=== PATIENT | male | born 1945 | race Caucasian/White ===

== ENCOUNTER → 2016-09-30 | Outpatient (CLI) | payer OTHER ==
[~2016-09-30] MED LIST: ASPI81TA28 PO; CLOTLOT2; CRG25 PO; DOFE125C PO; FINA5TAB PO; LSX20 PO; LTN/10 PO; SIMV20TA5 OR; SPR25 PO; XRL20 PO
--- NOTE | 2016-10-01 06:36 | PAP/PSG TECHNICIAN REPORT ---
[facility] Gsa Coordinator Polysomnogram Report Study name: None Report date: 10/01/2016 Study date: 09/30/2016 Referring Physician: DR. Jr JANSEN Name: JAJA FRASER Interpreting Physician: Kahlil Moran M.D. Date of : 1945 Gsa Coordinator: Manjeet Smith RPSGT. Sex: Male Age: 71 StudyType: PSG PAP Weight: 215 lbs Height: 71 years, Height 5' 8" BMI: 32.69 Medications: FINASTERIDE 5 MG, ATORVASTATIN CALCIUM 80 MG, CLOTRIMAZOLE-BETAMETHASONE, METOPROLOL SUCCINATE ER 25 MG, XARELTO 20 MG, VITAMIN D3 2000 UNIT Patient History PATIENT HAS HISTORY OF CORONARY ARTERY DISEASE, HYPERTENSION, PAROXYSMAL ATRIAL FIBRILLATION AND HYPERLIPIDEMIA. ALSO HAS HISTORY OF DAYTIME SLEEPINESS, SNORING AND FATIGUE. HE HAD A HOME SLEEP STUDY DONE AND WAS POSITIVE FOR YOU WITH AN AHI OF 16. HE IS HERE TODAY FOR A CPAP TITRATION. ESS = 19 RM 8 Parameters Monitored NPSG: E1-M2, E2-M1, Fp1-M2, Fp2-M1, F3-M2, F4-M2, F4-M1, C3-M2, C4-M2, C4-M1, O1-M2, O2-M2, O2-M1, T3-M2, T4-M1, P3-M2, P4-M1, CHIN1, CHIN2, HR, EKG, Legs, PFLOW, SNOR, FLOW, CFLOW, Tidal Volume, THOR, ABDO, SpO2, PLTH, CPRESS, ETCO2 Wave, ETCO2, pH Sleep Architecture Sleep Stages Time at Lights Off 10:02:05 PM STAGES Time (min.) TST (%) Time at Lights On 5:11:05 AM Wake 56.5 -- Total Recording Time (TRT) 429.50 min. N1 40.0 11 Total Sleep Period (TSP) 424.5 min. N2 243.5 65 Total Sleep Time (TST) 372.5min. N3 5.0 1 Awake Time 57.0 min. REM 84.0 23 Wake after Sleep Onset 53.0 min. Sleep Efficiency (SE) 87 % Sleep Onset Latency (CHANDAN) 3.5 min. Number of Stage 1 Shifts None Awakenings 35 Stage Changes 147 Number of REM periods 19 REM 84.0 23 REM Latency 60.5 min. NREM 288.5 77 Body Position Analysis Supine Right Left Side Prone Vertical Total Sleep Time (min.) 281.0 80.7 50.1 130.85 0.0 0.0 Total Sleep Time (%) 65% 22% 13% 35 0% N/A% Total Sleep Time REM (min.) 67.4 16.6 0.0 None 0.0 0.0 Total Sleep Time NREM (min.) 174.2 64.1 50.1 None 0.0 0.0 Intermittent Wake (min.) 39.4 3.6 13.5 None 0.0 0.0 Total Sleep Period (%) 66% None None None None None Arousals Myoclonus (PLM) * Events Count Index Events Count Index Spontaneous 86 14 Events Awake (PLMW) 29 30.8 Respiratory 33 5.2 Events Asleep w/ Arousal (PLMA) 17 2.7 PLM 17 3 Events Asleep w/o Arousal (PLMS) 105 16.9 Snoring 3 0 Total Asleep 122 19.7 Total 139 22 Total 151 21 Respiratory Analysis * CA OA MA CH H RERA Total Count 19 4 0 0 63 11 86 Index 3.1 0.6 0.0 0 10.1 2 15.6 Mean Duration 19.0 13.4 0.0 0.00 19.8 17.2 19.1 Longest Duration 30.4 14.9 0.0 0.00 0.0 20.1 35.8 Respiratory Event Summary Total Supine ~Supine Right Left Prone REM NREM Apneas Count 23 23 0 0 0 N/A 1 22 Index 3.7 6 0 0.0 0.0 N/A 1 5 Hypopneas (4% Desat) Count 63 53 10 1 9 N/A 2 61 Index 10.1 13.2 5 0.7 10.8 N/A 1.4 12.7 Apneas & All Hypopneas Count 86 76 10 1 9 N/A 3 83 Index 13.9 19 5 1 11 N/A 2.1 17.3 Respiratory Events (Content Writer+All Hyp+RERA) Count 86 86 11 1 10 N/A 3 83 Index 15.6 21 5 0.7 12.0 N/A 2.1 19.5 Respiratory Related Arousal Count 33 86 2 0 2 N/A 0 32 Index 5.2 7 1 0 2 N/A 0 7 Snoring Analysis Supine Right Left Prone REM NREM Total Snore duration 2.8 min Snores count 55 3 4 N/A 4 58 62 Snore mean duration 2.7 Sec Snores index 14 2 5 N/A 2.9 12.1 10.0 TST with snoring (%) 0.8% Desaturation Event Summary: Minimum %SpO2 Event Count Mean/Min/Max Duration(sec.) Desaturation Index % Time In Bed > 90 83 31.4 / 13.3 / 65.1 12.1 96.7 86 - 90 0 N/A 0.0 3.3 81 - 85 0 N/A 0.0 0.0 76 - 80 0 N/A 0.0 0.0 71 - 75 0 N/A 0.0 0.0 66 - 70 0 N/A 0.0 0.0 61 - 65 0 N/A 0.0 0.0 56 - 60 0 N/A 0.0 0.0 51 - 55 0 N/A 0.0 0.0 < 50 0 N/A 0.0 0.0 Total REM NREM Awake <50% 0.0 min. 0.0 min. 0.0 min. 0.0 min. 51 - 60% 0.0 min. 0.0 min. 0.0 min. 0.0 min. 61 - 70% 0.0 min. 0.0 min. 0.0 min. 0.0 min. 71 - 80% 0.0 min. 0.0 min. 0.0 min. 0.0 min. 81 - 90% 13.9 min. 6.0 min. 5.7 min. 2.2 min. 91 - 100% 413.0 min. 78.0 min. 281.6 min. 53.5 min. Average 93 92 93 94 Minimum SpO2 87 89 87 88 Desaturation Event Index 11.6 2.9 15.2 9.6 # Desat. Events below 89% 2 N/A 2 N/A Time(%) with Saturation below 89% 0.2 0.0 0.1 0.1 Time(min.) with Saturation below 89% 0.7 0.0 0.4 0.4 Time (mins) REM (mins) NREM (mins) % of TST SpO2 Below 90% 31 2 N29 0.7 SpO2 Below 88% 1 0 0 0 Heart Rate Analysis Min (bpm) Max (bpm) Average (bpm) Awake 47 127 57 NREM 44 76 54 REM 37 76 56 Overall 37 76 54 Supplemental O2 Values Minimum O2 level: None Value Start Time End Time Gsa Coordinator Comments Mr. Fraser slept in the right, left and supine positions. PAC's and PVC's noted. Leg movements noted. No bruxism noted. CPAP was initiated at +4 CMH2O and up-titrated to a level of +13 CMH2O At this pressure I switched to BIPAP due to high pressure, high leak and continued central apneas. I started BIPAP at 12/8 and up-titrated to 17/10 due to apneas and hypopneas. A Resmed Mirage Quattro full face size large mask was used during titration Mr. Fraser awoke to use the restroom 0 times during the night. Mr. Fraser stated I slept as well as I do when I am in my own bed. The final report will be interpreted and signed by a sleep physician. The completed physician report will then be placed in the patient medical record. Therapy Event: Therapy (cm H20) 4 5 6 7 8 9 10 11 Total Time at Pressure (min.) 29.7 24.6 11.0 15.9 39.5 9.7 8.3 12.2 TST at Pressure (min.) 23.2 24.6 10.5 14.9 38.5 9.7 8.3 10.7 # Periods 1 1 1 1 1 1 1 1 Sleep Onset (min.) 3.5 0.0 0.0 0.0 0.0 0.0 0.0 0.0 REM Onset (min.) N/A N/A 9.6 0.0 0.0 N/A N/A N/A Sleep Efficiency % 78 100 95 93 97 100 100 87 Wakefulness (%) 21.9 0.0 4.5 6.3 2.5 0.0 0.0 12.3 Wakefulness (min.) 6.5 0.0 0.5 1.0 1.0 0.0 0.0 1.5 NREM 1 (%) 8.4 4.1 18.1 21.9 13.9 0.0 0.0 8.4 NREM 1 (min.) 2.5 1.0 2.0 3.5 5.5 0.0 0.0 1.0 NREM 2 (%) 69.7 85.8 64.7 15.7 9.9 100.0 100.0 79.2 NREM 2 (min.) 20.7 21.1 7.1 2.5 3.9 9.7 8.3 9.6 NREM 3 (%) 0.0 10.1 0.0 0.0 0.0 0.0 0.0 0.0 NREM 3 (min.) 0.0 2.5 0.0 0.0 0.0 0.0 0.0 0.0 REM (%) 0.0 0.0 12.7 56.1 73.7 0.0 0.0 0.0 REM (min.) 0.0 0.0 1.4 8.9 29.2 0.0 0.0 0.0 # Arousals 3 9 8 6 12 6 5 7 Arousal Index 7.8 21.9 45.5 24.1 18.7 37.1 36.3 39.4 # Snore 2 2 6 3 5 5 6 1 Snore Index 5.2 4.9 34.1 12.0 7.8 30.9 43.6 5.6 AHI 5.2 14.6 56.9 20.1 7.8 43.2 36.3 28.1 AHI Supine N/A 61.4 75.1 51.4 7.8 43.2 36.3 28.1 AHI Non-Supine 5.2 12.7 0.0 5.8 N/A N/A N/A N/A NREM AHI 5.2 14.6 65.6 50.0 25.5 43.2 36.3 28.1 REM AHI N/A N/A 0.0 0.0 2.1 N/A N/A N/A RDI 5.2 14.6 56.9 20.1 7.8 49.4 43.6 28.1 # Obstructive 0 0 0 0 0 0 0 0 # Central Ap 0 0 5 0 0 0 0 1 # Mixed 0 0 0 0 0 0 0 0 # Hypopneas 2 6 5 5 5 7 5 4 RERAS 0 0 0 0 0 1 1 0 Total Respiratory Events 2 6 10 5 5 8 6 5 Time Below SpO2 89.00% (min.) 0.0 0.0 0.1 0.0 0.0 0.1 0.0 0.0 Mean NREM SpO2 (%) 93 93 93 93 93 93 93 94 Mean REM SpO2 (%) N/A N/A 91 91 92 N/A N/A N/A Mean Sleep SpO2 (%) 93 93 93 92 92 93 93 94 Min NREM SpO2 (%) 91 91 87 89 89 87 90 89 Min REM SpO2 (%) N/A N/A 89 89 89 N/A N/A N/A Position Supine (min.) 0.0 1.0 8.0 4.7 38.5 9.7 8.3 10.7 Position Non-supine (min.) 23.2 23.7 2.6 10.3 0.0 0.0 0.0 0.0 LM Index Sleep 7.8 12.2 5.7 8.0 3.1 37.1 29.1 16.9 LM Index NREM 7.8 12.2 6.6 10.0 12.8 37.1 29.1 16.9 LM Index REM N/A N/A 0.0 6.7 0.0 N/A N/A N/A Mean Heart Rate (bpm) 56 56 55 57 53 52 50 51 Min Heart Rate (bpm) 51 50 49 49 37 46 44 45 Therapy (cm H20) 12 13 12/8 13/9 14/9 15/10 16/10 17/10 Total Time at Pressure (min.) 40.2 10.5 15.7 38.8 92.6 9.0 6.3 64.9 TST at Pressure (min.) 31.7 9.5 7.7 35.8 84.1 9.0 5.3 48.9 # Periods 1 1 1 1 1 1 1 1 Sleep Onset (min.) 0.0 0.0 0.0 0.0 0.0 0.0 0.0 0.0 REM Onset (min.) N/A N/A N/A 24.5 0.0 N/A N/A 17.4 Sleep Efficiency % 78 90 49 92 90 100 84 75 Wakefulness (%) 21.1 9.5 50.9 7.7 9.2 0.0 15.9 24.7 Wakefulness (min.) 8.5 1.0 8.0 3.0 8.5 0.0 1.0 16.0 NREM 1 (%) 16.1 23.8 12.7 9.0 6.3 2.0 15.9 4.6 NREM 1 (min.) 6.5 2.5 2.0 3.5 5.8 0.2 1.0 3.0 NREM 2 (%) 56.5 66.7 36.4 59.4 75.1 98.0 68.2 29.9 NREM 2 (min.) 22.7 7.0 5.7 23.0 69.5 8.8 4.3 19.4 NREM 3 (%) 6.2 0.0 0.0 0.0 0.0 0.0 0.0 0.0 NREM 3 (min.) 2.5 0.0 0.0 0.0 0.0 0.0 0.0 0.0 REM (%) 0.0 0.0 0.0 23.9 9.4 0.0 0.0 40.8 REM (min.) 0.0 0.0 0.0 9.3 8.7 0.0 0.0 26.5 # Arousals 23 10 10 11 15 8 0 6 Arousal Index 43.5 63.0 77.7 18.4 10.7 53.2 0.0 7.4 # Snore 5 2 0 6 6 0 0 13 Snore Index 9.5 12.6 0.0 10.1 4.3 0.0 0.0 16.0 AHI 15.1 56.7 54.4 10.1 5.0 6.6 11.4 2.5 AHI Supine 15.1 56.7 67.4 19.1 12.7 6.6 11.4 2.5 AHI Non-Supine N/A N/A 36.7 0.0 0.0 N/A N/A N/A NREM AHI 15.1 56.7 54.4 11.3 4.8 6.6 11.4 5.4 REM AHI N/A N/A N/A 6.5 6.9 N/A N/A 0.0 RDI 18.9 69.3 62.1 10.1 5.0 33.2 11.4 2.5 # Obstructive 0 0 1 1 1 0 0 1 # Central Ap 3 6 0 2 1 0 0 1 # Mixed 0 0 0 0 0 0 0 0 # Hypopneas 5 3 6 3 5 1 1 0 RERAS 2 2 1 0 0 4 0 0 Total Respiratory Events 10 11 8 6 7 5 1 2 Time Below SpO2 89.00% (min.) 0.0 0.0 0.0 0.0 0.0 0.0 0.0 0.1 Mean NREM SpO2 (%) 94 94 94 93 93 92 93 93 Mean REM SpO2 (%) N/A N/A N/A 93 93 N/A N/A 92 Mean Sleep SpO2 (%) 94 94 94 93 93 92 93 93 Min NREM SpO2 (%) 91 91 90 90 90 90 89 88 Min REM SpO2 (%) N/A N/A N/A 90 91 N/A N/A 91 Position Supine (min.) 31.7 9.5 4.5 18.8 33.2 9.0 5.3 48.9 Position Non-supine (min.) 0.0 0.0 3.3 17.0 50.9 0.0 0.0 0.0 LM Index Sleep 51.1 25.2 7.8 33.5 22.8 6.6 0.0 13.5 LM Index NREM 51.1 25.2 7.8 43.0 23.1 6.6 0.0 2.7 LM Index REM N/A N/A N/A 6.5 20.6 N/A N/A 22.6 Mean Heart Rate (bpm) 52 53 53 54 55 54 55 55 Min Heart Rate (bpm) 44 46 46 47 47 47 49 46
--- NOTE | 2016-10-01 18:32 | POLYSOMNOGRAPH REPORT ---
CLINICAL DATA: A 71-year-old male with a BMI of 32.7, referred by Dr. Raimundo Carson with a history of snoring, fatigue, daytime sleepiness, and sleep apnea, diagnosed on a HSAT which showed moderate YOU with an AHI of 16. He was referred for a CPAP titration study. His [place] sleepiness score was elevated at 19/24. SLEEP ARCHITECTURE: Total sleep period was 424.5 minutes. Total sleep time was 372.5 minutes divided between 288.5 minutes of non-REM sleep and 84 minutes of REM sleep. Sleep onset latency was 3.5 minutes. REM latency was 60.5 minutes. Sleep efficiency was 87%. Wake after sleep onset was 53 minutes. Sleep consisted of stage N1 11%, N2 65% and N3 1%, and REM 23%. AROUSAL DATA: One hundred and thirty nine arousals were recorded for index of 22 per hour - 86 were spontaneous. PERIODIC LIMB MOVEMENTS DATA: Mildly elevated limb movements during sleep were noted. There were 122 limb movements during sleep noted for an index of 19.7 per hour with an arousal index of 2.7 per hour. RESPIRATORY DATA: The AHI was 13.9. There were 19 central and 4 obstructive apneic episodes. The longest duration of apnea was 30.4 seconds. There were 63 hypopneic episodes. The mean duration of hypopnea was 19.8 seconds. OXIMETRY DATA: Mild nocturnal hypoxemia was seen. Oxygen jose guadalupe was 87% during non-REM sleep. The mean saturation was 93%. Time below 88% was 1 minute. ELECTROCARDIOGRAM: Heart rates ranged from 37-76 beats per minute. PACs and PVCs were noted. DRAWER IN JACQUARD LOOM'S COMMENTS AND TREATMENT SUMMARY: The patient slept in the right, left, and supine positions. Initially CPAP was started and titrated up to 13 cm of water pressure; however, due to high pressure and high leak and central apneic episodes, the patient was started on BiPAP 12/8 and titrated up to 17/10. He used a ResMed Mirage Quattro full face/large mask. At his final pressure setting of BiPAP 17/10, the patient slept for 48.9 minutes with an AHI of 3.5. IMPRESSION: Moderate obstructive sleep apnea/hypopnea, corrected with BIPAP 17/10 ResMed Mirage Quattro full face mask, large size. RECOMMENDATIONS: The patient could be started on the above noted treatment regimen and seen back in followup within 90 days to document efficacy and compliance. MTDD
== END | disposition home or self-care (01) ==
LOC: C.NEUR 21:00
PROVIDERS: ATTEND Internal Medicine
DX: G47.33 Obstructive sleep apnea (adult) (pediatric) (principal)

== ENCOUNTER → 2017-02-14 | Outpatient (CLI) | payer OTHER ==
[2017-02-14 12:11] LABS: BASO % 0.5 %; BASO ABS # 0.04 K/uL (0-0.2); COMPLETE YES; EOS % 3.6 %; HEMATOCRIT 46.6 % (42-52); IG% 0.8 %; LYMPH % 32.5 %; LYMPH ABS # 2.68 K/uL (1.2-3.4); MEAN CELL VOLUME 89.8 fL (80-100); MEAN CORPUSCULAR HEMOGLOBIN 30.1 pg (25-34); MEAN CORPUSCULAR HGB CONC 33.5 g/dl (32-36); MEAN PLATELET VOLUME 11.6 fL (7.4-10.4); MONO % 9.6 %; PLATELET COUNT 165 K/uL (130-400); RED BLOOD COUNT 5.19 M/uL (4.7-6.1); WHITE BLOOD COUNT 8.24 K/uL (4.8-10.8)
[2017-02-14 12:35] LABS: ALT/SGPT 30 U/L (12-78); BLOOD UREA NITROGEN 19 mg/dl (7-18); BUN/CREATININE RATIO 18.9 (10-20); CALCIUM 9.2 mg/dl (8.5-10.1); CARBON DIOXIDE 26 mmol/L (21-32); CHLORIDE 105 mmol/L (98-107); CHOLESTEROL 123 mg/dl (0-200); CREATININE 0.98 mg/dl (0.60-1.40); GLUCOSE 83 mg/dl (70-99); POTASSIUM 3.8 mmol/L (3.5-5.1); SODIUM 140 mmol/L (136-145)
[2017-02-14 12:39] LABS: ALB/GLOB RATIO 1.1 (0.9-2); ALKALINE PHOSPHATASE 65 U/L (45-117); AST/SGOT 23 U/L (15-37); CHOLESTEROL/HDL RATIO 2.9; HDL CHOLESTEROL 43 mg/dl; LDL CHOLESTEROL CALCULATED 59 mg/dl; PROSTATE SPECIFIC ANTIGEN 0.547 ng/ml (0.000-4.000); TRIGLYCERIDES 104 mg/dl (0-150); VERY LOW DENSITY LIPOPROT CALC 21 mg/dl
--- NOTE | 2017-02-18 13:21 | CODING QUERY MEDICAL NECESSITY ---
SUPPORTING DIAGNOSIS NEEDED A supporting diagnosis is required for the test/procedure performed on this patient in order for us to be reimbursed by the patient's insurance. Please provide a supporting diagnosis for the following test/procedure listed below next to the test name along with your signature. *If there is no additional diagnosis for this patient that would support the following test/procedure please document that below next to the test/procedure. Test(s)/Procedure(s) that require a supporting diagnosis: * PSA DIAGNOSIS: Provider Signature: Date: Thank you Emily Lares [employer] Information Management Once completed, please kindly fax back to [phone] For questions please call [phone]
== END | disposition home or self-care (01) ==
LOC: C.LABBFT 09:11
PROVIDERS: ATTEND Internal Medicine
DX: G47.33 Obstructive sleep apnea (adult) (pediatric) (principal); N40.1 Benign prostatic hyperplasia with lower urinary tract symptoms

== ENCOUNTER → 2017-06-07 | Outpatient (CLI) | payer OTHER ==
[~2017-06-07] MED LIST changes: +ATOR-26 PO; +CHOL2000 PO; +METO25TA3 PO
[2017-06-07 12:18] LABS: HEMATOCRIT 50.3 % (42-52); HEMOGLOBIN 17.1 g/dL (14.0-18.0); MEAN CELL VOLUME 88.9 fL (80-100); MEAN CORPUSCULAR HEMOGLOBIN 30.2 pg (25-34); MEAN PLATELET VOLUME 11.6 fL (7.4-10.4); PLATELET COUNT 194 K/uL (130-400); RED CELL DISTRIBUTION WIDTH CV 13.6 % (11.5-14.5); RED CELL DISTRIBUTION WIDTH SD 44.3 fL (36.4-46.3); WHITE BLOOD COUNT 10.61 K/uL (4.8-10.8)
[2017-06-07 16:43] LABS: ALKALINE PHOSPHATASE 58 U/L (45-117); ALT/SGPT 41 U/L (12-78); AST/SGOT 29 U/L (15-37); BLOOD UREA NITROGEN 23 mg/dl (7-18); CALCIUM 8.6 mg/dl (8.5-10.1); CARBON DIOXIDE 26 mmol/L (21-32); CREATININE 1.09 mg/dl (0.60-1.40); GLUCOSE 97 mg/dl (70-99); POTASSIUM 4.7 mmol/L (3.5-5.1); SODIUM 136 mmol/L (136-145)
[2017-06-07 16:53] LABS: TOTAL PROTEIN 7.6 gm/dl (6.4-8.2)
== END | disposition home or self-care (01) ==
LOC: C.LAB1850 11:04
PROVIDERS: ATTEND Internal Medicine Cardiovascular Disease
DX: Z51.81 Encounter for therapeutic drug level monitoring (principal); Z79.01 Long term (current) use of anticoagulants

== ENCOUNTER → 2017-06-09 | Day surgery (SDC) | payer OTHER ==
[~2017-06-09] VITALS: Ht 172.7 cm; Wt 102.5 kg
[~2017-06-09] MED LIST changes: +LIDOCAINE HCL 2% 2 ML VIAL (20MG/ML) ONE; +PROPOFOL IV EMULSION 10 MG/ML 20 ML VIAL IV ONE
[2017-06-09 06:55] VITALS: BP 122/77; PULSE 105; TEMP 36.7; O2SAT 98; Ht 172.7 cm; Wt 102.5 kg
[2017-06-09 07:30] VITALS: BP 95/76; PULSE 106; O2SAT 98
[2017-06-09 07:31] VITALS: BP 100/76; PULSE 55; O2SAT 98
[2017-06-09 07:35] VITALS: BP 86/61; PULSE 55; O2SAT 98
--- NOTE | 2017-06-09 07:36 | History & Physical Bridge Note ---
H&P Re-Evaluation Bridge Note: I have examined the patient, reviewed the History & Physical and in the interval since the performance of the History & Physical I have noted the following changes of clinical significance: Rhythm still AFL. Compliant with anticoagulation. No changes noted
[2017-06-09 07:40] VITALS: BP 87/60; PULSE 86; O2SAT 95
--- NOTE | 2017-06-09 07:41 | Procedure Note ---
Procedure Note Date of Service Jun 09, 2017. Procedure Note Procedure performed: Cardioversion Indication: Atrial flutter Staff motorcycle delivery driver: Gee Leo MD Procedure in detail: The patient was informed of the risks benefits and alternatives to the intended procedure. He understood such which proceed. He was taken to the cardiac catheterization suite holding area. A general anesthetic was administered by the Anesthesiology Service. Once appropriately anesthetized, the patient was cardioverted using 100 joules delivered in a biphasic fashion. This returned the patient to sinus rhythm. The patient tolerated procedure well, there were no immediate complications. Patient was neurologically intact subsequent to the procedure. Impression: Successful cardioversion from atrial flutter to normal sinus rhythm
--- NOTE | 2017-06-09 07:43 | Discharge Instructions ---
Discharge Instructions Procedure Procedure Date: Jun 09, 2017. Reason for Visit: A Fib * W/Anesthesia. Discharge Discharge Date: Jun 09, 2017. Discharge Diagnosis: Atrial flutter Last Recorded Wt (Kilograms): 102.5 Anesthesia Post Anesthesia Instructions: If you have had General Anesthesia or IV Sedation: * Do not drive today. * Resume driving when surgeon permits. * Do not make important decisions or sign legal documents today. * Call surgeon for: 1. Temperature elevations greater than 101 degrees F. 2. Uncontrollable pain. 3. Excessive bleeding. 4. Persistent nausea and vomiting. 5. Medication intolerance (nausea, vomiting or rash). * For nausea and vomiting use only clear liquids such as: tea, soda, bouillon until nausea subsides, then gradually increase diet as tolerated. * If you have any concerns or questions, call your surgeon's office. If physician is unavailable and it is an emergency, call 911 or go to the nearest emergency room. Instructions Activity Recommendations: driving or machine use limit Return to School/Work: with no limitations Recommended Home Diet: resume previous diet Allergies: Coded Allergies: No Known Allergies (Verified , 03/19/14) Follow Up [facility] [place] Recommendations: Call your doctor if: * Temperature above 101 degrees * Pain not relieved by pain medicine ordered * There is increased drainage or redness from any incision * You have any unanswered questions or concerns. Your Doctors Instructions noted above were prepared by provider Bautista Leo. Patient Signature Section: Patient Instructions Signature Page Varun Fraser Patient (or Guardian) Signature/Date: I have read and understand the instructions given to me by my caregivers. Caregiver/RN/Doctor Signature/Date: The above-named patient and/or guardian has received patient instructions on this date. + Original Patient Signature Page (only) stays with chart. Please make copy for patient.
--- NOTE | 2017-06-09 07:45 | Anesthesiology Progress Note ---
Anesthesia Post Op Note Date & Time Jun 09, 2017 at 07:45 Vital Signs Pain Intensity: 0 Vital Signs Past 12 Hours Date Time Temp Pulse Resp B/P (MAP) Pulse Ox O2 Delivery O2 Flow Rate FiO2 06/09/17 07:35 55 16 86/61 98 Nasal Cannula 4 06/09/17 07:31 55 16 100/76 98 Nasal Cannula 4 06/09/17 07:30 106 16 95/76 98 Nasal Cannula 4 06/09/17 06:55 36.7 105 16 122/77 (92) 98 Room Air Notes Mental Status: alert / awake / arousable, participated in evaluation Pt Amnestic to Procedure: Yes Nausea / Vomiting: adequately controlled Pain: adequately controlled Airway Patency, RR, SpO2: stable & adequate BP & HR: stable & adequate Hydration State: stable & adequate Anesthetic Complications: no major complications apparent
[2017-06-09 08:30] VITALS: BP 115/70; PULSE 58; O2SAT 96
== END | disposition home or self-care (01) ==
LOC: C.CATH 06:32
PROVIDERS: ATTEND Internal Medicine Clinical Cardiac Electrophysiology
DX: I48.0 Paroxysmal atrial fibrillation (principal); I48.92 Unspecified atrial flutter; I11.0 Hypertensive heart disease with heart failure; I50.9 Heart failure, unspecified; I25.10 Atherosclerotic heart disease of native coronary artery without angina pectoris; I42.9 Cardiomyopathy, unspecified; E78.5 Hyperlipidemia, unspecified; Z79.01 Long term (current) use of anticoagulants; G47.33 Obstructive sleep apnea (adult) (pediatric); R91.1 Solitary pulmonary nodule; N40.1 Benign prostatic hyperplasia with lower urinary tract symptoms; N13.8 Other obstructive and reflux uropathy; M19.90 Unspecified osteoarthritis, unspecified site; E66.9 Obesity, unspecified; Z68.34 Body mass index [BMI] 34.0-34.9, adult; Z87.891 Personal history of nicotine dependence; Z79.899 Other long term (current) drug therapy

== ENCOUNTER → 2017-08-16 | Outpatient (CLI) | payer OTHER ==
[~2017-08-16] MED LIST changes: -ASPI81TA28 PO; -CRG25 PO; -DOFE125C PO; -LIDOCAINE HCL 2% 2 ML VIAL (20MG/ML) ONE; -LSX20 PO; -LTN/10 PO; -PROPOFOL IV EMULSION 10 MG/ML 20 ML VIAL IV ONE; -SIMV20TA5 OR; -SPR25 PO; +TPRSR50 PO
[2017-08-16 15:39] LABS: HEMATOCRIT 46.3 % (42-52); HEMOGLOBIN 15.9 g/dL (14.0-18.0); MEAN CELL VOLUME 88.2 fL (80-100); MEAN CORPUSCULAR HEMOGLOBIN 30.3 pg (25-34); MEAN CORPUSCULAR HGB CONC 34.3 g/dl (32-36); MEAN PLATELET VOLUME 11.4 fL (7.4-10.4); PLATELET COUNT 150 K/uL (130-400); RED CELL DISTRIBUTION WIDTH CV 13.8 % (11.5-14.5); RED CELL DISTRIBUTION WIDTH SD 44.6 fL (36.4-46.3); WHITE BLOOD COUNT 9.38 K/uL (4.8-10.8)
[2017-08-16 15:49] LABS: BLOOD UREA NITROGEN 25 mg/dl (7-18); CALCIUM 9.1 mg/dl (8.5-10.1); CARBON DIOXIDE 27 mmol/L (21-32); CREATININE 1.14 mg/dl (0.60-1.40); GLUCOSE 86 mg/dl (70-99); SODIUM 137 mmol/L (136-145)
== END | disposition home or self-care (01) ==
LOC: C.LAB1850 14:08
PROVIDERS: ATTEND Internal Medicine Cardiovascular Disease
DX: I48.92 Unspecified atrial flutter (principal)

== ENCOUNTER → 2017-08-19 | Day surgery (SDC) | payer OTHER ==
[~2017-08-19] VITALS: Ht 172.7 cm; Wt 100.0 kg
[~2017-08-19] MED LIST changes: +LIDOCAINE HCL 2% 2 ML VIAL (20MG/ML) ONE; -METO25TA3 PO; +PROPOFOL IV EMULSION 10 MG/ML 20 ML VIAL IV ONE
[2017-08-19 07:20] VITALS: BP 126/99; PULSE 101; TEMP 36.9; O2SAT 96; Ht 172.7 cm; Wt 100.0 kg
[2017-08-19 07:34] VITALS: BP 129/94; PULSE 109; O2SAT 92
[2017-08-19 07:35] VITALS: BP 102/74; PULSE 62; O2SAT 92
[2017-08-19 07:37] VITALS: BP 101/79; PULSE 60; O2SAT 96
[2017-08-19 07:43] VITALS: BP 91/66; PULSE 60; O2SAT 96
--- NOTE | 2017-08-19 07:48 | Anesthesiology Progress Note ---
Anesthesia Post Op Note Date & Time Aug 19, 2017 at 07:48 Vital Signs Pain Intensity: 0 Vital Signs Past 12 Hours Date Time Temp Pulse Resp B/P (MAP) Pulse Ox O2 Delivery O2 Flow Rate FiO2 08/19/17 07:43 60 16 91/66 96 Nasal Cannula 5 08/19/17 07:37 60 16 101/79 96 Nasal Cannula 5 08/19/17 07:35 62 16 102/74 92 Nasal Cannula 5 08/19/17 07:34 109 16 129/94 92 Nasal Cannula 5 08/19/17 07:20 36.9 101 16 126/99 (108) 96 Room Air Notes Mental Status: alert / awake / arousable, participated in evaluation Pt Amnestic to Procedure: Yes Nausea / Vomiting: adequately controlled Pain: adequately controlled Airway Patency, RR, SpO2: stable & adequate BP & HR: stable & adequate Hydration State: stable & adequate Anesthetic Complications: no major complications apparent
--- NOTE | 2017-08-19 07:59 | Discharge Instructions ---
Discharge Instructions Procedure Procedure Date: Aug 19, 2017. Reason for Visit: Atrial FlutterZoda To DoAnesthesia Needed. Discharge Discharge Date: Aug 19, 2017. Discharge Diagnosis: Successful electrical cardioversion of atrial flutter to sinus rhythm Last Recorded Wt (Kilograms): 100 Anesthesia Post Anesthesia Instructions: If you have had General Anesthesia or IV Sedation: * Do not drive today. * Resume driving when surgeon permits. * Do not make important decisions or sign legal documents today. * Call surgeon for: 1. Temperature elevations greater than 101 degrees F. 2. Uncontrollable pain. 3. Excessive bleeding. 4. Persistent nausea and vomiting. 5. Medication intolerance (nausea, vomiting or rash). * For nausea and vomiting use only clear liquids such as: tea, soda, bouillon until nausea subsides, then gradually increase diet as tolerated. * If you have any concerns or questions, call your surgeon's office. If physician is unavailable and it is an emergency, call 911 or go to the nearest emergency room. Instructions Activity Recommendations: driving or machine use limit (No driving till tomorrow) Recommended Home Diet: low sodium, low cholesterol Allergies: Coded Allergies: No Known Allergies (Verified , 03/19/14) Follow Up Follow-up with: Dr. Armenta on July [facility] Recommendations: Call your doctor if: * Temperature above 101 degrees * Pain not relieved by pain medicine ordered * There is increased drainage or redness from any incision * You have any unanswered questions or concerns. Your Doctors Instructions noted above were prepared by provider Mickey Armenta. Patient Signature Section: Patient Instructions Signature Page Varun Fraser Patient (or Guardian) Signature/Date: I have read and understand the instructions given to me by my caregivers. Caregiver/RN/Doctor Signature/Date: The above-named patient and/or guardian has received patient instructions on this date. + Original Patient Signature Page (only) stays with chart. Please make copy for patient.
[2017-08-19 08:18] VITALS: BP 99/77; PULSE 57; O2SAT 97
--- NOTE | 2017-08-19 16:15 | Cardiology Progress Note ---
Cardiology Progress Note Date of Service Aug 19, 2017. Cardiology Progress Note Procedure: Elective electrical cardioversion. Clinical indications: Atrial flutter. Protocol: The patient was given deep sedation with intravenous propofol. This was administered by Dr. Chance Reed of the Anesthesiology Department. After adequate sedation was obtained the patient was given 1 shock of 100 joules of synchronized biphasic energy. Administered via electrode pads placed anteriorly and posteriorly on his thorax. Results: With the 1 electrical shock he was converted from atrial flutter to sinus bradycardia. He was hemodynamically stable. Oxygen saturation was stable. He awoke several minutes later without any cardiac or neurologic complaints. Complications: None. Plan: The patient will remain on metoprolol succinate ER. The dose will be 50 milligrams b.i.d.. He remain on long-term anticoagulation therapy. He has a cardiology follow-up appointment scheduled with Dr. Mickey Armenta on August 26, 2017.
== END | disposition home or self-care (01) ==
LOC: C.CATH 06:44
PROVIDERS: ATTEND Internal Medicine Cardiovascular Disease
DX: I48.0 Paroxysmal atrial fibrillation (principal); I48.92 Unspecified atrial flutter; I42.9 Cardiomyopathy, unspecified; E78.5 Hyperlipidemia, unspecified; I10 Essential (primary) hypertension; I25.10 Atherosclerotic heart disease of native coronary artery without angina pectoris; Z68.33 Body mass index [BMI] 33.0-33.9, adult; E66.9 Obesity, unspecified; G47.33 Obstructive sleep apnea (adult) (pediatric); Z79.01 Long term (current) use of anticoagulants; Z87.891 Personal history of nicotine dependence; Z98.890 Other specified postprocedural states; Z79.899 Other long term (current) drug therapy; Z83.3 Family history of diabetes mellitus; Z82.49 Family history of ischemic heart disease and other diseases of the circulatory system

== ENCOUNTER 2020-12-25 18:42 | Inpatient (IN) ==
[2020-12-25] MEDS ORDERED: ACETAMINOPHEN 1,000 MG/100 ML VIAL IV STA (19:30)
[2020-12-25] MEDS ORDERED: SODIUM CHLORIDE 0.9% 1000ML 1,000 ML IV SCH (19:30)
--- NOTE | 2020-12-25 19:30 | Emergency Department Note ---
History of Present Illness General Chief complaint: Sore Throat Stated complaint: SEVERE SORE THROAT, OXYGEN LEVEL UNDER 80 Time Seen by Provider: 12/25/20 19:13 Source: patient Mode of arrival: ambulatory Limitations: no limitations History of Present Illness Provider complaint: sore throat, cough Onset (ago): day(s) 3 Severity: moderate Maximum Pain Intensity: 8 Associated symptoms: + cough, + fever/chills, + loss of appetite, + malaise and + shortness of breath This is a 75-year-old male who presents emergency department complaining of several days of sore throat, nasal congestion, and cough. Patient states sore throat has been the worst of it although he has also on noticed subjective fevers and chills, body aches. States his cough is typically productive of yellow sputum, denies hemoptysis. Patient denies any history of asthma COPD, denies any history of tobacco abuse. States he feels very winded and out of breath quickly when he walks. Patient states he has a home pulse oximeter machine when he measured his pulse ox earlier today his oxygen saturations were in the 80s. He states after he sat for a little bit it came up to the low 90s. Patient states he went to an urgent care facility and was swabbed for both strep pharyngitis as well as Covid however does not know the results. He was en couraged to come to the emergency room anyway. Patient denies any recent travel or known sick contacts. Patient states he is anticoagulated due to history of atrial fibrillation. Patient has had prior cardiac ablations. His local claim manager is Dr. Leo. Pt seen during a time of high acuity and national emergency pandemic while wearing PPE. Home Medications Medication Instructions Recorded Confirmed Type cholecalciferol (vitamin D3) 50 2,000 units PO DAILY cap 02/13/19 12/25/20 History mcg (2,000 unit) capsule rivaroxaban 20 mg tablet 20 mg PO DAILY #90 tab 01/09/20 12/25/20 Rx lisinopril 2.5 mg tablet 2.5 mg PO DAILY #90 tab 02/29/20 12/25/20 Rx finasteride 5 mg tablet 5 mg PO DAILY #90 tab 03/11/20 12/25/20 Rx atorvastatin 80 mg tablet 80 mg PO QPM #90 tab 03/20/20 12/25/20 Rx ezetimibe 10 mg tablet (Zetia) 10 mg PO DAILY #90 tab 03/24/20 12/25/20 Rx metoprolol succinate 50 mg 50 mg PO DAILY #90 tab 08/04/20 12/25/20 Rx tablet,extended release 24 hr Allergies Allergy/AdvReac Type Severity Reaction Status Date / Time No Known Allergies Allergy Verified 12/25/20 20:50 Past Med/Surg History Medical History (Updated 12/27/20 @ 07:19 by Veronica Ellis DO) Atrial fibrillation Pulmonary vein isolation 01/2014 Trial of dofetilide with QT prolongation necessitating discontinuation Repeat pulmonary vein isolation with atrial tachycardia originating from the left inferior pulmonary vein and caval tricuspid isthmus ablation 04/2014 Repeat pulmonary vein isolation, caval tricuspid isthmus ablation and lateral mitral linear ablation as well as isolation of the posterior wall 11/2015 Amiodarone for recurrent atrial flutter with cardioversion 10/2017 Pulmonary vein isolation and ablation of left atrial roof dependent flutter 06/2018 Atrial flutter 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 Cardiomyopathy Community acquired pneumonia Coronary artery disease Catheterization 2013, occluded left circumflex after OM 1, 50-60% lad lesion, diffuse right coronary disease Gout, joint Tubular adenoma of colon Surgical History History of Achilles tendon repair History of arthroscopy of knee History of colonoscopy History of heart surgery History of rotator cuff surgery History of transurethral resection of prostate Family History Father , Age 89 Cardiac disorder Stroke Myocardial infarction Mother Cardiac disorder Hypertension Cancer Other Diabetes Heart disease No family history of bleeding disorder Denies family history of Ovarian cancer Prostate cancer Breast cancer Colorectal cancer Social History Smoking Status: Former smoker Tobacco Type: Cigarettes Age Started Using Tobacco: 21; Age Quit Using Tobacco: 40; Smoking End Date: 40 years ago; Second Hand Exposure: No; Hx Alcohol Use: Yes Alcohol type: beer and wine Alcohol Intake Frequency: 2-3 x /Week Hx Substance Use: No Preferred Language: Angolan Communication Ability: Effective Visual Impairment: Limited Hearing Ability: Use of Hearing Aid Residential Designer Required: No Beliefs That Will Affect Care: None marital status: Current Living Situation: Spouse current occupational status: retired How many Children do You have: 4 Feels Safe at Home: Yes Safety Concerns: Feels Safe At This Time Childhood Exposure to Second-Hand Smoke: No caffeine: Yes (coffee) Dental Care, Regularly: Yes Physical Activity Frequency: 1-2 Times per Week Seatbelt Use: always Sunscreen Use: Yes Assistive Devices: BiPap Review of Systems A total of 10 systems reviewed and were otherwise negative All systems reviewed & are unremarkable except as noted in HPI & below Physical Exam Vital Signs Vital Signs - 24 hr 12/25/20 19:08 12/25/20 20:02 12/25/20 20:05 Temperature 38 C H Temperature Source Temporal Artery Scan Pulse Rate 84 92 H Pulse Rate [Apical] 80 Pulse Rate from SpO2 Sensor 94 H Pulse Rhythm [Apical] Regular Pulse Strength [Apical] Normal Respiratory Rate 18 20 18 Respiratory Effort / Characteristics Non-Labored Spontaneous Non-Labored Spontaneous Respiratory Depth Normal Normal Respiratory Pattern Regular Blood Pressure 157/84 H 178/89 H Blood Pressure [Left Arm] 178/89 H Blood Pressure Mean 108 118 Blood Pressure Mean [Left Arm] 118 Blood Pressure Position [Left Arm] Lying Pulse Oximetry 93 92 94 Oxygen Delivery Method Room Air Room Air Sepsis Recent Fever Within 48 Hours No Sepsis New/Unexplained Change in Mental Status No Sepsis Action Taken by Nursing No Action Required 12/25/20 21:04 12/25/20 21:30 12/25/20 22:00 Temperature Temperature Source Pulse Rate 77 82 83 Pulse Rate [Apical] Pulse Rate from SpO2 Sensor 77 82 80 Pulse Rhythm [Apical] Pulse Strength [Apical] Respiratory Rate 22 24 19 Respiratory Effort / Characteristics Respiratory Depth Respiratory Pattern Blood Pressure 136/78 143/83 H 132/75 Blood Pressure [Left Arm] Blood Pressure Mean 97 103 94 Blood Pressure Mean [Left Arm] Blood Pressure Position [Left Arm] Pulse Oximetry 92 91 94 Oxygen Delivery Method Sepsis Recent Fever Within 48 Hours Sepsis New/Unexplained Change in Mental Status Sepsis Action Taken by Nursing GENERAL: alert, well appearing, well nourished, no distress, non-toxic EYE EXAM: normal conjunctiva, PERRL and EOM's grossly intact EARS: TMs clear bilaterally without erythema or effusion, no edema along the canals OROPHARYNX: no exudate, no erythema, lips, buccal mucosa, and tongue normal and mucous membranes are moist, uvula midline, no mucocutaneous lesions NECK: supple, no nuchal rigidity, no adenopathy, non-tender LUNGS: Clear to auscultation. Normal chest wall mechanics, no w/r/r HEART: no murmurs, S1 normal and S2 normal ABDOMEN: abdomen soft, non-tender, normo-active bowel sounds, no masses, no rebound or guarding. BACK: Back is symmetrical on inspection and there is no deformity, no midline tenderness, no CVA tenderness. SKIN: no rashes and no bruising, no petechiae UPPER EXTREMITIES: upper extremities are grossly normal. FROM, nml pulses b/l. LOWER EXTREMITIES: No pitting edema. FROM, nml pulses b/l. NEURO EXAM: Normal sensorium, cranial nerves II-XII grossly intact, normal speech, no gross weakness of arms, no gross weakness of legs. No ataxia. Gross sensation intact. Course Course 2210: Updated patient and at bedside on results. He believes last time he underwent an echo with his claim manager was a little over a year ago. Administered Medications Acetaminophen (Acetaminophen 325 Mg Tab) 650 mg PO Q4H PRN PRN Reason: pain/fever Stop: 01/25/21 00:48 Last Admin: 12/26/20 19:32 Dose: 650 mg Documented by: [id number] Admin: 12/26/20 08:52 Dose: 650 mg Documented by: [id number] Atorvastatin Calcium (Atorvastatin 40 Mg Tab) 80 mg PO QPM RAY Stop: 01/25/21 20:59 Last Admin: 12/26/20 19:32 Dose: 80 mg Documented by: [id number] Ezetimibe (Ezetimibe 10 Mg Tablet) 10 mg PO DAILY RAY Stop: 01/25/21 08:59 Last Admin: 12/26/20 08:24 Dose: 10 mg Documented by: [id number] Finasteride (Finasteride 5 Mg Tab) 5 mg PO DAILY RAY Stop: 01/25/21 08:59 Last Admin: 12/26/20 08:24 Dose: 5 mg Documented by: [id number] Azithromycin 500 mg/ Dextrose 255 mls @ 125 mls/hr IV Q24H RAY Stop: 01/02/21 01:59 Last Infusion: 12/27/20 05:47 Dose: 0 mls/hr Documented by: [id number] Admin: 12/27/20 02:23 Dose: 125 mls/hr Documented by: [id number] Infusion: 12/26/20 03:59 Dose: 0 mls/hr Documented by: [id number] Admin: 12/26/20 02:03 Dose: 125 mls/hr Documented by: [id number] Ampicillin Sodium/Sulbactam Sodium 3,000 mg/ Sodium Chloride 108 mls @ 200 mls/hr IV Q6H RAY; Protocol Stop: 01/02/21 00:59 Last Infusion: 12/27/20 03:16 Dose: 0 mls/hr Documented by: [id number] Admin: 12/27/20 02:23 Dose: 200 mls/hr Documented by: [id number] Infusion: 12/26/20 20:38 Dose: 0 mls/hr Documented by: [id number] Admin: 12/26/20 19:32 Dose: 200 mls/hr Documented by: [id number] Infusion: 12/26/20 14:09 Dose: 0 mls/hr Documented by: [id number] Admin: 12/26/20 13:02 Dose: 200 mls/hr Documented by: [id number] Infusion: 12/26/20 09:19 Dose: 0 mls/hr Documented by: [id number] Admin: 12/26/20 08:28 Dose: 200 mls/hr Documented by: [id number] Infusion: 12/26/20 01:58 Dose: 0 mls/hr Documented by: [id number] Admin: 12/26/20 01:25 Dose: 200 mls/hr Documented by: [id number] Lisinopril (Lisinopril 2.5 Mg Tab) 2.5 mg PO DAILY RAY Stop: 01/25/21 08:59 Last Admin: 12/26/20 08:25 Dose: 2.5 mg Documented by: [id number] Metoprolol Succinate (Metoprolol Succ 50mg Ext Rel Tab) 50 mg PO DAILY RAY Stop: 01/25/21 08:59 Last Admin: 12/26/20 08:24 Dose: 50 mg Documented by: [id number] Rivaroxaban (Rivaroxaban 20 Mg Tab) 20 mg PO DAILY [facility] Stop: 01/25/21 08:59 Last Admin: 12/26/20 08:24 Dose: 20 mg Documented by: [id number] Vitamin D (Cholecalciferol 1,000 Units 25 Mcg Tab) 2,000 units PO DAILY [facility] Stop: 01/25/21 08:59 Last Admin: 12/26/20 08:25 Dose: 2,000 units Documented by: [id number] Discontinued Medications Nystatin 0.625 ml/Dexamethasone 0.078 mg/Diphenhydramine HCl 6.25 mg/Sucrose 0.94 ml/Microcrystalline Cellulose 0. 94 ml/ BARCODE IDENTIFIER 1 ea 0 ml PO ONE ONE Stop: 12/25/20 19:31 Last Admin: 12/25/20 20:30 Dose: 5 ml Documented by: [id number] Sodium Chloride (Nss 1000ml) 1,000 mls @ 125 mls/hr IV .Q8H RAY Stop: 01/24/21 19:29 Last Infusion: 12/26/20 01:03 Dose: 0 mls/hr Documented by: [id number] Admin: 12/25/20 20:12 Dose: 125 mls/hr Documented by: [id number] Acetaminophen (Ofirmev) 1,000 mg in 100 mls @ 400 mls/hr IV NOW STA Stop: 12/25/20 19:44 Last Infusion: 12/25/20 20:42 Dose: 0 mls/hr Documented by: [id number] Admin: 12/25/20 20:11 Dose: 400 mls/hr Documented by: [id number] Medical Decision Making Differential Diagnosis Differential diagnosis: Etiologies such as viral syndrome, otitis, pharyngitis, pneumonia, influenza, meningitis, urinary tract infection, sepsis, bacteremia, as well as others were entertained. Medical Records Attestation: I reviewed the patient's medical records. Home Medications Current Medication List: was personally reviewed by me Laboratory Data Attestation: I reviewed the patient's lab results. Result diagrams: 12/26/20 01:49 12/26/20 01:46 Lab Results 12/25/20 12/25/20 12/25/20 Range/Units 19:54 19:54 20:05 WBC 8.98 (4.8-10.8) K/uL RBC 5.14 (4.7-6.1) M/uL Hgb 15.9 (14.0-18.0) g/dL Hct 46.8 (42-52) % MCV 91.1 (80-100) fL MCH 30.9 (25-34) pg MCHC 34.0 (32-36) g/dL RDW Std Deviation 49.0 H (36.4-46.3) fL RDW Coeff of Nevaeh 14.4 (11.5-14.5) % Plt Count 110 L (130-400) K/uL MPV 10.4 (7.4-10.4) fL Immature Gran % (Auto) 0.3 % Neut % (Auto) 71.7 % Lymph % (Auto) 14.3 % [place] % (Auto) 13.6 % Eos % (Auto) 0.0 % Baso % (Auto) 0.1 % Neut # (Auto) 6.44 (1.4-6.5) K/uL Lymph # (Auto) 1.28 (1.2-3.4) K/uL [place] # (Auto) 1.22 H (0.11-0.59) K/uL Eos # (Auto) 0.00 (0-0.5) K/uL Baso # (Auto) 0.01 (0-0.2) K/uL Immature Gran # (Auto) 0.03 H (0.00-0.02) K/uL Sodium (136-145) mmol/L Potassium (3.5-5.1) mmol/L Chloride (98-107) mmol/L Carbon Dioxide (21-32) mmol/L Anion Gap (3-11) BUN (7-18) mg/dl Creatinine (0.6-1.4) mg/dl Est Cr Clr Drug Dosing ml/min Est GFR ( Amer) ml/min Est GFR (Non-Af Amer) ml/min BUN/Creatinine Ratio (10-20) Glucose (70-99) mg/dl Calcium (8.5-10.1) mg/dl Magnesium (1.8-2.4) mg/dl Total Bilirubin (0.2-1) mg/dl AST (15-37) U/L ALT (12-78) U/L Alkaline Phosphatase (45-117) U/L Troponin I (0-0.045) ng/ml NT-Pro-B Natriuret Pep (0-900) pg/ml Total Protein (6.4-8.2) gm/dl Albumin (3.4-5.0) gm/dl Globulin (2.5-4.0) gm/dl Albumin/Globulin Ratio (0.9-2) Procalcitonin (0-0.5) ng/ml TSH (0.300-4.500) uIu/ml Lyme Disease IgG Ab (Negative) Lyme Disease IgM Ab (Negative) COVID-19 Eval Order Covid19 at [facility] SARS-CoV-2 (PCR) NEGATIVE (Negative) 12/25/20 12/25/20 12/25/20 Range/Units 20:05 20:05 20:05 WBC (4.8-10.8) K/uL RBC (4.7-6.1) M/uL Hgb (14.0-18.0) g/dL Hct (42-52) % MCV (80-100) fL MCH (25-34) pg MCHC (32-36) g/dL RDW Std Deviation (36.4-46.3) fL RDW Coeff of Nevaeh (11.5-14.5) % Plt Count (130-400) K/uL MPV (7.4-10.4) fL Immature Gran % (Auto) % Neut % (Auto) % Lymph % (Auto) % [place] % (Auto) % Eos % (Auto) % Baso % (Auto) % Neut # (Auto) (1.4-6.5) K/uL Lymph # (Auto) (1.2-3.4) K/uL [place] # (Auto) (0.11-0.59) K/uL Eos # (Auto) (0-0.5) K/uL Baso # (Auto) (0-0.2) K/uL Immature Gran # (Auto) (0.00-0.02) K/uL Sodium 132 L (136-145) mmol/L Potassium 4.0 (3.5-5.1) mmol/L Chloride 100 (98-107) mmol/L Carbon Dioxide 26 (21-32) mmol/L Anion Gap 6.0 (3-11) BUN 17 (7-18) mg/dl Creatinine 1.04 (0.6-1.4) mg/dl Est Cr Clr Drug Dosing 72.7 ml/min Est GFR ( Amer) 81.6 ml/min Est GFR (Non-Af Amer) 70.4 ml/min BUN/Creatinine Ratio 16.7 (10-20) Glucose 123 H (70-99) mg/dl Calcium 7.8 L (8.5-10.1) mg/dl Magnesium 2.0 (1.8-2.4) mg/dl Total Bilirubin 1.3 H (0.2-1) mg/dl AST 31 (15-37) U/L ALT 33 (12-78) U/L Alkaline Phosphatase 58 (45-117) U/L Troponin I 0.064 H* (0-0.045) ng/ml NT-Pro-B Natriuret Pep 923 H (0-900) pg/ml Total Protein 7.6 (6.4-8.2) gm/dl Albumin 3.8 (3.4-5.0) gm/dl Globulin 3.8 (2.5-4.0) gm/dl Albumin/Globulin Ratio 1.0 (0.9-2) Procalcitonin 0.10 (0-0.5) ng/ml TSH 0.419 (0.300-4.500) uIu/ml Lyme Disease IgG Ab Negative (Negative) Lyme Disease IgM Ab Negative (Negative) COVID-19 Eval Order SARS-CoV-2 (PCR) (Negative) Imaging Data Radiologist's Impression: Chest X-Ray 12/25/20 19:28 XR chest 1V portable CLINICAL HISTORY: sob, cough COMPARISON STUDY: Chest radiograph March 08, 2014. November 28, 2014. FINDINGS: Lung volumes are normal. There is no pneumothorax or pleural effusion. A 9 mm nodule within the left upper lobe is unchanged since radiographs of August 26, 2009 and is therefore likely benign. Note is made of cardiomegaly. Mild lower lung interstitial thickening. IMPRESSION: Cardiomegaly. Mild lower lung interstitial thickening. This could reflect atelectasis. Pulmonary vascular congestion or an infectious process could appear similar. ACT 112: Negative or not required by law. Electronically signed by: Nathaniel Hernandez M.D. 12/25/2020 7:56 PM ECG Data Attestation: I personally reviewed and interpreted this ECG as follows: Indication: + SOB/dyspnea Rate (beats per minute): 76 Rhythm: + normal sinus ECG Intervals/blocks: + Normal QRS and + Normal QT ECG [place]: + Normal ECG ST segments: + Nonspecific ST abnormalities MDM Narrative This is a 75-year-old male who presents due to concern for persistent sore throat and other URI type symptoms. Patient has been dyspneic on exertion and when he checked his home oxygen level he found his pulse ox in the 80s and presented to the emergency room for additional evaluation. Patient was swabbed for strep and coronavirus as an outpatient. Covid test done here in edition other labs and imaging as impression given patient's age and risk factors. Patient found to have an elevated troponin. Unclear if related to demand ischemia from infection versus due to evolving pericarditis/myocarditis. Patient does have cardiac history and does follow with cardiology. Patient does have risk factors for coronary artery disease. Patient is anticoagulated at this time due to history of atrial fibrillation. Patient does feel more comfortable on oxygen although he was only in the low 90s on room air at rest. An ambulatory trial was not performed while in the emergency room. Patient den ies any accompanying chest pain. Discussed all results at bedside and need for additional evaluation, he verbalized understanding. Case discussed with hospitalist. An order was placed for continuous cardiac monitoring. The monitor shows a rate of 74_ with _normal sinus_ rhythm. Impression & Plan Pharyngitis, Elevated troponin, Dyspnea Discharge Plan Visit Data Chief Complaint: Sore Throat Stated Complaint: SEVERE SORE THROAT, OXYGEN LEVEL UNDER 80 ED Provider: Veronica Ellis Discharge Problem: Pharyngitis, Elevated troponin, Dyspnea Patient Disposition: Admitted As Inpatient Discharge Instructions Interventions: ED Discharge Assessment Last Done: 12/26/20 00:17 Discharge Problem: Pharyngitis Qualifiers: Pharyngitis/tonsillitis etiology: unspecified etiology Qualified Code(s): J02.9 - Acute pharyngitis, unspecified Dyspnea Qualifiers: Dyspnea type: dyspnea on exertion Qualified Code(s): R06.00 - Dyspnea, unspecified
--- NOTE | 2020-12-25 19:57 | XRay Report ---
XR chest 1V portable CLINICAL HISTORY: sob, cough COMPARISON STUDY: Chest radiograph March 08, 2014. November 28, 2014. FINDINGS: Lung volumes are normal. There is no pneumothorax or pleural effusion. A 9 mm nodule within the left upper lobe is unchanged since radiographs of August 26, 2009 and is therefore likely benign. Note is made of cardiomegaly. Mild lower lung interstitial thickening. IMPRESSION: Cardiomegaly. Mild lower lung interstitial thickening. This could reflect atelectasis. Pulmonary vasc ular congestion or an infectious process could appear similar. ACT 112: Negative or not required by law. Electronically signed by: Nathaniel Hernandez M.D. 12/25/2020 7:56 PM
[2020-12-25 20:39] LABS: Basophils # (auto) 0.01 K/uL (0-0.2); Basophils % (auto) 0.1 %; Hematocrit (blood only) 46.8 % (42-52); Hemoglobin 15.9 g/dL (14.0-18.0); Immature Granulocytes # (auto) 0.03 K/uL (0.00-0.02); Immature Granulocytes % (auto) 0.3 %; Lymphocytes # (auto) 1.28 K/uL (1.2-3.4); Lymphocytes % (auto) 14.3 %; Mean Corpuscular Hemoglobin 30.9 pg (25-34); Mean Corpuscular Volume 91.1 fL (80-100); Mean Platelet Volume 10.4 fL (7.4-10.4); Monocytes # (auto) 1.22 K/uL (0.11-0.59); Monocytes % (auto) 13.6 %; Neutrophils # (auto) 6.44 K/uL (1.4-6.5); Neutrophils % (auto) 71.7 %; Platelet Count 110 K/uL (130-400); RDW Coefficient of Variation 14.4 % (11.5-14.5); Red Blood Count 5.14 M/uL (4.7-6.1); White Blood Count 8.98 K/uL (4.8-10.8)
[2020-12-25 21:13] LABS: Albumin Level 3.8 gm/dl (3.4-5.0); BUN Creatinine Ratio 16.7 (10-20); Calcium 7.8 mg/dl (8.5-10.1); Creatinine Clr Calc Pharmacy 72.7 ml/min; Est GFR (African American) 81.6 ml/min; Est GFR (Non-African American) 70.4 ml/min
[2020-12-25 21:36] LABS: Bilirubin,Total 1.3 mg/dl (0.2-1); Globulin 3.8 gm/dl (2.5-4.0); Thyroid Stimulating Hormone 0.419 uIu/ml (0.300-4.500); Total Protein 7.6 gm/dl (6.4-8.2); Troponin I 0.064 ng/ml (0-0.045)
[2020-12-25 23:19] LABS: Lyme Ab IgG w/WB Rflx Negative (Negative)
[2020-12-25 23:20] LABS: Lyme Ab IgM w/WB Rflx Negative (Negative)
[2020-12-25] MEDS ORDERED: AMPICILLIN/SULBACTAM SOD 3,000 MG in 0.9 % SODIUM CHLORIDE 100 ML IV SCH (23:45)
--- NOTE | 2020-12-25 23:55 | History & Physical Report ---
Date of Service December 25, 2020 Assessment & Plan (1) Community acquired pneumonia: Plan: Varun Fraser is a 75 yo male with a PMHx of atrial fibrillation on chronic anticoagulation, solitary pulmonary nodule, YOU on BiPap, HTN, hyperlipidemia, CAD, cardiomyopathy, BPH, and gout admitted on 12/25/20 with concerns of community acquired pneumonia. Community Acquired Pneumonia - CXR 12/25 with "Cardiomegaly. Mild lower lung interstitial thickening. This could reflect atelectasis. Pulmonary vascular congestion or an infectious process could appear similar." - On exam, rhonci noted to RLL. Due to imaging and PE findings, concern for infections process (e.g. CAP). - COVID negative 12/25. Fully vaccinated for COVID. - No known risk factors for MRSA. Will start patient on Unasyn 3g IV q6h and Azithromycin 500mg IV daily - Check procalcitonin level - Continue supplemental oxygen prn to maintain O2 sat > 94% - CBC qAM Secondary troponin level - Suspect secondary to lung process as noted above - Trend troponin q6h until peak - Echo ordered; last echo May 2019 -- at that time, mild concentric LVH with normal LVEF of 55-60% - Lyme test is pending Paroxysmal atrial fibrillation - Will monitor on tele during admission - Continue home regimen of anticoagulation with Xarelto 20mg po daily - Continue home metoprolol succinate 50mg po daily Hypertension - Continue home regimen with lisinopril 2.5mg po daily Hyperlipidemia - Continue home regimen with atorvastatin 80mg po daily and ezetimibe 10mg po daily YOU - Continue BiPap nightly BPH - Continue home finasteride 5mg po daily FENGI: Regular diet VTE Ppx: Home Xarelto regimen Dispo: med surge w/ tele Code status: Full code (2) Elevated troponin: (3) Paroxysmal atrial fibrillation: (4) Hypertension: (5) Hyperlipidemia: (6) Obstructive sleep apnea: History of Present Illness Primary Care Provider: Raimundo Carson MD Varun Fraser is a 75 yo male with a PMHx of atrial fibrillation on chronic an ticoagulation, solitary pulmonary nodule, YOU on BiPap, HTN, hyperlipidemia, CAD, cardiomyopathy, BPH, and gout who presented to the ED at [facility] with concern of cough. Patient states that 2 days ago, he had a gradual onset of head congestion and generalized fatigue. Yesterday, he developed a cough with yellow sputum production. Associated symptoms include sore throat, fevers, chills, and malaise. Patient denies a hx of asthma or COPD. Denies ELKINS, SOB, or orthopnea. Notes that he checks his pulse and pulse ox daily; typically O2 saturation 98- 99%. Last night, noted O2 sat to be in low 90s and today O2 sat as low as 88%. He does have a hx of afib and CHF 7-8 years ago; last echo in May 2019 showed LVEF of 55-60%. Patient reports compliance with his bipap nightly and even uses the machine during the day if he were to take a long nap. Patient denies ear pain, SALGUERO, lightheadedness, dizziness, leg pain, leg swelling, abd pain, nausea, vomiting, diarrhea, or constipation. Patient called his PCP office and had telephone visit with them today; he was sent to lab for COVID testing and strep testing, however, due to worsening symptoms he came to the ED. Patient notes that he is fully vaccinated against COVID. While in the ED, lab work including CBC and CMP were generally wnl. Troponin slightly elevated at 0.064. BNP slightly elevated at 923. TSH wnl. COVID negative. Group A strep negative. On CXR, "Mild lower lung interstitial thickening. This could reflect atelectasis. Pulmonary vascular congestion or an infectious process could appear similar." Vitals include febrile at 38 C and O2 sat in low 90s on 1.5 L O2 NC. Allergies Allergy/AdvReac Type Severity Reaction Status Date / Time No Known Allergies Allergy Verified 12/25/20 20:50 Home Medications Medication Instructions Recorded Confirmed Type cholecalciferol (vitamin D3) 50 2,000 units PO DAILY cap 02/13/19 12/25/20 History mcg (2,000 unit) capsule rivaroxaban 20 mg tablet 20 mg PO DAILY #90 tab 01/09/20 12/25/20 Rx lisinopril 2.5 mg tablet 2.5 mg PO DAILY #90 tab 02/29/20 12/25/20 Rx finasteride 5 mg tablet 5 mg PO DAILY #90 tab 03/11/20 12/25/20 Rx atorvastatin 80 mg tablet 80 mg PO QPM #90 tab 03/20/20 12/25/20 Rx ezetimibe 10 mg tablet (Zetia) 10 mg PO DAILY #90 tab 03/24/20 12/25/20 Rx metoprolol succinate 50 mg 50 mg PO DAILY #90 tab 08/04/20 12/25/20 Rx tablet,extended release 24 hr Past Med/Surg History Medical History (Updated 12/25/20 @ 23:46 by Babs Cherry DO) Atrial fibrillation Pulmonary vein isolation 01/2014 Trial of dofetilide with QT prolongation necessitating discontinuation Repeat pulmonary vein isolation with atrial tachycardia originating from the left inferior pulmonary vein and caval tricuspid isthmus ablation 04/2014 Repeat pulmonary vein isolation, caval tricuspid isthmus ablation and lateral mitral linear ablation as well as isolation of the posterior wall 11/2015 Amiodarone for recurrent atrial flutter with cardioversion 10/2017 Pulmonary vein isolation and ablation of left atrial roof dependent flutter 06/2018 Atrial flutter 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 Cardiomyopathy Community acquired pneumonia Coronary artery disease Catheterization 2013, occluded left circumflex after OM 1, 50-60% lad lesion, diffuse right coronary disease Gout, joint Tubular adenoma of colon Surgical History History of Achilles tendon repair History of arthroscopy of knee History of colonoscopy History of heart surgery History of rotator cuff surgery History of transurethral resection of prostate Family History Father , Age 89 Cardiac disorder Stroke Myocardial infarction Mother Cardiac disorder Hypertension Cancer Other Diabetes Heart disease No family history of bleeding disorder Denies family history of Ovarian cancer Prostate cancer Breast cancer Colorectal cancer Social History Smoking Status: Former smoker Tobacco Type: Cigarettes Age Started Using Tobacco: 21; Age Quit Using Tobacco: 40; Smoking End Date: 40 years ago; Second Hand Exposure: No; Hx Alcohol Use: Yes Alcohol type: beer and wine Alcohol Intake Frequency: 2-3 x/Week Hx Substance Use: No Preferred Language: Sinhala Communication Ability: Effective Visual Impairment: Limited Hearing Ability: Use of Hearing Aid Finished Cigar Maker Required: No Beliefs That Will Affect Care: None marital status: Current Living Situation: Spouse current occupational status: retired How many Children do You have: 4 Feels Safe at Home: Yes Safety Concerns: Feels Safe At This Time Childhood Exposure to Second-Hand Smoke: No caffeine: Yes (coffee) Dental Care, Regularly: Yes Physical Activity Frequency: 1-2 Times per Week Seatbelt Use: always Sunscreen Use: Yes Assistive Devices: BiPap Review of Systems Review of Systems: See HPI Physical Exam Physical Exam: GENERAL: No acute distress. Well developed and well nourished. Vital signs reviewed as above. A/O x3. EYES: PERRLA. EOMI. Anicteric sclerae. HENT: Moist mucous membranes. No pharyngeal erythema or exudates. No cervical lymphadenopathy. RESPIRATORY: Coarse breath sounds bilaterally. + rhonci in right lower lobe. CARDIOVASCULAR: Irregularly irregular rhythm. Normal rate. No murmurs. 2+ pedal pulses bilaterally. ABDOMEN: Soft, non-tender and non-distended. No palpable masses. Normal bowel sounds. EXTREMITIES: No edema. Non-tender. SKIN: Warm, dry. No rashes or lesions. NEUROLOGIC: No focal neurological deficits. CN II-XII grossly intact. PSYCHIATRIC: Cooperative. Appropriate mood and affect. Results & Data Results & Data ([facility]) Vital Signs (Past 12 Hours) Vital Signs Temp Pulse Pulse Resp BP BP Pulse Ox 12/25/20 22:39 37.1 C 12/25/20 22:30 76 22 136/70 94 12/25/20 22:00 83 19 132/75 94 12/25/20 21:30 82 24 143/83 H 91 12/25/20 21:04 77 22 136/78 92 12/25/20 20:05 92 H 18 178/89 H 94 12/25/20 20:02 80 20 178/89 H 92 12/25/20 19:08 38 C H 84 18 157/84 H 93 Laboratory Results 12/25/20 12/25/20 12/25/20 Range/Units 20:05 20:05 20:05 WBC 8.98 (4.8-10.8) K/uL RBC 5.14 (4.7-6.1) M/uL Hgb 15.9 (14.0-18.0) g/dL Hct 46.8 (42-52) % MCV 91.1 (80-100) fL MCH 30.9 (25-34) pg MCHC 34.0 (32-36) g/dL RDW Std Deviation 49.0 H (36.4-46.3) fL RDW Coeff of Nevaeh 14.4 (11.5-14.5) % Plt Count 110 L (130-400) K/uL MPV 10.4 (7.4-10.4) fL Immature Gran % (Auto) 0.3 % Neut % (Auto) 71.7 % Lymph % (Auto) 14.3 % [place] % (Auto) 13.6 % Eos % (Auto) 0.0 % Baso % (Auto) 0.1 % Neut # (Auto) 6.44 (1.4-6.5) K/uL Lymph # (Auto) 1.28 (1.2-3.4) K/uL [place] # (Auto) 1.22 H (0.11-0.59) K/uL Eos # (Auto) 0.00 (0-0.5) K/uL Baso # (Auto) 0.01 (0-0.2) K/uL Immature Gran # (Auto) 0.03 H (0.00-0.02) K/uL Sodium 132 L (136-145) mmol/L Potassium 4.0 (3.5-5.1) mmol/L Chloride 100 (98-107) mmol/L Carbon Dioxide 26 (21-32) mmol/L Anion Gap 6.0 (3-11) BUN 17 (7-18) mg/dl Creatinine 1.04 (0.6-1.4) mg/dl Est Cr Clr Drug Dosing 72.7 ml/min Est GFR ( Amer) 81.6 ml/min Est GFR (Non-Af Amer) 70.4 ml/min BUN/Creatinine Ratio 16.7 (10-20) Glucose 123 H (70-99) mg/dl Calcium 7.8 L (8.5-10.1) mg/dl Magnesium 2.0 (1.8-2.4) mg/dl Total Bilirubin 1.3 H (0.2-1) mg/dl AST 31 (15-37) U/L ALT 33 (12-78) U/L Alkaline Phosphatase 58 (45-117) U/L Troponin I 0.064 H* (0-0.045) ng/ml NT-Pro-B Natriuret Pep 923 H (0-900) pg/ml Total Protein 7.6 (6.4-8.2) gm/dl Albumin 3.8 (3.4-5.0) gm/dl Globulin 3.8 (2.5-4.0) gm/dl Albumin/Globulin Ratio 1.0 (0.9-2) TSH 0.419 (0.300-4.500) uIu/ml Lyme Disease IgG Ab Negative (Negative) Lyme Disease IgM Ab Negative (Negative) COVID-19 Eval Order SARS-CoV-2 (PCR) (Negative) 12/25/20 12/25/20 Range/Units 19:54 19:54 WBC (4.8-10.8) K/uL RBC (4.7-6.1) M/uL Hgb (14.0-18.0) g/dL Hct (42-52) % MCV (80-100) fL MCH (25-34) pg MCHC (32-36) g/dL RDW Std Deviation (36.4-46.3) fL RDW Coeff of Nevaeh (11.5-14.5) % Plt Count (130-400) K/uL MPV (7.4-10.4) fL Immature Gran % (Auto) % Neut % (Auto) % Lymph % (Auto) % [place] % (Auto) % Eos % (Auto) % Baso % (Auto) % Neut # (Auto) (1.4-6.5) K/uL Lymph # (Auto) (1.2-3.4) K/uL [place] # (Auto) (0.11-0.59) K/uL Eos # (Auto) (0-0.5) K/uL Baso # (Auto) (0-0.2) K/uL Immature Gran # (Auto) (0.00-0.02) K/uL Sodium (136-145) mmol/L Potassium (3.5-5.1) mmol/L Chloride (98-107) mmol/L Carbon Dioxide (21-32) mmol/L Anion Gap (3-11) BUN (7-18) mg/dl Creatinine (0.6-1.4) mg/dl Est Cr Clr Drug Dosing ml/min Est GFR ( Amer) ml/min Est GFR (Non-Af Amer) ml/min BUN/Creatinine Ratio (10-20) Glucose (70-99) mg/dl Calcium (8.5-10.1) mg/dl Magnesium (1.8-2.4) mg/dl Total Bilirubin (0.2-1) mg/dl AST (15-37) U/L ALT (12-78) U/L Alkaline Phosphatase (45-117) U/L Troponin I (0-0.045) ng/ml NT-Pro-B Natriuret Pep (0-900) pg/ml Total Protein (6.4-8.2) gm/dl Albumin (3.4-5.0) gm/dl Globulin (2.5-4.0) gm/dl Albumin/Globulin Ratio (0.9-2) TSH (0.300-4.500) uIu/ml Lyme Disease IgG Ab (Negative) Lyme Disease IgM Ab (Negative) COVID-19 Eval Order Covid19 at [facility] SARS-CoV-2 (PCR) NEGATIVE (Negative) Diagnostic Findings XR chest 1V portable CLINICAL HISTORY: sob, cough COMPARISON STUDY: Chest radiograph March 08, 2014. November 28, 2014. FINDINGS: Lung volumes are normal. There is no pneumothorax or pleural effusion. A 9 mm nodule within the left upper lobe is unchanged since radiographs of August 26, 2009 and is therefore likely benign. Note is made of cardiomegaly. Mild lower lung interstitial thickening. IMPRESSION: Cardiomegaly. Mild lower lung interstitial thickening. This could reflect atelectasis. Pulmonary vascular congestion or an infectious process could appear similar. ACT 112: Negative or not required by law. Electronically signed by: Nathaniel Hernandez M.D. 12/25/2020 7:56 PM ECG Additional Comments: NSR, rate of 75 bpm, flattened T waves in inferior and lateral leads, no ST elevation Supervising Physician Co-Signing Physician Notes Attending addendum: I have physically seen this patient, have supervised the medical residents activities, and agree with the H&P unless as otherwise noted. Assessment and Plan: Pneumonia- Unasyn 3 g IV every 6 hours Azithromycin 5 mg IV daily Duonebs every 4 hours while awake and every 2 hours when necessary. Nasal cannula oxygen, titrate to keep pulse ox 94-95% Elevated troponin/paroxysmal atrial fibrillation/hypertension- The patient will be admitted to telemetry for serial cardiac enzymes, serial EKG's, cardiac rhythm monitoring and a 2-D echocardiogram with Dopplers. Troponin 0.064, is likely secondary to type II SD, supply demand mismatch Continue lisinopril, metoprolol succinate and Xarelto Hyperlipidemia- Continue atorvastatin 80 mg daily and Zetia 10 mg daily Check a fasting lipid panel Remaining orders and notations as noted Resident Activity Tracking Resident Involvement: Resident Care Provided Care Provided: Adult Hospital Medicine
[2020-12-26] MEDS ORDERED: POLYETHYLENE (MIRALAX) 17 GM PACK PO PRN (00:49)
[2020-12-26] MEDS ORDERED: MAGNESIUM HYDROXIDE SUSP 30 ML UDC PO PRN (00:49)
[2020-12-26] MEDS: AMPICILLIN/SULBACTAM SOD 3,000 MG in 0.9 % SODIUM CHLORIDE 100 ML IV SCH ×4 (01:25→19:32)
[2020-12-26] MEDS: AZITHROMYCIN 500 MG in DEXTROSE 5% 250 ML IV SCH (02:03)
[2020-12-26 02:04] LABS: Hematocrit (blood only) 43.6 % (42-52); Hemoglobin 14.9 g/dL (14.0-18.0); Immature Granulocytes # (auto) 0.02 K/uL (0.00-0.02); Immature Granulocytes % (auto) 0.2 %; Lymphocytes # (auto) 1.39 K/uL (1.2-3.4); Mean Corpuscular Hemoglobin 30.9 pg (25-34); Mean Corpuscular Hgb Conc 34.2 g/dL (32-36); Mean Corpuscular Volume 90.5 fL (80-100); Mean Platelet Volume 10.8 fL (7.4-10.4); Monocytes # (auto) 1.17 K/uL (0.11-0.59); Monocytes % (auto) 12.6 %; Neutrophils # (auto) 6.69 K/uL (1.4-6.5); Neutrophils % (auto) 72.2 %; Platelet Count 107 K/uL (130-400); RDW Coefficient of Variation 14.5 % (11.5-14.5); RDW Standard Deviation 48.5 fL (36.4-46.3); Red Blood Count 4.82 M/uL (4.7-6.1); White Blood Count 9.27 K/uL (4.8-10.8)
[2020-12-26 02:21] LABS: Albumin Level 3.4 gm/dl (3.4-5.0); BUN Creatinine Ratio 15.7 (10-20); Calcium 8.1 mg/dl (8.5-10.1); Creatinine Clr Calc Pharmacy 80.3 ml/min; Est GFR (African American) 92.2 ml/min; Est GFR (Non-African American) 79.6 ml/min; Potassium 3.7 mmol/L (3.5-5.1)
[2020-12-26 02:30] LABS: Bilirubin,Total 1.2 mg/dl (0.2-1); Globulin 3.4 gm/dl (2.5-4.0); Total Protein 6.8 gm/dl (6.4-8.2); Troponin I 0.083 ng/ml (0-0.045)
--- NOTE | 2020-12-26 08:17 | XCELERA ---
[id number]
[2020-12-26] MEDS: METOPROLOL SUCC 50MG EXT REL TAB PO SCH (08:24)
[2020-12-26] MEDS: EZETIMIBE 10 MG TABLET PO SCH (08:24)
[2020-12-26] MEDS: RIVAROXABAN 20 MG TAB PO SCH (08:24)
[2020-12-26] MEDS: FINASTERIDE 5 MG TAB PO SCH (08:24)
[2020-12-26] MEDS: lisinopril 2.5 MG TAB PO SCH (08:25)
[2020-12-26] MEDS: CHOLECALCIFEROL 1,000 UNITS 25 MCG TAB PO SCH (08:25)
[2020-12-26] MEDS: ACETAMINOPHEN 325 MG TAB PO PRN ×2 (08:52→19:32)
--- NOTE | 2020-12-26 09:40 | Electrocardiogram Report ---
Test Reason : Blood Pressure : / mmHG Vent. Rate : 078 BPM Atrial Rate : 078 BPM P-R Int : 160 ms QRS Dur : 092 ms QT Int : 378 ms P-R-T Axes : 080 -17 135 degrees QTc Int : 430 ms Normal sinus rhythm Diffuse Minor Nonspecific ST and T wave abnormality Abnormal ECG When compared with ECG of 21-OCT-2017 07:46, Vent. rate has increased BY 33 BPM Otherwise no significant change Confirmed by Henrik Herring ([id number]) on 12/26/2020 9:40:32 AM Referred By: REFERRED SELF Confirmed By:Henrik Herring
--- NOTE | 2020-12-26 09:54 | Electrocardiogram Report ---
Test Reason : Blood Pressure : / mmHG Vent. Rate : 076 BPM Atrial Rate : 076 BPM P-R Int : 138 ms QRS Dur : 094 ms QT Int : 384 ms P-R-T Axes : 075 -04 108 degrees QTc Int : 432 ms Normal sinus rhythm Diffuse Minor Nonspecific ST and T wave abnormality Abnormal ECG When compared with ECG of 25-DEC-2020 20:02, No significant change was found Confirmed by Henrik Herring ([id number]) on 12/26/2020 9:54:39 AM Referred By: REFERRED SELF Confirmed By:Henrik Herring
--- NOTE | 2020-12-26 16:54 | Hospitalist Progress Note ---
Date of Service December 26, 2020 Assessment & Plan (1) Community acquired pneumonia: Plan: Presumed cause of his infectious symptoms, though CXR was fairly equivocal for a pneumonia and procalcitonin was negative. - Continue Unasyn & azithromycin - Lyme negative and anaplasmosis smear negative. - Follow blood cultures drawn on 12/26; none done prior to starting abx. - Will get anaplasma PCR on 12/27 with AM labs - Tbili slightly elevated; will get RUQ u/s (2) Elevated troponin: Plan: Demand ischemia from illness. No change in troponins over 3 draws. - Monitor (3) Paroxysmal atrial flutter: Plan: S/p multiple ablations and procedures at [facility]. Presently no longer going into atrial fib or flutter. - Continue metoprolol 50 mg QAM - Continue rivaroxaban (4) Coronary artery disease, occlusive: Plan: Prior MIs and PCIs. - Continue home beta-omer as above, continue statin & ACEi (5) Cardiomyopathy: Plan: EF in our hospital was 50 - 55% which is mildly improved from prior at [facility] that was 45 - 50% in 09/2018. - Continue above meds (6) Hypertension: Plan: BP today is 120/75. - As above (7) Obstructive sleep apnea: Plan: Able to bring in home device. (8) BPH with obstruction/lower urinary tract symptoms: Plan: No present symptoms. - Continue finasteride Admission and Anticipated Discharge Date Admission Date: December 25, 2020 Subjective Not feeling much better this morning when I saw him. [place] feverish and fatigued from a tough night where he didn't get much sleep. Reports no chest pain, shortness of breath, abdominal pain, nausea, or vomiting. Physical Exam Constitutional: WD/WN, vitals as above Eyes: EOM intact bilaterally; no conjunctival abnormality ENMT: external ear and nose normal, oropharynx normal Neck: trachea midline, no thyromegaly normal visual inspection Respiratory: normal respiratory effort, lungs clear to auscultation no respiratory distress Cardiovascular: RRR, no murmur, no edema Gastrointestinal (Abdomen): Inspection/Auscultation: abdomen normal to inspection; abdomen not distended Musculoskeletal: no cyanosis or clubbing, extremities motor strength 5/5 Skin: no rashes, warm and dry Neurologic: moves all extremities and awake Psychiatric: Orientation: alert, oriented to person and cooperative Results & Data Results & Data ([place]) Vital Signs (Past 12 Hours) Vital Signs Temp Pulse Pulse Resp BP Pulse Ox 12/26/20 15:43 36.8 C 72 20 121/76 94 12/26/20 11:28 36.8 C 71 20 125/75 92 12/26/20 09:30 36.9 C 12/26/20 07:23 39.1 C H 80 16 138/84 94 12/26/20 06:20 79 PG Care Time/CCT Total # of Minutes Spent Total Time Spent with Patient: Total time spent is greater than 50% in coordination of care (as documented) at patient's floor/unit and/or counseling patient: Coding Level of Care Code 41974 Subseq Hosp Care Lvl 3 Diagnoses Community acquired pneumonia J18.9 Elevated troponin R77.8 Paroxysmal atrial flutter I48.92 Coronary artery disease, occlusive I25.10 Cardiomyopathy I42.9 Hypertension I10 Obstructive sleep apnea G47.33 BPH with obstruction/lower urinary tract symptoms N40.1; N13.8
--- NOTE | 2020-12-26 18:44 | CT Scan Report ---
CT chest diagnostic wo con CT DOSE: 775.43 mGy.cm CLINICAL HISTORY: 75 years-old Male with Fever, cough, sputum. Acute cough with fever TECHNIQUE: Multiaxial CT images of the chest were performed without contrast. A dose lowering techni que was utilized adhering to the principles of ALARA. COMPARISON: Chest radiograph 12/25/2020 FINDINGS: Mild heterogeneous thyroid. Mildly enlarged right hilar lymph nodes measure up to 11 mm. Pr ominent nonenlarged likely reactive mediastinal lymph nodes with mild adjacent inflammatory stranding . Heart is upper limits of normal in size. No pericardial effusion. Extensive coronary artery calcifi cations. No thoracic aortic aneurysm. Calcified granuloma of the left upper lobe. No pneumothorax, pleural effusion or overt pulmonary yoselin a. Patchy bilateral reticular nodular opacities with right greater than left bibasilar predominate co nsolidation. Mild right lung base mucous plugging. No pneumatosis or pneumoperitoneum. No acute process of the imaged upper abdomen. Mild gynecomastia. Nonspecific generalized body wall edema. Mild nonspecific mid and distal esophageal wall thickening. Degenerative changes of the shoulders and spine. IMPRESSION: 1. Right greater than left bilateral pulmonary opacities as above suggestive of multifocal pneumonia. 2. Mild mucous plugging of the right lung base. 3. Mild mediastinal and right hilar adenopathy, likely reactive. ACT 112: Negative or not required by law. Electronically signed by: Rigoberto Castillo M.D. 12/26/2020 6:43 PM
--- NOTE | 2020-12-26 20:31 | Billing Data ---
Date of Service December 26, 2020 Coding Level of Care Code 44032 Initial Inpt Care Lvl 3
[2020-12-26] MEDS ORDERED: ATORVASTATIN 40 MG TAB PO SCH (21:00)
[2020-12-27] MEDS: AMPICILLIN/SULBACTAM SOD 3,000 MG in 0.9 % SODIUM CHLORIDE 100 ML IV SCH ×2 (02:23→08:01)
[2020-12-27] MEDS: AZITHROMYCIN 500 MG in DEXTROSE 5% 250 ML IV SCH (02:23)
[2020-12-27] MEDS: RIVAROXABAN 20 MG TAB PO SCH (08:02)
[2020-12-27] MEDS: FINASTERIDE 5 MG TAB PO SCH (08:02)
[2020-12-27] MEDS: EZETIMIBE 10 MG TABLET PO SCH (08:02)
[2020-12-27] MEDS: METOPROLOL SUCC 50MG EXT REL TAB PO SCH (08:02)
[2020-12-27] MEDS: lisinopril 2.5 MG TAB PO SCH (08:02)
[2020-12-27] MEDS: CHOLECALCIFEROL 1,000 UNITS 25 MCG TAB PO SCH (08:02)
[2020-12-27 08:08] LABS: Hematocrit (blood only) 42.8 % (42-52); Hemoglobin 14.5 g/dL (14.0-18.0); Mean Corpuscular Hemoglobin 30.6 pg (25-34); Mean Corpuscular Hgb Conc 33.9 g/dL (32-36); Mean Corpuscular Volume 90.3 fL (80-100); Mean Platelet Volume 10.5 fL (7.4-10.4); Platelet Count 110 K/uL (130-400); RDW Coefficient of Variation 14.2 % (11.5-14.5); RDW Standard Deviation 47.5 fL (36.4-46.3); Red Blood Count 4.74 M/uL (4.7-6.1)
--- NOTE | 2020-12-27 08:20 | Hospitalist Progress Note ---
Date of Service December 27, 2020 Assessment & Plan (1) Community acquired pneumonia: Plan: Varun Fraser is a 75 yo male with a PMHx of atrial fibrillation on chronic anticoagulation, solitary pulmonary nodule, YOU on BiPap, HTN, hyperlipidemia, CAD, cardiomyopathy, BPH, and gout admitted on 12/25/20 with concerns of community acquired pneumonia. Community Acquired Pneumonia - CXR 12/25 with "Cardiomegaly. Mild lower lung interstitial thickening. This could reflect atelectasis. Pulmonary vascular congestion or an infectious process could appear similar." - On exam, rhonci noted to RLL. Due to imaging and PE findings, concern for infections process (e.g. CAP). - COVID negative 12/25. Fully vaccinated for COVID. - No known risk factors for MRSA. Will start patient on Unasyn 3g IV q6h and Azithromycin 500mg IV daily -procalcitonon negative, Elevated troponin level - demand ischemia from hypoxia secondary to lung process as noted above - Echo normal EF no comments of RWMA - Lyme test is pending Paroxysmal atrial fibrillation - anticoagulation with Xarelto 20mg po daily -rate contrl with metoprolol succinate 50mg po daily Hypertension - metoprolol and lisinopril 2.5mg po daily Hyperlipidemia - atorvastatin 80mg po daily and ezetimibe 10mg po daily YOU - Continue BiPap nightly BPH - Continue home finasteride 5mg po daily FENGI: Regular diet VTE Ppx: Home Xarelto regimen Dispo: med surge w/ tele Code status: Full code (2) Elevated troponin: (3) Paroxysmal atrial fibrillation: (4) Hypertension: (5) Hyperlipidemia: (6) Obstructive sleep apnea: Admission and Anticipated Discharge Date Admission Date: December 25, 2020 Results & Data Results & Data ([facility]) Vital Signs (Past 12 Hours) Vital Signs Temp Pulse Pulse Resp BP Pulse Ox 12/27/20 07:45 72 12/27/20 07:23 97.7 F 66 18 127/71 92 12/27/20 04:02 99.0 F 68 18 121/75 94 12/26/20 23:47 64 12/26/20 23:00 97.9 F 73 18 116/65 94 PG Care Time/CCT Total # of Minutes Spent Total Time Spent with Patient: Total time spent is greater than 50% in coordination of care (as documented) at patient's floor/unit and/or counseling patient: Coding Diagnoses Community acquired pneumonia J18.9 Elevated troponin R77.8 Paroxysmal atrial fibrillation I48.0 Hypertension I10 Hyperlipidemia E78.5 Obstructive sleep apnea G47.33
[2020-12-27 08:43] LABS: Albumin Level 3.1 gm/dl (3.4-5.0); BUN Creatinine Ratio 21.5 (10-20); Calcium 8.6 mg/dl (8.5-10.1); Creatinine Clr Calc Pharmacy 92.3 ml/min; Est GFR (African American) 101.5 ml/min; Est GFR (Non-African American) 87.6 ml/min; Magnesium 2.2 mg/dl (1.8-2.4); Potassium 3.4 mmol/L (3.5-5.1)
[2020-12-27 08:46] LABS: Albumin Globulin Ratio 0.8 (0.9-2); Bilirubin,Total 1.4 mg/dl (0.2-1); Globulin 3.7 gm/dl (2.5-4.0); Total Protein 6.8 gm/dl (6.4-8.2)
--- NOTE | 2020-12-27 09:04 | Ultrasound Report ---
ULTRASOUND RIGHT UPPER QUADRANT ABDOMEN CLINICAL HISTORY: Elevated hepatic transaminases. COMPARISON STUDY: No priors. TECHNIQUE: Real-time, grayscale, and color flow sonography of the right upper quadrant of the abdomen was performed. Images are reviewed in the transverse and longitudinal planes. FINDINGS: Liver: The liver is heterogeneous in echotexture. The liver is mildly enlarged measuring over 18 cm i n length. There is mild nodularity of the hepatic surface contour. There is no intrahepatic biliary d uctal dilatation. The main portal vein is patent. Gallbladder: The gallbladder is normal in appearance. No gallstones are identified. There is no gallb ladder wall thickening or pericholecystic fluid. A sonographic Ayala's sign is reportedly absent. Th e common bile duct measures up to 0.5 cm in diameter. Pancreas: Visualized portions of the pancreatic head are normal in appearance. The majority of the pa ncreas was not visualized due to overlying bowel gas. Right kidney: Survey images of the right kidney demonstrate normal size and echotexture. There is no hydronephrosis. Ascites: None. IMPRESSION: The appearance of the liver suggests early change of cirrhosis. Clinical correlation will be required. ACT 112: Negative or not required by law. Electronically signed by: Ravi Marin M.D. 12/27/2020 9:03 AM
[2020-12-27] MEDS ORDERED: POTASSIUM CHLORIDE CRTAB 20 MEQ TABCR PO STA (11:24)
--- NOTE | 2020-12-27 16:24 | Discharge Summary ---
Date of Service December 27, 2020 Admission HPI Per Admitting Provider Varun Fraser is a 75 yo male with a PMHx of atrial fibrillation on chronic anticoagulation, solitary pulmonary nodule, YOU on BiPap, HTN, hyperlipidemia, CAD, cardiomyopathy, BPH, and gout who presented to the ED at [facility] with concern of cough. Patient states that 2 days ago, he had a gradual onset of head congestion and generalized fatigue. Yesterday, he developed a cough with yellow sputum production. Associated symptoms include sore throat, fevers, chills, and malaise. Patient denies a hx of asthma or COPD. Denies ELKINS, SOB, or orthopnea. Notes that he checks his pulse and pulse ox daily; typically O2 saturation 98- 99%. Last night, noted O2 sat to be in low 90s and today O2 sat as low as 88%. He does have a hx of afib and CHF 7-8 years ago; last echo in May 2019 showed LVEF of 55-60%. Patient reports compliance with his bipap nightly and even uses the machine during the day if he were to take a long nap. Patient denies ear pain, SALGUERO, lightheadedness, dizziness, leg pain, leg swelling, abd pain, nausea, vomiting, diarrhea, or constipation. Patient called his PCP office and had telephone visit with them today; he was sent to lab for COVID testing and strep testing, however, due to worsening sympt oms he came to the ED. Patient notes that he is fully vaccinated against COVID. While in the ED, lab work including CBC and CMP were generally wnl. Troponin slightly elevated at 0.064. BNP slightly elevated at 923. TSH wnl. COVID negative. Group A strep negative. On CXR, "Mild lower lung interstitial thickening. This could reflect atelectasis. Pulmonary vascular congestion or an infectious process could appear similar." Vitals include febrile at 38 C and O2 sat in low 90s on 1.5 L O2 NC. Principal Diagnosis community acquired pneumonia abnormal CT chest elevated bilirubin Discharge Exam The patient appeared well Vital signs as documented. Lungs are clear to auscultation and appear unlabored Cardiac exam, Rhythm is regular.. No murmurs, rubs or gallops. Abdominal exam reveals normal bowel sounds, soft non tender, no masses Extremities are nonedematous and both pedal pulses are normal. Neurologic exam is alert and oriented, no focal loss of strength or sensation Skin is without bruises or rashes Psychologically is without concerns for anxiety or depression. Discharge Data Allergies Allergy/AdvReac Type Severity Reaction Status Date / Time No Known Allergies Allergy Verified 12/25/20 20:50 Consultations 12/25/20 23:21 ED Decision to Admit Stat Ordered Studies 12/26/20 16:55 US abdomen limited Routine 12/26/20 17:56 CT chest diagnostic wo con Routine Hospital Course (1) Community acquired pneumonia: Varun Fraser is a 75 yo male with a PMHx of atrial fibrillation on chronic anticoagulation, solitary pulmonary nodule, YOU on BiPap, HTN, hyperlipidemia, CAD, cardiomyopathy, BPH, and gout admitted on 12/25/20 with concerns of community acquired pneumonia. Community Acquired Pneumonia - CXR 12/25 with "Cardiomegaly. Mild lower lung interstitial thickening. This could reflect atelectasis. Pulmonary vascular congestion or an infectious process could appear similar." - treated for Community Acquired pneumonia - COVID negative 12/25. Fully vaccinated for COVID. - No known risk factors for MRSA. will be discharged on Cefdinir and azithro, [facility] grinder did review his discharge and is in town to care for father He is noted to have some exertional lower oxygen sats, recommended PFT once recovered and follow up CT chest to review Lymphadenopathy -procalcitonin negative, Elevated troponin level - demand ischemia from hypoxia secondary to lung process as noted above - Echo normal EF no comments of RWMA - Lyme test is pending Paroxysmal atrial fibrillation - anticoagulation with Xarelto 20mg po daily -rate contrl with metoprolol succinate 50mg po daily Hypertension - metoprolol and lisinopril 2.5mg po daily Hyperlipidemia - atorvastatin 80mg po daily and ezetimibe 10mg po daily YOU - Continue BiPap nightly BPH - Continue home finasteride 5mg po daily Elevated Bili U/s shows possible early cirrhosis Code status: Full code (2) Elevated troponin: (3) Paroxysmal atrial fibrillation: (4) Hypertension: (5) Hyperlipidemia: (6) Obstructive sleep apnea: Total Time Total Time Spent Total Time Spent (In Minutes): It required greater than 30 minutes to prepare this patient for discharge Discharge Plan Discharge Items Patient Disposition: Home - Self-Care Reason For Visit: COMMUNITY ACQUIRED PNEUMONIA Discharge Diagnosis: right basilar pneumonia Activity: Resume your previous activity Non-emergency contact: Primary Care Provider Call non-emergency contact if: you have any medication questions and you have a fever Follow-up/Referrals: Raimundo Carson MD [Primary Care Provider] - 01/06/21 3:15 pm Diet: Regular Addtl Attending Provider Instructions: please follow up with Dr Carson and consider having a repeat CT chest complete antibiotics consider taking a probiotic for help to prevent antibiotic associated anesthesia you did have mild elevation of your bilirubin, without other changes in liver function testing, your liver us may suggest some early mild scaring, avoidance of alcohol and limiting tylenol, as above you primary care doctor, Dr Carson may consider surveillance testing in the future. Pending Studies at Discharge: Yes Studies:: sputum culture Stand-Alone Forms: My [facility], Smoking Cessation Medications and DC Order Prescriptions: New cefdinir 300 mg capsule 300 mg PO BID 5 Days Qty: 10 RF: 0 azithromycin 250 mg tablet 250 mg PO DAILY 4 Days Qty: 4 RF: 0 Mucus-ER MAX 1,200 mg tablet extended release 12hr 1,200 mg PO BID Qty: 10 RF: 0 Continued lisinopril 2.5 mg tablet 2.5 mg PO DAILY Qty: 90 RF: 3 atorvastatin 80 mg tablet 80 mg PO QPM Qty: 90 RF: 3 ezetimibe [Zetia] 10 mg tablet 10 mg PO DAILY Qty: 90 RF: 3 metoprolol succinate 50 mg tablet extended release 24 hr 50 mg PO DAILY Qty: 90 RF: 3 rivaroxaban 20 mg tablet 20 mg PO DAILY Qty: 90 RF: 3 cholecalciferol (vitamin D3) 2,000 unit capsule 2,000 units PO DAILY RF: 0 finasteride 5 mg tablet 5 mg PO DAILY Qty: 90 RF: 3 Discharge Orders: Discharge Order (Routine); Ordered 12/27/20 Ordered By: Malcolm Herman Admission Data Admit Date/Time: 12/25/20 23:39 Attending Provider: Malcolm Herman Admit Provider: Babs Cherry Primary Care Provider: Raimundo Carson Other Providers: Omar Hunter Other Interventions: Discharge Summary Assessment (RN) Last Done: 12/27/20 12:12 Coding Level of Care Code D/C DAY MANAGEMENT >30 MINS Diagnoses Community acquired pneumonia J18.9 Elevated troponin R77.8 Paroxysmal atrial fibrillation I48.0 Hypertension I10 Hyperlipidemia E78.5 Obstructive sleep apnea G47.33
== END 2020-12-27 13:30 | disposition home or self-care (01) | DRG 194 ==
LOC: ED 18:42 → SUATTDRO 23:39 → 2N 23:39

== ENCOUNTER 2021-07-27 06:39 | Observation (INO) ==
--- NOTE | 2021-04-03 10:48 | PAT Medication Instructions ---
Medication Instructions Date of Service April 03, 2021 Home Medications Medication Instructions Recorded atorvastatin 80 mg tablet See Rx Instructions .ROUTE 02/03/21 .COMPLEX #90 tab cholecalciferol (vitamin D3) 50 mcg (2,000 unit) capsule 2,000 units PO QAM atorvastatin 80 mg tablet See Rx Instructions ezetimibe 10 mg tablet (Zetia) 10 mg PO QAM finasteride 5 mg tablet 5 mg PO PM lisinopril 2.5 mg tablet 2.5 mg PO QAM metoprolol succinate 50 mg tablet,extended release 24 hr 50 mg PO PM rivaroxaban 20 mg tablet 20 mg PO PM ASK your prescriber and surgeon rivaroxaban 20 mg tablet 20 mg PO PM (must be off Xarelto 72 hours in order to get spinal anesthesia) DO NOT take the morning of surgery cholecalciferol (vitamin D3) 50 mcg (2,000 unit) capsule 2,000 units PO QAM lisinopril 2.5 mg tablet 2.5 mg PO QAM Take morning of surgery With a small sip of water, OTHERWISE NOTHING TO EAT OR DRINK AFTER MIDNIGHT: ezetimibe 10 mg tablet (Zetia) 10 mg PO QAM Take evening before surgery atorvastatin 80 mg tablet See Rx Instructions finasteride 5 mg tablet 5 mg PO PM metoprolol succinate 50 mg tablet,extended release 24 hr 50 mg PO PM Other Notes If you have any questions please call us at [phone] or [phone] or [phone] or [phone]
--- NOTE | 2021-04-08 09:57 | Anesthesiology Consultation ---
Date of Service April 08, 2021 Assessment & Plan (1) Encounter for pre-operative examination: - cardiology office visit 02/24/2021 [place]: "...he appears to be doing quite well...no clinical recurrence of any arrhythmia. Will continue him on systemic anticoagulation. Renal function is normal...coronary artery disease...occlusion of left Cx...non occlusive disease in LAD and diffuse RCA disease. no current symptoms suggestive of coronary insufficiency or angina. He will continue on high-dose atorvastatin, Xarelto, Zetia and metoprolol...cardiomyopathy...preserved LV function overall although comparatively perhaps slightly worse...Will continue on metoprolol and lisinopril." - case discussed with Dr. Valdez who advised that from his standpoint given patient's medical regimen and functional status without cardiopulmonary symptoms, he does not need further cardiac testing or evaluation prior to surgery. Patient can proceed as scheduled. - Outpatient joint assessment: Patient is currently scheduled for inpatient pathway. If re-evaluated pending system levels during current pandemic, patient is NOT acceptable candidate for outpatient joint program from anesthesia standpoint given co-morbidities. - COVID screening: Per assessment on 04/08/2021: Travel screen negative, no known COVID-19 positive contacts or current COVID-19 related symptoms. Patient vaccinated. Surgeon arranging preop COVID testing, scheduled 05/01/2021. Awaiting results. Chart Review Chart Review: Acceptable Risk for Surgery and Patient seen in Pre Admission Testing Consults Requested none Teaching & Discussion Pre-Anesthesia Teaching/Discussion Notes: Instructed NPO after midnight before surgery, except medications with 15 cc of water. Medication instructions provided according to the PAT guidelines. History Surgery Operation Date: 05/05/21 07:00 Proposed Procedures p Left Total Knee Arthroplasty - Stevan Brothers MD Height/Weight Height: 5 ft 8 in Weight: 101.4 kg Allergies Allergy/AdvReac Type Severity Reaction Status Date / Time No Known Allergies Allergy Verified 03/26/21 09:48 Medications Home Medications Medication Instructions Recorded Confirmed Last Taken cholecalciferol (vitamin D3) 50 2,000 units PO QAM cap 02/13/19 03/26/21 Unknown mcg (2,000 unit) capsule atorvastatin 80 mg tablet See Rx Instructions .ROUTE 02/03/21 03/26/21 Unknown .COMPLEX #90 tab ezetimibe 10 mg tablet (Zetia) 10 mg PO QAM 03/26/21 03/26/21 Unknown finasteride 5 mg tablet 5 mg PO PM 03/26/21 03/26/21 Unknown lisinopril 2.5 mg tablet 2.5 mg PO QAM 03/26/21 03/26/21 Unknown metoprolol succinate 50 mg 50 mg PO PM 03/26/21 03/26/21 Unknown tablet,extended release 24 hr rivaroxaban 20 mg tablet 20 mg PO PM #90 tab 04/06/21 Unknown Past Medical History Medical History (Updated 04/08/21 @ 15:18 by Shanon Marsh PA-C) Atrial fibrillation Pulmonary vein isolation 01/2014 Trial of dofetilide with QT prolongation necessitating discontinuation Repeat pulmonary vein isolation with atrial tachycardia originating from the left inferior pulmonary vein and caval tricuspid isthmus ablation 04/2014 Repeat pulmonary vein isolation, caval tricuspid isthmus ablation and lateral mitral linear ablation as well as isolation of the posterior wall 11/2015 Amiodarone for recurrent atrial flutter with cardioversion 10/2017 Pulmonary vein isolation and ablation of left atrial roof dependent flutter 06/2018 Follows with [facility], stable per 01/2021 note Atrial flutter follows with Dr. Leo BPH with obstruction/lower urinary tract symptoms pt denies current concerns/issues Cardiomyopathy Cirrhosis just monitoring per pt Coronary artery disease Catheterization 2013, occluded left circumflex after OM 1, 50-60% lad lesion, diffuse right coronary disease-no stents History of cardioversion Hyperlipidemia Hypertension controlled, stable per pt Pulmonary hypertension Moderate per 11/2020 echo Sleep apnea Bipap-nightly Solitary pulmonary nodule He reports h/o heart failure with initial afib episode, follows with cardio. Patient denies h/o stroke, seizures, heart attack, DM, blood clots or blood transfusions. Exercise / Class Metabolic Activity II 4-5 Yardwork/Stairs/Walk up hill (no CP or SOB with 1 FOS) Past Family History Family History Father , Age 89 Cardiac disorder Stroke Myocardial infarction Mother Cardiac disorder Hypertension Cancer Other Diabetes Heart disease No family history of bleeding disorder Denies family history of Ovarian cancer Prostate cancer Breast cancer Colorectal cancer Past Surgical History Surgical History (Updated 04/08/21 @ 10:07 by Shanon Marsh PA-C) History of Achilles tendon repair right History of arthroscopy of knee bilat History of cardiac cath over 5 yrs, no stents History of colonoscopy History of heart surgery 4 ablations > for Afib > last one Jun 2017 History of rotator cuff surgery right History of tonsillectomy History of tooth extraction wisdom History of transurethral resection of prostate Past Anesthesia History No Hx of Anesthesia Complications and No Family Hx of Anesthesia Complications History of PONV No Hx of PONV and No Hx of Motion Sickness Social History Smoking Status: Former smoker tobacco type: cigarettes Do You Dip or Chew Tobacco: No Smoking End Date: 30 yrs ago Hx Alcohol Use: Yes Alcohol type: beer and wine alcohol intake frequency: a few times a month Hx Substance Use: No substance use type: does not use Review of Systems Rare heartburn/reflux with spicy foods. Denies issues laying flat re: reflux. Patient denies chest pain, shortness of breath, dyspnea on exertion, fever, chills, cough, wheezing, or palpitations. Physical Exam Vital Signs Vitals BP 112/66 P 54 TEMP 98.1 SP02 96% on RA RESP 16 Physical Full cervical extension range of motion without pain TMD 3.5 finger breaths Mallampati Score 1 Dentition: intact, several missing molar bilat upper and lower; several caps/crowns molars bilat upper and lower and bridge of 2 teeth upper sides bilat; denies loose or chipped tooth or implants Lungs: normal respiratory effort. Clear throughout to auscultation, no adventitious breath sounds Cardiac: regular rate and rhythm, no murmurs noted Carotid arteries: negative bruit bilat Extremities: no distal extremity edema Lab Results Anesthesia Preop Results Results Anesthesia Widget: WBC 8.04 K/uL (4.8-10.8) 04/08/21 Hgb 15.6 g/dL (14.0-18.0) 04/08/21 Hct 47.4 % (42-52) 04/08/21 Plt 176 K/uL (130-400) 04/08/21 Na 138 mmol/L (136-145) 04/08/21 K 4.8 mmol/L (3.5-5.1) 04/08/21 Cl 107 mmol/L (98-107) 04/08/21 CO2 28 mmol/L (21-32) 04/08/21 BUN 18 mg/dl (7-18) 04/08/21 Creat 1.03 mg/dl (0.6-1.4) 04/08/21 Glucose Level 94 mg/dl (70-99) 04/08/21 PT 12.1 Seconds (9.0-12.0) H 04/08/21 PTT 36.0 Seconds (21.0-31.0) H 04/08/21 INR 1.2 (0.9-1.1) H 04/08/21 Blood Type O Negative 04/08/21 Antibody Screen NEGATIVE 04/08/21 Testing Electrocardiogram Date: 12/26/20 Normal sinus rhythm, rate [address] minor nons[address] ST and T wave abnormality. Abnormal ECG. When compared with ECG of December 25, 2020, No significant chagne was found. Confirmed by Henrik Herring. Reviewed at cardio office visit per records. Chest X-Ray Date: 12/25/20 Findings: + NAD (Cardiomegaly. Mild lower lung interstitial thickening. This could reflect atelectasis. Pulmonary vascular congestion or an infectious process could appear similar.) Echocardiogram Date: 12/26/20 Compared with 06/25/2019 study, minimal decline in left ventricular systolic function, mild to moderate mitral and tricuspid regurgitation now seen, moderate pulmonary hypertension now seen. Left ventricle is borderline dilated. Left ventricular systolic function is low normal. EF 50-55%. Borderline global hypokinesis of the left ventricle. Mild cLVH. Right ventricle is normal in size and function. Mild to moderate mitral regurgitation. Mild to moderate tricuspid regurgitation. Right ventricular systolic pressure is elevated at 40-50 mmHg. Other Testing Chest CT 01/20/2021: Thoracic aorta: There is mild atherosclerotic calcification of the thoracic aorta, which is normal in caliber and demonstrates bovine variant arch anatomy. Heart: The heart is enlarged and without pericardial effusion. The coronary arteries are densely calcified. Lungs and pleural spaces: There is no airspace consolidation typical for pneumonia or pleural effusion. Mild scarring/atelectasis is noted at the lung bases. The trachea and central airways are clear. A calcification containing nodule in the left upper lobe is been present dating back to 2011 and is of doubtful significance. Mild peribronchial thickening is noted. IMPRESSION: 1. No airspace consolidation or pleural effusion is identified. Airspace consolidation seen on 12/26/2020 has resolved. 2. Cardiomegaly with advanced coronary artery calcification. 3. Additional findings as above.
--- NOTE | 2021-07-25 11:33 | History and Physical Report ---
DATE OF ADMISSION: 07/27/2021 CHIEF COMPLAINT: Persistent left knee pain and discomfort. HISTORY OF PRESENT ILLNESS: The patient is a 76-year-old gentleman who presents for surgical treatme nt of his left knee. He has got a year and a half history of increasing left knee pain and discomfor t that has gradually gotten worse over time. Pain is mostly medial, but some global pain. He has pena d shots in the knees, which provided him some temporary relief for about 4-6 weeks and that is it. I n the last 6 weeks in between injections, it had been pretty rough. He does have a history of knee a rthroscopy done by Dr. Au 15-20 years ago. The more he is up and on his knees, the more they hurt . He has nighttime pain. He has limited his anti-inflammatory use due to atrial fibrillation, on Xa relto. He would like to have his left knee fixed. PAST MEDICAL HISTORY: 1. Atrial fibrillation, on Xarelto. 2. Elevated cholesterol. 3. Hypertension. 4. Sleep apnea with CPAP machine. 5. Mild obesity, BMI of 35. PAST SURGICAL HISTORY: Includes, 1. Shoulder surgery. 2. Achilles tendon surgery. 3. Four heart ablations, but still on Xarelto. 4. Bilateral knee scopes done by Dr. Au. ALLERGIES: None. CURRENT MEDICATIONS: 1. Lisinopril 2.5 mg. 2. Metoprolol 50 mg a day. 3. Xarelto 20 mg. 4. Finasteride 5 mg. 5. Zetia 10 mg. 6. Vitamin D3. 7. Atorvastatin 80 mg a day. SOCIAL HISTORY: A 76-year-old male. He is . Two drinks per week. Does not smoke. FAMILY HISTORY: Noncontributory. REVIEW OF SYSTEMS: Significant for atrial fibrillation. He has had multiple ablations, but still on Xarelto. No history of DVT or PE. Of note, his most recent EKG shows normal sinus rhythm. PHYSICAL EXAMINATION: GENERAL: Shows a pleasant middle-aged male. Looks to be in pretty good health. HEENT: Benign. NECK: Supple. No lymphadenopathy. LUNGS: Clear to auscultation. HEART: Has a regular rate and rhythm. ABDOMEN: Soft, nontender, nondistended. EXTREMITIES: Grossly neurovascularly intact except as follows: Examination of the left knee reveals the patient walks with a bit of a varus thrust. Small knee effusion. He is tender mostly over the medial joint line. Range of motion about 5 degrees short of full extension to 125 degrees of flexion . He does have a little bit of laxity to his Glenn test. No real pivot. He has got no pain with hip motion. X-RAYS: X-rays of the left knee from previously are reviewed. It shows advanced left knee degenerat romi joint disease. He has got a near complete loss of his medial joint space. He has got anterior s ubluxation of the tibia. Subchondral sclerosis. 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 He has jasvir led conservative treatment and would like to have his left knee fixed. PLAN: We are going to proceed with left knee replacement. He is to stop the Xarelto 3 days preop. Hold lisinopril on the morning of surgery. The risks and benefits of left total knee replacement wer e explained to the patient and include, but not limited to DVT, PE, , infection, neurological in jury, vascular injury, bleeding problem, pain, limited range of motion, stiffness, failure to relieve his symptoms, incomplete relief of symptoms, need for further surgery in the future, fracture, leg l ength inequality, nerve palsy, etc. The patient understands and desires to proceed. Informed consen t is obtained. We did talk about holding his Xarelto 3 days preop. He will take the metoprolol on the morning of [facility]. Hold the lisinopril on the morning of surgery. He will bring his CPAP machine to the [facility]. He is going to use [facility] program. Job ID: [id number]
[~2021-07-27 06:39] MED LIST changes: +ACETAMINOPHEN 500 MG TAB PO SCH; -ATOR-26 PO; +BUPIVACAINE LIPOSOME/PF 266 MG, BUPIVACAINE/EPINEPHRINE 50 ML, SODIUM CHLORIDE 0.9% 30 ... INFIL SCH; -CHOL2000 PO; -CLOTLOT2; +FAMOTIDINE 20 MG TAB PO SCH; -FINA5TAB PO; +GABAPENTIN 300 MG CAP PO SCH; -LIDOCAINE HCL 2% 2 ML VIAL (20MG/ML) ONE; +LR 500ML BOLUS, THEN 15ML/HR IV SCH; +LR 60ML/HR IV SCH; +METOCLOPRAMIDE HCL 10 MG TABLET PO SCH; -PROPOFOL IV EMULSION 10 MG/ML 20 ML VIAL IV ONE; -TPRSR50 PO; +TRANEXAMIC ACID 1,000 MG **IV Intra-op IV SCH; -XRL20 PO; +ceFAZolin 2000MG 2,000 MG/15 ML SYR IV SCH
--- NOTE | 2021-07-27 06:51 | History & Physical Bridge Note ---
Date of Service July 27, 2021 History & Physical Bridge Note I have examined the patient, reviewed the History & Physical and in the interval since the performance of the History & Physical I have noted the following changes of clinical significance: no changes noted
[2021-07-27] MEDS ORDERED: EPINEPHrine INJ 1 MG/ML AMP ONE (07:14)
[2021-07-27] MEDS ORDERED: BUPIVACAINE 0.5 % 5 MG/1 ML PF 10ML VIAL ONE (07:14)
[2021-07-27] MEDS ORDERED: BUPIVACAINE 0.25% 30 ML VIAL ONE (07:15)
[2021-07-27] MEDS ORDERED: DEXAMETHASONE SOD INJ 4 MG/ML VIAL ONE (07:15)
[2021-07-27] MEDS ORDERED: ONDANSETRON INJ 2 MG/ML 2 ML VIAL ONE (07:50)
[2021-07-27] MEDS ORDERED: LIDOCAINE 2% 2 ML VIAL/AMP(20MG/ML) INFIL ONE (07:50)
[2021-07-27] MEDS ORDERED: MIDAZOLAM HCL 1 MG/ML 2ML VIAL ONE ×2 (07:50)
[2021-07-27] MEDS ORDERED: PROPOFOL IV EMULSION 10 MG/ML 20 ML VIAL IV ONE (07:50)
[2021-07-27] MEDS ORDERED: ATROPINE SULFATE 0.1 MG/ML 10ML SYR IV PRN (08:21)
[2021-07-27] MEDS ORDERED: ONDANSETRON INJ 2 MG/ML 2 ML VIAL IV PRN ×2 (08:21→12:37)
[2021-07-27] MEDS ORDERED: fentaNYL citrate 100 MCG/2 ML VIAL IV PRN (08:21)
[2021-07-27] MEDS ORDERED: PROMETHAZINE HCL 6.25 MG in SODIUM CHLORIDE 0.9% 50 ML IV PRN (08:21)
[2021-07-27] MEDS ORDERED: ePHEDrine sulfate 50 MG/ML AMP IV PRN (08:21)
[2021-07-27] MEDS ORDERED: fentaNYL citrate 100 MCG/2 ML VIAL ONE (08:23)
[2021-07-27] MEDS ORDERED: BUPIVACAINE/EPINEPHRINE 0.25% 1:200,000 30 ML VIAL ONE (08:53)
[2021-07-27] MEDS ORDERED: SODIUM CHLORIDE 0.9% PF 50 ML VIAL ONE (08:53)
[2021-07-27] MEDS ORDERED: BUPIVACAINE LIPOSOME 1.3% 266 MG/20 ML VIAL ONE (08:53)
[2021-07-27] MEDS ORDERED: KETOROLAC 30 MG/ML VIAL ONE (09:19)
--- NOTE | 2021-07-27 11:11 | Operative Report ---
PG Post Operative Report Pre & Post Diagnosis Operation Date: 07/27/21 09:10 Pre-Op Diagnosis: Left Knee Osteoarthritis Post-Op Diagnosis: Left Knee Osteoarthritis I identified the patient and participated in the time-out.: Yes Procedure Operation Date: 07/27/21 09:10 Actual Procedures p Left Total Knee Arthroplasty, Cemented(Left) - Stevan Brothers MD Surgeon Stevan Brothers MD Section Gang Cameron Estevez PA-C Estimated Blood Loss 50 Findings Consistent with Post-Op Diagnosis Operative findings were advanced left knee DJD. A pretty extensive grade 4 [id number] disease of the medial and patellofemoral compartments. Lateral compartment was pretty well spared. Moderate-sized joint effusion. Fixed varus deformity to his knee Fluids 1500 cc Specimens Left knee sent for pathology Anesthesia Type Spinal MAC Complications none Disposition Accompanied Patient To Recovery: No Indications Patient is 76-year-old gentleman is had a several year history of gradual progressive increasing left knee pain discomfort. He has been through extensive conservative treatment which became less successful over time. X-rays show advanced knee arthritis. Elected proceed with surgical treatment. Description of Procedure Operative implants consist of: 1 Biomet Vanguard size 72.5 left posterior stabilized femoral component. 2. Size 79 tibial tray. 3. 12 mm posterior stabilized polyethylene insert. 4. 31 x 8 all polypatella. The patient was taken the operating, identified, placed on the operating table supine position protectors were properly padded. IV antibiotics tried by anesthesia team. A spinal anesthetic and abductor canal block had provided in the holding area. Rojas catheter was placed in sterile fashion for the left atrium was then placed in the left lower extremities and prepped draped in usual sterile fashion. The left leg was elevated exsanguinated with use of an Esmarch in terms playset 3 mmHg. An anterior approach left knee was then performed to longitudinal incision centered over the patella. Sharp dissection was carried through subcutaneous this down the extensor mechanism. A medial parapatellar arthrotomy incision was made. Some subperiosteal dissection was carried out medially. The fat pad was resected beneath patella tendon. Lateral patellofemoral ligament was released. Patella subluxated laterally and the knee was flexed. The osteophytes were taken off distal femur. ACL and PCL were then released from distal femur the tibia subluxated anteriorly. The external tibial alignment jig was then placed the interface the tibia and adjusted 14 mm medially. Proximal tibial cut was made remove about a millimeter or 2 of bone from most deficient aspect medial tibial plateau. Some osteophytes taken off medially. The tibia sized to a size 79. Attention drawn the femur. The distal femur examined the sharp drop with intramedullary canal was suction. A left 6 degree valgus cutting guide was placed. Distal femoral cutting block was pinned in place. Distal femoral cut was made to take an additional 3 mm of bone off distal femur. The femur was then sized to a size 72.5. The AP cutting block was pinned parallel to the Alpar axis which was 5 degrees of external rotation. The anterior cut, anterior chamfer, posterior cut, posterior chamfer cuts were made. The box cutting guide was placed in the just slight lateral box cut was made. The knee was flexed. The remnants of the medial and lateral menisci were excised. The osteophyte taken off the posterior aspect the femur. A trial femoral component was placed. The tibial tray was pinned in maximum external rotation and the drill and stem punch used to create defect in proximal tibia for the tibial tray. Then trialed the knee and the 12 mm insert fit most appropriately. Attention drawn the patella. The patella was cleaned of all soft tissues. Patella thickness measured 23 mm in thickness was cut down to 14. Was sized to a size 31 patella. The lug holes were drilled for 31 patella. The lateral osteophyte was removed. Trial patella component was placed. Knee was taken through range of motion patella tracked nicely with no thumbs test. Attention drawn to place the permanent components. All trial components were removed. Bone plug was placed into the distal femur limit blood loss. A double batch Palacos G cement was mixed. Biomet Vanguard size 72.5 left posterior stabilized femoral component, size 79 tibial tray, 12 mm posterior stabilized polyethylene insert, and a 31 x 8 all polypatella and cemented in place. Knee was brought out into full extension total cement hardened. Final cement check was then performed. Pericapsular tissues were injected with total 100 cc of combination of 20 cc of Exparel, 30 cc normal saline, 50 cc of quarter percent Marcaine with epinephrine. The patient did receive 1 g tranexamic acid but the tourniquet was then let down for final tourniquet time of 60 minutes. Hemostasis surgeons electrocautery. Extensor mechanism closed with combination 1 PDS suture #1 Vicryl suture in a [id number] fashion. Extensor mechanism checked found to be intact the subcutaneous tissue then closed with 2 Dexon suture in a buried fashion skin was closed skin fabián. Leg was then cleaned and dried and a sterile dressing both Xeroform, 4 x 4's, sterile cast padding, Melvin bandage were applied. The patient was then transferred to the recovery room in stable condition. Patient tolerated the procedure well and there were no complications. Cameron Estevez, my physician critical care physician assistant, was present for the entire procedure. His assistance was essential and required for appropriate patient positioning, prepping and draping, surgical exposure, performing the technical details of the operation, placement the implants, closure of the wound, and placement of the sterile bandage. I attest to the content of the Intraoperative Record and any orders documented therein. Any exceptions are noted below.
--- NOTE | 2021-07-27 11:23 | XRay Report ---
LEFT KNEE 2 VIEWS History: Left total knee arthroplasty. Degenerative arthritis. Postop. FINDINGS: The patient is status post a left total knee arthroplasty. The hardware is intact. No fract ure or dislocation. Skin fabián are in place. IMPRESSION: Left total knee arthroplasty. No evidence for hardware complication. ACT 112: Negative or not required by law. Electronically signed by: Chance Fairbanks M.D. 07/27/2021 11:21 AM
--- NOTE | 2021-07-27 11:44 | Anesthesiology Progress Note ---
Date of Service July 27, 2021 Anesthesia Post Procedure Vital Signs Vital Signs: Temp Pulse Pulse Resp BP Pulse Ox 07/27/21 11:35 74 20 100/59 L 93 07/27/21 11:25 74 26 H 97/59 L 98 07/27/21 11:15 72 19 100/56 L 97 07/27/21 11:05 97.3 F L 78 14 90/56 L 95 07/27/21 07:15 98.6 F 63 18 137/79 97 Transfer of Care Handoff Completed per policy Notes Mental Status: alert / awake / arousable and participated in evaluation Patient Amnestic to Procedure: Yes Nausea / Vomiting: adequately controlled Pain: adequately controlled Airway Patency, RR, SpO2: stable & adequate BP & HR: stable & adequate Hydration State: stable & adequate Neuraxial Anesthesia: was administered and sensory block is resolving Anesthetic Complications: no major complications apparent and Pt Satisfied with anesthetic care
[2021-07-27] MEDS ORDERED: HYDROmorphone INJ 0.5 MG/0.5 ML SYR IV PRN (12:37)
[2021-07-27] MEDS ORDERED: ALUMINUM/MAGNESIUM SUSP 30 ML UDC PO PRN (12:37)
[2021-07-27] MEDS ORDERED: METOCLOPRAMIDE HCL INJ 5 MG/ML 2 ML VIAL IV PRN (12:37)
[2021-07-27] MEDS ORDERED: bisacodyL 10 MG SUPP PR PRN (12:37)
[2021-07-27] MEDS ORDERED: MAGNESIUM HYDROXIDE SUSP 30 ML UDC PO PRN (12:37)
[2021-07-27] MEDS ORDERED: oxyCODONE HCL IR 5 MG TAB (IMMEDIATE RELEASE) PO PRN (12:37)
[2021-07-27] MEDS ORDERED: NALOXONE HCL 0.4 MG/1 ML VIAL/CARP IV PRN (12:37)
[2021-07-27] MEDS: SODIUM CHLORIDE 0.9% 1000ML 1,000 ML IV SCH ×2 (13:03→23:25)
[2021-07-27] MEDS ORDERED: ONDANSETRON 4 MG OD TAB PO PRN (13:21)
[2021-07-27] MEDS: KETOROLAC TROMETHAMINE 15 MG/ML VIAL IV SCH ×2 (13:32→20:01)
[2021-07-27] MEDS ORDERED: TRANEXAMIC ACID / 0.7% NACL 1,000 MG/100 ML BAG IV SCH (17:00)
[2021-07-27] MEDS: ceFAZolin 2000MG 2,000 MG/15 ML SYR IV SCH (17:30)
[2021-07-27] MEDS: ASCORBIC ACID 500 MG TAB PO SCH (17:30)
[2021-07-27] MEDS: DOCUSATE SODIUM 100 MG CAP PO SCH (20:50)
[2021-07-27] MEDS: TAPENTADOL HCL ER 50 MG TABCR PO SCH (20:50)
[2021-07-27] MEDS ORDERED: ATORVASTATIN 40 MG TAB PO SCH (21:00)
[2021-07-27] MEDS ORDERED: METOPROLOL SUCC 50MG EXT REL TAB PO SCH (21:00)
[2021-07-27] MEDS ORDERED: SENNA 8.6 MG TAB PO SCH (21:00)
[2021-07-27] MEDS ORDERED: FINASTERIDE 5 MG TAB PO SCH (21:00)
[2021-07-27] MEDS: ACETAMINOPHEN 500 MG TAB PO SCH (21:50)
[2021-07-28] MEDS: ceFAZolin 2000MG 2,000 MG/15 ML SYR IV SCH (01:38)
[2021-07-28] MEDS: KETOROLAC TROMETHAMINE 15 MG/ML VIAL IV SCH ×2 (01:38→08:20)
[2021-07-28] MEDS: ACETAMINOPHEN 500 MG TAB PO SCH (05:20)
[2021-07-28 07:04] LABS: Hematocrit (blood only) 37.2 % (42-52); Hemoglobin 12.2 g/dL (14.0-18.0); Mean Corpuscular Hemoglobin 29.8 pg (25-34); Mean Corpuscular Hgb Conc 32.8 g/dL (32-36); Mean Platelet Volume 11.6 fL (7.4-10.4); Platelet Count 151 K/uL (130-400); RDW Coefficient of Variation 13.8 % (11.5-14.5); RDW Standard Deviation 45.4 fL (36.4-46.3); Red Blood Count 4.09 M/uL (4.7-6.1); White Blood Count 14.96 K/uL (4.8-10.8)
[2021-07-28 07:30] LABS: BUN Creatinine Ratio 21.8 (10-20); Calcium 8.8 mg/dl (8.5-10.1); Est GFR (African American) 75.7 ml/min; Est GFR (Non-African American) 65.3 ml/min; Potassium 4.3 mmol/L (3.5-5.1)
[2021-07-28] MEDS ORDERED: dexAMETHasone 10 MG in SYRINGE 0 ML IV SCH (08:00)
[2021-07-28] MEDS ORDERED: EZETIMIBE 10 MG TABLET PO SCH (09:00)
[2021-07-28] MEDS: ASCORBIC ACID 500 MG TAB PO SCH (09:00)
[2021-07-28] MEDS ORDERED: CHOLECALCIFEROL 1,000 UNITS 25 MCG TAB PO SCH (09:00)
[2021-07-28] MEDS ORDERED: TAMSULOSIN HCL 0.4 MG CAP PO SCH (09:00)
[2021-07-28] MEDS: TAPENTADOL HCL ER 50 MG TABCR PO SCH (09:00)
[2021-07-28] MEDS ORDERED: DOCUSATE SODIUM/SENNA 50/8.6MG TAB PO SCH (09:00)
[2021-07-28] MEDS ORDERED: lisinopril 2.5 MG TAB PO SCH (09:00)
[2021-07-28] MEDS ORDERED: MULTIVITAMIN TAB PO SCH (09:00)
[2021-07-28] MEDS: DOCUSATE SODIUM 100 MG CAP PO SCH (09:01)
[2021-07-28] MEDS ORDERED: RIVAROXABAN 10 MG TABLET PO SCH (11:00)
--- NOTE | 2021-07-28 14:15 | Progress Notes ---
DATE OF SERVICE: 07/28/2021. SUBJECTIVE: A 76-year-old gentleman now postoperative day 1 from a left knee replacement. He is doi ng pretty well. Pain is controlled. Therapy went pretty well. No chest pain or shortness of breath . Not feeling dizzy or lightheaded. OBJECTIVE: VITAL SIGNS: Temperature 36.6. Vital signs are stable. GENERAL: Shows a pleasant middle-aged male. He is sitting up in his bedside and looks quite comfort able. LUNGS: Clear to auscultation. HEART: Regular rate and rhythm. ABDOMEN: Soft, nontender, nondistended. EXTREMITIES: Grossly neurovascularly intact except as follows. Examination of the left leg reveals the dressing to be clean, dry and intact. He can dorsiflex and p lantarflex his foot appropriately. He can do a pretty good straight leg raise. Range of motion is 0 -90 degrees plus. LABORATORY DATA: Hemoglobin 12.2. Hematocrit 37.2. White cell count 14.96. Electrolytes are stabl e. ASSESSMENT: A 76-year-old gentleman, postoperative day 1 from a left knee replacement. He is doing well. His pain is controlled. He is neurologically intact. PLAN: 1. DVT prophylaxis includes thigh-high TEDs, SCDs and back on his anticoagulation. We will start hi m at a prophylactic dose and then proceed to full strength dose upon discharge using Xarelto. 2. PT/OT. He can weight bear as tolerated, left total knee protocol. 3. Pain control, doing okay with current pain regimen. 4. Disposition: Plan to discharge to home with some home health likely later today. Job ID: [id number]
== END 2021-07-28 15:10 | disposition home health service (06) ==
LOC: ASU 06:39 → 3N 06:39

== ENCOUNTER 2022-08-02 05:43 | Inpatient (IN) ==
--- NOTE | 2022-07-06 15:51 | PAT Medication Instructions ---
Medication Instructions Date of Service July 06, 2022 Home Medications Medication Instructions Recorded ezetimibe 10 mg tablet (Zetia) 10 mg PO QAM #90 tabs 01/05/22 lisinopril 2.5 mg tablet 2.5 mg PO QAM #90 tabs 02/02/22 cholecalciferol (vitamin D3) 50 mcg (2,000 unit) capsule 2,000 units PO QAM ezetimibe 10 mg tablet (Zetia) 10 mg PO QAM lisinopril 2.5 mg tablet 2.5 mg PO QAM acetaminophen 500 mg capsule 1,000 mg PO TID PRN Pain atorvastatin 80 mg tablet 80 mg PO HS finasteride 5 mg tablet 5 mg PO QAM metoprolol succinate 50 mg tablet,extended release 24 hr 50 mg PO HS rivaroxaban 20 mg tablet 20 mg PO HS ASK your prescriber and surgeon rivaroxaban 20 mg tablet 20 mg PO HS DO NOT take the morning of surgery cholecalciferol (vitamin D3) 50 mcg (2,000 unit) capsule 2,000 units PO QAM lisinopril 2.5 mg tablet 2.5 mg PO QAM Take morning of surgery With a small sip of water, OTHERWISE NOTHING TO EAT OR DRINK AFTER MIDNIGHT: ezetimibe 10 mg tablet (Zetia) 10 mg PO QAM acetaminophen 500 mg capsule 1,000 mg PO TID PRN Pain (if needed) finasteride 5 mg tablet 5 mg PO QAM Take evening before surgery acetaminophen 500 mg capsule 1,000 mg PO TID PRN Pain (if needed) atorvastatin 80 mg tablet 80 mg PO HS metoprolol succinate 50 mg tablet,extended release 24 hr 50 mg PO HS Other Notes If you have any questions please call us at [phone] or [phone] or [phone] or [phone]
--- NOTE | 2022-07-12 13:15 | Anesthesiology Consultation ---
Date of Service July 12, 2022 Assessment & Plan (1) Encounter for pre-operative examination: Chart Review Chart Review: Pending: Refer to Additional Notes / Consult section (pending cardio response to workload note re: abnormal EKG ) and Patient seen in Pre Admission Testing -Workload note sent to cardio re: abnormal EKG and if patient is optimized from cardiac standpoint - Pt is NOT a Same Day Joint candidate due to age Per PAT appt on 07/12/22, patient denies any recent travel or large group activities. Pt is vaccinated for Covid. Will leave to surgeon's discretion if preop Covid testing needed. Educated on importance of using Covid precautions one week prior to surgery Pt last seen by cardio 03/17/22= atrial arrhythmiasappears to be doing quite well after last ablation in June 2018. No clinical recurrence of any arrhythmia. Continue anticoagulation. CADknown element of CAD. Catheterization in 2013 revealed occlusion of the left circumflex distal to OM1, nonocclusive disease in the LAD and diffuse RCA disease. No current symptoms suggestive of coronary insufficiency or angina. Continue current meds. Cardiomyopathymost recent echocardiogram demonstrates preserved EF. Hyperlipidemiacontinue statin and Zetia. Mitral regurgitationmild to moderate on recent echo. We will continue to follow. Follow-up in 6 months. Left TKA 07/27/21= Done under SAB at L/4 with 1 attempt. History Surgery Operation Date: 08/02/22 12:30 Proposed Procedures p Left Reverse Total Shoulder Arthroplasty - Geo Cannon, Height/Weight Height: 5 ft 8 in Weight: 107.3 kg Allergies Allergy/AdvReac Type Severity Reaction Status Date / Time No Known Allergies Allergy Verified 06/25/22 07:31 Medications Home Medications Medication Instructions Recorded Confirmed Last Taken cholecalciferol (vitamin D3) 50 2,000 units PO QAM 02/13/19 06/25/22 07/26/21 08:00 mcg (2,000 unit) capsule ezetimibe 10 mg tablet (Zetia) 10 mg PO QAM #90 tabs 01/05/22 06/25/22 Unknown lisinopril 2.5 mg tablet 2.5 mg PO QAM #90 tabs 02/02/22 06/25/22 Unknown acetaminophen 500 mg capsule 1,000 mg PO TID PRN Pain 06/25/22 06/25/22 Unknown atorvastatin 80 mg tablet 80 mg PO HS 06/25/22 06/25/22 Unknown finasteride 5 mg tablet 5 mg PO QPM 06/25/22 07/12/22 Unknown metoprolol succinate 50 mg 50 mg PO HS 06/25/22 06/25/22 Unknown tablet,extended release 24 hr rivaroxaban 20 mg tablet 20 mg PO HS 06/25/22 06/25/22 Unknown Past Medical History Medical History (Updated 07/13/22 @ 09:09 by Trina Brown PA-C) Atrial fibrillation Pulmonary vein isolation 01/2014 Trial of dofetilide with QT prolongation necessitating discontinuation Repeat pulmonary vein isolation with atrial tachycardia originating from the left inferior pulmonary vein and caval tricuspid isthmus ablation 04/2014 Repeat pulmonary vein isolation, caval tricuspid isthmus ablation and lateral mitral linear ablation as well as isolation of the posterior wall 11/2015 Amiodarone for recurrent atrial flutter with cardioversion 10/2017 Pulmonary vein isolation and ablation of left atrial roof dependent flutter 06/2018 Follows with [facility], stable per 02/2022 office note Atrial flutter follows with Dr. 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-55% Cirrhosis Under observation- no jaundice Coronary artery disease Catheterization 2013, occluded left circumflex after OM 1, 50-60% lad lesion, diffuse right coronary disease-no stents Hyperlipidemia Hypertension controlled, stable per pt Pulmonary hypertension Moderate per 11/2020 echo, RVSP 40-50 mmHg Sleep apnea Bipap-nightly Solitary pulmonary nodule monitoring Exercise / Class Metabolic Activity II 4-5 Yardwork/Stairs/Walk up hill (one flight of stairs - no chest pain or SOB ) Past Family History Family History Father , Age 89 Cardiac disorder Stroke Myocardial infarction Mother Cardiac disorder Hypertension Cancer Other Diabetes Heart disease No family history of bleeding disorder Denies family history of Ovarian cancer Prostate cancer Breast cancer Colorectal cancer Past Surgical History Surgical History History of Achilles tendon repair right History of arthroscopy of knee bilat History of cardiac cath over 5 yrs, no stents, [employer] [employer] [facility]; f/u dr willard, [place] History of cardioversion History of colonoscopy History of heart surgery 4 ablations > for Afib > last one Jun 2017 History of rotator cuff surgery right History of tonsillectomy History of tooth extraction wisdom History of total left knee replacement (TKR) 07/27/21 SAB at L3-L4 1 attempt + PNB. History of transurethral resection of prostate Greenlight laser Past Anesthesia History No Hx of Anesthesia Complications and No Family Hx of Anesthesia Complications History of PONV No Hx of PONV and No Hx of Motion Sickness Social History Smoking Status: Former smoker tobacco type: cigarettes Do You Dip or Chew Tobacco: No Smoking End Date: 30-40 years ago, but only for a couple years Hx Alcohol Use: Yes Alcohol type: beer and wine alcohol intake frequency: other Alcohol Intake Frequency Comment: once per week Hx Substance Use: No substance use type: does not use Review of Systems Patient denies chest pain, shortness of breath, dyspnea on exertion, reflux, cough, wheezing, palpitations. No hx of seizures, stroke. No hx of blood clots or blood transfusions Physical Exam Vital Signs VITALS BP 116/63 P 69 TEMP 98.3 SP02 95% RESP 16 Constitutional no acute distress ENMT Mouth: no TMJ clicking Thyromental Distance: > or= 3.5 Finger Breadths (3.5) Mallampati Class: III Crowns to molars/side teeth Neck + limited neck extension Respiratory normal respiratory effort; no respiratory distress Auscultation: lungs clear to auscultation bilaterally; no wheezes Cardiovascular Rate/Rhythm: regular rate and regular rhythm Heart Sounds: no murmur Vessels: no carotid bruit Musculoskeletal Spine: no pain with cervical ROM Extremities: extremities normal to inspection Psychiatric Orientation: alert Lab Results Anesthesia Preop Results Results Anesthesia Widget: WBC 9.27 K/ul (4.8-10.8) 07/12/22 Hgb 15.4 g/dl (14.0-18.0) 07/12/22 Hct 45.3 % (42.0-52.0) 07/12/22 Plt 168 K/uL (130-400) 07/12/22 Na 137 mmol/L (136-145) 07/12/22 K 4.2 mmol/L (3.5-5.1) 07/12/22 Cl 105 mmol/L (98-107) 07/12/22 CO2 29 mmol/L (21-32) 07/12/22 BUN 20 mg/dl (6-23) 07/12/22 Creat 1.09 mg/dl (0.6-1.4) 07/12/22 Glucose Level 98 mg/dl (70-99(Fasting)) 07/12/22 PT 11.9 Seconds (9.0-12.0) 07/12/22 PTT 34.8 Seconds (21.0-31.0) H 07/12/22 INR 1.1 (0.9-1.1) 07/12/22 Blood Type O Negative 07/12/22 Antibody Screen NEGATIVE 07/12/22 Testing Electrocardiogram Date: 07/12/22 Findings: + NSR @ (63bpm) ST and T wave abnormality, consider anterolateral ischemia When compared to EKG from November- T wave inversion now evident in anterolateral leads Chest X-Ray Date: 07/12/22 Findings: + NAD and + cardiomegaly Mild linear scarring versus atelectasis of the left lung base. Echocardiogram Date: 12/26/20 Compared with 06/25/2019 study, minimal decline in left ventricular systolic function, mild to moderate mitral and tricuspid regurgitation now seen, moderate pulmonary hypertension now seen. Left ventricle is borderline dilated. Left ventricular systolic function is low normal. EF 50-55%. Borderline global hypokinesis of the left ventricle. Mild cLVH. Right ventricle is normal in size and function. Mild to moderate mitral regurgitation. Mild to moderate tricuspid regurgitation. Right ventricular systolic pressure is elevated at 40-50 mmHg. COVID-19 Risk Screen Screening Information COVID-19 Screen Date: 07/12/22 Exposure 21 Days Family/Household +COVID Last 21 Days: No Exposure 10 Days Any COVID Exposure Last 10 Days: No Symptoms Last 10 Days Experienced COVID Sx Last 10 Days: No + COVID 0-90 Days COVID + in Last 0-90 Days: No Risk Plan COVID Risk Plan: No Risk Identified Patient Education COVID Preop Screening Education Complete: Yes
[2022-08-02] MEDS ORDERED: ACETAMINOPHEN 500 MG TAB PO SCH (06:00)
[2022-08-02] MEDS ORDERED: TRANEXAMIC ACID 1,000 MG **IV Pre-op IV SCH (06:00)
[2022-08-02] MEDS ORDERED: FAMOTIDINE 20 MG TAB PO SCH (06:00)
[2022-08-02] MEDS ORDERED: TRANEXAMIC ACID 1,000 MG **IV Intra-op IV SCH (06:00)
[2022-08-02] MEDS ORDERED: ceFAZolin 2000MG 2,000 MG/15 ML SYR IV SCH (06:00)
[2022-08-02] MEDS ORDERED: GABAPENTIN 300 MG CAP PO SCH (06:00)
[2022-08-02] MEDS ORDERED: ORTHO JOINT MIX INFIL SCH (06:00)
[2022-08-02] MEDS ORDERED: LR 15ML/HR IV SCH (06:00)
[2022-08-02] MEDS ORDERED: dexAMETHasone 4 MG TAB PO SCH (06:00)
[2022-08-02] MEDS ORDERED: LR 60ML/HR IV SCH (06:00)
[2022-08-02] MEDS ORDERED: BUPIVACAINE 0.5 % 5 MG/1 ML PF 10ML VIAL ONE (06:14)
--- NOTE | 2022-08-02 06:31 | History & Physical Report ---
Date of Service August 02, 2022 Assessment & Plan (1) Rotator cuff tear: We will proceed with a left reverse shoulder arthroplasty. Postoperatively he will be placed in a sling and will be part of our outpatient joint protocol. He will be discharged home on oral pain medications. He plans to use [facility] upon discharge. History of Present Illness Chief Complaint: Cuff tear arthropathy of the left shoulder. Primary Care Provider: Raimundo Carson MD Varun is a pleasant 77-year-old male who fell around [place]. He was having a pseudoparalysis of the left shoulder. He is starting to regain a little bit of range of motion. He saw my partner Dr. Zabala. He had an MRI of his left shoulder. The MRI showed a large retracted rotator cuff tear. He is having some pain at night. He is having trouble doing anything away from his body or up overhead. He has a history of right rotator cuff repair done 15 years ago and did well with that. After failing extensive conservative treatment, he has elected proceed with a left reverse shoulder arthroplasty.. Allergies Allergy/AdvReac Type Severity Reaction Status Date / Time No Known Allergies Allergy Verified 08/02/22 06:01 Home Medications Medication Instructions Recorded Confirmed Type cholecalciferol (vitamin D3) 50 2,000 units PO QAM 02/13/19 08/02/22 History mcg (2,000 unit) capsule ezetimibe 10 mg tablet (Zetia) 10 mg PO QAM #90 tabs 01/05/22 08/02/22 Rx lisinopril 2.5 mg tablet 2.5 mg PO QAM #90 tabs 02/02/22 08/02/22 Rx acetaminophen 500 mg capsule 1,000 mg PO TID PRN Pain 06/25/22 08/02/22 History atorvastatin 80 mg tablet 80 mg PO HS 06/25/22 08/02/22 History finasteride 5 mg tablet 5 mg PO QPM 06/25/22 08/02/22 History metoprolol succinate 50 mg 50 mg PO HS 06/25/22 08/02/22 History tablet,extended release 24 hr rivaroxaban 20 mg tablet 20 mg PO HS 06/25/22 08/02/22 History Past Med/Surg History Medical History Atrial fibrillation Pulmonary vein isolation 01/2014 Trial of dofetilide with QT prolongation necessitating discontinuation Repeat pulmonary vein isolation with atrial tachycardia originating from the left inferior pulmonary vein and caval tricuspid isthmus ablation 04/2014 Repeat pulmonary vein isolation, caval tricuspid isthmus ablation and lateral mitral linear ablation as well as isolation of the posterior wall 11/2015 Amiodarone for recurrent atrial flutter with cardioversion 10/2017 Pulmonary vein isolation and ablation of left atrial roof dependent flutter 06/2018 Follows with [facility], stable per 02/2022 office note Atrial flutter follows with Dr. Leo BPH with obstruction/lower urinary tract symptoms pt denies current concerns/issues- s/p TURP Cardiomyopathy Tachycardia mediated CM- resolved EF 50-55% Cirrhosis Under observation- no jaundice Coronary artery disease Catheterization 2013, occluded left circumflex after OM 1, 50-60% lad lesion, diffuse right coronary disease-no stents Encounter for pre-operative examination Hyperlipidemia Hypertension controlled, stable per pt Pulmonary hypertension Moderate per 11/2020 echo, RVSP 40-50 mmHg Sleep apnea Bipap-nightly Solitary pulmonary nodule monitoring Surgical History History of Achilles tendon repair right History of arthroscopy of knee bilat History of cardiac cath over 5 yrs, no stents, [employer] [facility] [employer]; f/u shanelle [place]led[place] History of cardioversion History of colonoscopy History of heart surgery 4 ablations > for Afib > last one Jun 2017 History of rotator cuff surgery right History of tonsillectomy History of tooth extraction wisdom History of total left knee replacement (TKR) 07/27/21 SAB at L3-L4 1 attempt + PNB. History of transurethral resection of prostate Greenlight laser Family History Father , Age 89 Cardiac disorder Stroke Myocardial infarction Mother Cardiac disorder Hypertension Cancer Other Diabetes Heart disease No family history of bleeding disorder Denies family history of Ovarian cancer Prostate cancer Breast cancer Colorectal cancer Social History Smoking Status: Former smoker Tobacco Type: Cigarettes Age Started Using Tobacco: 21; Age Quit Using Tobacco: 40; Smoking End Date: 30-40 years ago, but only for a couple years; Second Hand Exposure: No; Do You Dip or Chew Tobacco: No; Tobacco Cessation Education Requested by Patient: No Hx Alcohol Use: Yes Alcohol type: beer and wine Alcohol Intake Frequency: 2-3 x/Week Hx Substance Use: No Preferred Language: Burkinan Communication Ability: Effective Visual Impairment: Partially Limited Hearing Ability: Use of Hearing Aid Skein Bander Required: No Beliefs That Will Affect Care: None marital status: Current Living Situation: Spouse current occupational status: retired How many Children do You have: 4 Other Information That Helps Us Care for You: No Feels Safe at Home: Yes Safety Concerns: Feels Safe At This Time Childhood Exposure to Second-Hand Smoke: No caffeine: Yes (coffee) Dental Care, Regularly: Yes Physical Activity Frequency: 1-2 Times per Week Seatbelt Use: always Sunscreen Use: Yes Assistive Devices: None and BiPap Review of Systems All systems reviewed & are unremarkable except as noted in HPI & below. Physical Exam On physical examination of the left shoulder, he has a pseudoparalysis. He only has about 30 degrees of forward elevation and 30 degrees of abduction. He has 3 out of 5 motor strength throughout.. Constitutional WD/WN, vitals as above Eyes PERRL, conjunctivae normal, anicteric sclerae ENMT external ear and nose normal, oropharynx normal Neck trachea midline, no thyromegaly Respiratory normal respiratory effort, lungs clear to auscultation Cardiovascular RRR, no murmur, no edema Gastrointestinal (Abdomen) normal bowel sounds, soft, nontender, no hepatosplenomegaly Skin no rashes, warm and dry Psychiatric A+Ox3, euthymic affect Results & Data Results & Data Laboratory Results . Diagnostic Findings MRI of the left shoulder shows a large to massive chronic retracted rotator cuff tear. There is retraction back to the level of the glenoid.. PG Care Time/CCT Total # of Minutes Spent Total Time Spent with Patient: Total time spent is greater than 50% in coordination of care (as documented) at patient's floor/unit and/or counseling patient: Coding Level of Care Code None Diagnoses Rotator cuff tear M75.100
[2022-08-02] MEDS ORDERED: fentaNYL citrate PF 100 MCG/2 ML VIAL ONE (07:08)
[2022-08-02] MEDS ORDERED: MIDAZOLAM HCL 1 MG/ML 2ML VIAL ONE (07:08)
[2022-08-02] MEDS ORDERED: ORTHO JOINT ANESTHETIC ONE (07:24)
[2022-08-02] MEDS ORDERED: ROCURONIUM BROMIDE 10 MG/ML 5 ML VIAL IV ONE (08:37)
[2022-08-02] MEDS ORDERED: PROPOFOL IV EMULSION 10 MG/ML 20 ML VIAL IV ONE (08:37)
[2022-08-02] MEDS ORDERED: ONDANSETRON INJ 2 MG/ML 2 ML VIAL ONE (08:37)
[2022-08-02] MEDS ORDERED: ePHEDrine sulfate 50 MG/ML SYR ONE (08:37)
[2022-08-02] MEDS ORDERED: HYDROmorphone INJ 2 MG/ML SYR/VIAL ONE (09:13)
--- NOTE | 2022-08-02 09:32 | Operative Report ---
PG Post Operative Report Pre & Post Diagnosis Operation Date: 08/02/22 08:10 Pre-Op Diagnosis: Left Shoulder Cuff Tear Arthropathy with tendinopathy of the long head of the biceps tendon Post-Op Diagnosis: Left Shoulder Cuff Tear Arthropathy with tendinopathy of the long head of the biceps tendon I identified the patient and participated in the time-out.: Yes Procedure Operation Date: 08/02/22 08:10 Actual Procedures p Left Reverse Total Shoulder Arthroplasty(Left) with open biceps tenodesis as a distinct and separate procedure (modifier 59)- Geo Cannon DO Surgeon Geo Cannon DO [employer] Francisco Canales PA-C Estimated Blood Loss 300 Findings Consistent with Post-Op Diagnosis Specimens Left humeral head Description of Procedure A CPT code modifier 59: The long head of the biceps tendon was enlarged and inflamed consistent with tendinopathy. A tenodesis was opted. This was a separate and distinct portion of the procedure. For these reasons, a CPT code modifier 59 will be added to this case. Implants used: I used a Biomet Comprehensive reverse total shoulder arthroplasty system with a size 18 press fit micro humeral stem, a +6 offset humeral tray and a standard humeral bearing, a 25 mm small augment baseplate with a 6.5 mm central screw and superior and inferior locking screws, and a size 40 mm eccentric glenosphere. Varun arrived at [facility] for the above procedure. He was seen in the preoperative holding area and the operative extremity was identified and signed. He was given a preoperative antibiotic, TXA, and an interscalene nerve block. He was taken back to the operating room, laid on table in supine position, and put under general anesthesia. He was then put into the beachchair position. The shoulder was then prepped and draped in sterile fashion. A timeout was done and the patient and the operative extremity was properly identified. A deltopectoral approach was used. Dissection was taken down through the fascia and the deltoid was retracted laterally and the conjoined tendon was retracted medially. The anterior shoulder was exposed. The biceps groove was opened up and the biceps tendon was examined extensively. The biceps tendon demonstrated enlargement and inflammatory changes consistent with longstanding inflammation in the context of osteoarthritis and cuff arthropathy. The long head of the biceps tendon was then tenodesed to the upper border of the pectoralis major. This was a separate and distinct portion of the procedure. The subscapularis was was mostly torn but the capsule and the inferior aspect of the subscapularis was released off the lesser tuberosity with a peel technique. The inferior capsule was released and the humeral head was dislocated. A canal finding reamer was sent down the center of the humeral canal. Sequential reaming up to a size 18 reamer was done. Off that reamer, a proximal humeral resection guide was placed. The proximal humerus was resected at 135 of inclination and 25 of retroversion. Osteophytes were then removed and the glenoid was exposed. Time was spent doing a complete capsular and labral release. The glenoid guide was then placed in the inferior aspect of the glenoid. A 3.2 mm Steinmann pin was then placed into the glenoid vault at 10 of inclination. The glenoid baseplate was then reamed. The final size 25 mm small augment baseplate was then impacted in the place. A 6.5 mm central screw was then placed followed by superior and inferior locking screws. A 40 mm eccentric glenosphere was then impacted into place. Surrounding soft tissues were then injected with 100 cc an orthopedic pain control cocktail. The proximal humerus was then exposed. Sequential broaching of the humerus up to a size 18 broach was done. Off that broach a +6 offset humeral tray was trialed. The shoulder was then reduced, brought through a full range of motion, and felt to be stable. The shoulder was then dislocated and the broach was removed. The final size 18 micro press-fit humeral stem was then impacted into place. A standard humeral bearing was then snapped onto a +6 offset humeral tray. The humeral tray was then impacted onto the humeral stem. The shoulder was once again reduced, brought through a full range of motion, and felt to be stable. The subscapularis was chronically torn and unable to be repaired. The subscapularis was then tenodesed back to the lesser tuberosity with transosseous FiberWire sutures and side to side sutures with the arm in 45 of external rotation. A dilute betadyne lavage was then done for 3 minutes. The joint was then irrigated with normal saline solution. Hemostasis was obtained. The interval was closed with 2-0 Vicryl suture. The skin was then closed with 2-0 Vicryl and fabián. A Silverlon dressing was placed and the arm was rested in a regular arm sling. He was then extubated and transferred to a hospital bed. He taken to the postanesthesia care unit in stable condition. He tolerated the procedure well. Geo Martino PA-C, was present for the entire procedure. He was critical for patient positioning, prepping, draping, retraction exposure, wound closure and application of sterile dressing. I attest to the content of the Intraoperative Record and any orders documented therein. Any exceptions are noted below.
[2022-08-02] MEDS ORDERED: GLYCOPYRROLATE 0.2 MG/ML VIAL ONE (10:07)
[2022-08-02] MEDS ORDERED: NEOSTIGMINE METHYLSULFATE 1 MG/ML 10ML VIAL ONE (10:07)
[2022-08-02] MEDS ORDERED: fentaNYL citrate PF 100 MCG/2 ML VIAL IV PRN (10:09)
[2022-08-02] MEDS ORDERED: ePHEDrine sulfate 50 MG/ML AMP IV PRN (10:09)
[2022-08-02] MEDS ORDERED: ATROPINE SULFATE 0.1 MG/ML 10ML SYR IV PRN (10:09)
[2022-08-02] MEDS ORDERED: ONDANSETRON INJ 2 MG/ML 2 ML VIAL IV PRN ×2 (10:09→11:07)
--- NOTE | 2022-08-02 10:14 | XRay Report ---
XR shoulder LT min 2V routine HISTORY: 77 years-old Male Post shoulder surgery left shoulder arthroplasty COMPARISON: 05/22/2022 TECHNIQUE: 2 views of the left shoulder FINDINGS: Satisfactory alignment of the reverse total joint arthroplasty. Overlying skin fabián are noted with out acute fracture or an expected opaque foreign body. IMPRESSION: Total joint arthroplasty with expected postoperative changes. ACT 112: Negative or not required by law. The above report was generated using voice recognition software. It may contain grammatical, syntax o r spelling errors. Electronically signed by: Rigoberto Castillo M.D. 08/02/2022 10:13 AM
--- NOTE | 2022-08-02 10:37 | Anesthesiology Progress Note ---
Date of Service August 02, 2022 Anesthesia Post Procedure Vital Signs Vital Signs: Temp Pulse Pulse Resp BP Pulse Ox O2 Del Method 08/02/22 10:00 54 L 16 105/61 98 Oxymask 08/02/22 09:52 98.1 F 62 16 108/69 97 Oxymask 08/02/22 06:04 Room Air 08/02/22 06:04 98.1 F 62 20 138/78 97 Room Air O2 Flow Rate 08/02/22 10:00 5 08/02/22 09:52 7 08/02/22 06:04 08/02/22 06:04 Pain Intensity Left Shoulder: Pain Intensity: 3 Transfer of Care Handoff Completed per policy Notes Mental Status: alert / awake / arousable and participated in evaluation Patient Amnestic to Procedure: Yes Nausea / Vomiting: adequately controlled Pain: adequately controlled and improving with treatment (armpit pain, block appears adequate in coverage) Airway Patency, RR, SpO2: stable & adequate BP & HR: stable & adequate Hydration State: stable & adequate Anesthetic Complications: no major complications apparent and Pt Satisfied with anesthetic care Notes: inverted T waves remains stable from preop telemetry printout
[2022-08-02] MEDS ORDERED: NALOXONE HCL 0.4 MG/1 ML VIAL/CARP IV PRN (11:07)
[2022-08-02] MEDS ORDERED: MAGNESIUM HYDROXIDE SUSP 30 ML UDC PO PRN (11:07)
[2022-08-02] MEDS ORDERED: bisacodyL 10 MG SUPP PR PRN (11:07)
[2022-08-02] MEDS ORDERED: HYDROmorphone INJ 0.5 MG/0.5 ML SYR IV PRN (11:07)
[2022-08-02] MEDS ORDERED: METOCLOPRAMIDE HCL INJ 5 MG/ML 2 ML VIAL IV PRN (11:07)
[2022-08-02] MEDS: SODIUM CHLORIDE 0.9% 1000ML 1,000 ML IV SCH (12:02)
[2022-08-02] MEDS: EZETIMIBE 10 MG TABLET PO SCH (12:02)
[2022-08-02] MEDS: KETOROLAC TROMETHAMINE 15 MG/ML VIAL IV SCH ×2 (12:03→18:21)
[2022-08-02] MEDS: DOCUSATE SODIUM 100 MG CAP PO SCH ×2 (12:03→20:33)
[2022-08-02] MEDS: lisinopril 2.5 MG TAB PO SCH (12:03)
[2022-08-02] MEDS: MULTIVITAMIN TAB PO SCH (12:03)
[2022-08-02] MEDS: ceFAZolin 2000MG 2,000 MG/15 ML SYR IV SCH (15:48)
[2022-08-02] MEDS: oxyCODONE HCL IR 5 MG TAB (IMMEDIATE RELEASE) PO PRN (20:32)
[2022-08-02] MEDS ORDERED: SENNA 8.6 MG TAB PO SCH (21:00)
[2022-08-02] MEDS ORDERED: ATORVASTATIN 40 MG TAB PO SCH (21:00)
[2022-08-02] MEDS ORDERED: FINASTERIDE 5 MG TAB PO SCH (21:00)
[2022-08-02] MEDS ORDERED: METOPROLOL SUCC 50MG EXT REL TAB PO SCH (21:00)
[2022-08-03] MEDS: ceFAZolin 2000MG 2,000 MG/15 ML SYR IV SCH (00:15)
[2022-08-03] MEDS: KETOROLAC TROMETHAMINE 15 MG/ML VIAL IV SCH ×2 (00:16→05:46)
[2022-08-03] MEDS: SODIUM CHLORIDE 0.9% 1000ML 1,000 ML IV SCH (06:56)
--- NOTE | 2022-08-03 07:13 | Orthopedic Progress Note ---
Date of Service August 03, 2022 Assessment & Plan (1) Status post reverse total replacement of left shoulder: Overall is doing very well. Is not having much pain in the left shoulder. He will be seen by physical therapy today for ambulation and range of motion exercises. He can be discharged home later today. He will follow-up with orthopedics in 2 weeks. Darwin Bond was seen and examined at bedside this morning. Overall he is doing fairly well. He is not having too much pain in the left shoulder. He was able to get some sleep last night. He has no complaints.. Review of Systems All systems reviewed & are unremarkable except as noted in HPI & below. Physical Exam On physical examination of the left shoulder, the dressing is clean and dry. He is wearing his sling as instructed. He has active motion of his hand and his wrist.. Results & Data Results & Data Laboratory Results . Diagnostic Findings Postoperative x-rays of the left shoulder show the prosthesis to be in anatomic alignment without any evidence of fracture, desiccation, or loosening.. PG Care Time/CCT Total # of Minutes Spent Total Time Spent with Patient: Total time spent is greater than 50% in coordination of care (as documented) at patient's floor/unit and/or counseling patient: Coding Level of Care Code 71291 Post Operative Follow-Up Diagnoses Status post reverse total replacement of left shoulder Z96.612
--- NOTE | 2022-08-03 07:14 | Discharge Summary ---
Date of Service August 03, 2022 Admission HPI (Per Admitting) Varun is a pleasant 77-year-old male who fell around [place]. He was having a pseudoparalysis of the left shoulder. He is starting to regain a little bit of range of motion. He saw my partner Dr. Zabala. He had an MRI of his left shoulder. The MRI showed a large retracted rotator cuff tear. He is having some pain at night. He is having trouble doing anything away from his body or up overhead. He has a history of right rotator cuff repair done 15 years ago and did well with that. After failing extensive conservative treatment, he has elected proceed with a left reverse shoulder arthroplasty.. Admission Exam (Per Admitting) On physical examination of the left shoulder, he has a pseudoparalysis. He only has about 30 degrees of forward elevation and 30 degrees of abduction. He has 3 out of 5 motor strength throughout.. Principal Diagnosis Same as "Discharge Diagnosis" noted below under Discharge Instructions. Discharge Exam On physical examination of the left shoulder, the dressing is clean and dry. He is wearing his sling as instructed. He has active motion of his hand and his wrist.. Discharge Data Procedures Performed Operation Date: 08/02/22 08:10 Actual Procedures p Left Reverse Total Shoulder Arthroplasty(Left) - Geo Cannon DO Ordered Studies 08/02/22 05:00 US - OR guided needle placemen Routine Hospital Course (1) Status post reverse total replacement of left shoulder: On August 02, 2022 Varun arrived at [facility] and underwent a left reverse shoulder replacement without complication. He had a general anesthetic and a left interscalene nerve block. Postoperatively he was placed in a sling and transferred to the general orthopedic floors. His hospital course was uneventful. On postop day #1, his vital signs were stable and his pain was well controlled. He was able to participate well with physical therapy doing ambulation and range of motion exercises. He was then discharged home. He will follow with orthopedics in 2 weeks. PG Care Time/CCT Total # of Minutes Spent Total Time Spent with Patient: Total time spent is greater than 50% in coordination of care (as documented) at patient's floor/unit and/or counseling patient: Discharge Plan Discharge Items Patient Disposition: Home - Home Health Services Reason For Visit: Degenerative Joint Disease Left Shoulder Discharge Diagnosis: Left reverse shoulder replacement Activity: Per Instructions section Non-emergency contact: Surgeon Call non-emergency contact if: your wound has increased redness and your wound has increased drainage Follow-up/Referrals: Raimundo Carson MD [Primary Care Provider] - Diet: Regular Addtl Attending Provider Instructions: Activity and Therapy Recommendations: * If you are using [facility] then therapy will be provided at your home until they feel you have accomplished all of your goals. * If you are using [facility] then Physical Therapy will be provided until they feel you are ready to start Outpatient Physical Therapy. * If you are not using home therapy then Outpatient Physical Therapy should start about 3-5 days from your day of surgery. Therapy will last about 8-12 weeks * Wear your sling for 3 weeks, unless otherwise instructed. You may remove your sling to shower and to dress, but otherwise, you should be in your sling at all times, including while sleeping * The shoulder replacement is very stable and you can use your hand while in the sling * You were shown a series of exercises in the hospital. Do these exercises daily including the exercises you were shown in physical therapy. Medications: * Narcotic You will likely be sent home from the hospital with a prescription for the narcotic pain medication that worked best throughout your stay. * Other medications may be prescribed for specific circumstances. If you have any questions, please call the office at . * Resume previous home medications unless otherwise instructed Dressing Care: Leave the Silverlon dressing in place for 7 days. After 7 days you may remove the dressing. If the incision is not draining then you may leave the fabián open to air. If there is a little bit of drainage or if the fabián are getting stuck on your clothing then cover the incision with a dry dressing. The fabián will be removed at your 2 week follow-up appointment. Showering: You may shower with the Silverlon dressing in place. Do not let the shower spray hit the dressing directly. Pat the Silverlon dressing dry. If the dressing becomes wet underneath, then simply remove the dressing. Keep the incision dry until you are 7 days out from the day of surgery. After 7 days you may remove the Silverlon dressing and shower with the fabián exposed. Let soapy water run over the fabián and pat them dry. Do not scrub or soak the incision. Things To Watch For: * Drainage from the incision site that occurs more than one week after your surgery. * Increased redness at the incision site. * Fever above 102 degrees Fahrenheit. * Unusual chest pain or shortness of breath. * Call [facility] at with any of the above problems Follow-Up Visit: Follow-up with Dr. Cannon's PA (Geo Martino) 2-3 weeks after your day of surgery. He will remove your fabián and answer any questions. If you have any additional questions or concerns, Dr Cannon is usually in the office at the same time and will be available An appointment was probably scheduled when you signed-up for surgery in the office. If you have any questions call More detailed instructions as well as Frequently Asked Questions were provided in a folder by our office when you signed-up for surgery. Please review these instructions when you get home. If you have any further questions or concerns, please feel free to call the office at [phone] Pending Studies at Discharge: No Stand-Alone Forms: My [facility] Medications and DC Order Prescriptions: New oxycodone-acetaminophen 5-325 mg tablet 1 tab PO Q6H PRN (Reason: pain) Qty: 30 0RF Continued ezetimibe [Zetia] 10 mg tablet 10 mg PO QAM Qty: 90 3RF lisinopril 2.5 mg tablet 2.5 mg PO QAM Qty: 90 3RF cholecalciferol (vitamin D3) 2,000 unit capsule 2,000 units PO QAM atorvastatin 80 mg tablet 80 mg PO HS Rx Instructions: TAKE 1 TABLET EVERY EVENING metoprolol succinate 50 mg tablet extended release 24 hr 50 mg PO HS acetaminophen 500 mg capsule 1,000 mg PO TID PRN (Reason: Pain) Rx Instructions: TAke 3 times per day to lessen pain. finasteride 5 mg tablet 5 mg PO QPM rivaroxaban 20 mg tablet 20 mg PO HS Discharge Orders: Discharge Order (Routine); Ordered 08/03/22 Ordered By: Geo Cannon Admission Data Admit Date/Time: 08/02/22 07:01 Attending Provider: Geo Cannon Admit Provider: Geo Cannon Primary Care Provider: Raimundo Carson
[2022-08-03] MEDS ORDERED: dexAMETHasone 4 MG TAB PO SCH (08:00)
[2022-08-03] MEDS: lisinopril 2.5 MG TAB PO SCH (08:18)
[2022-08-03] MEDS: EZETIMIBE 10 MG TABLET PO SCH (08:18)
[2022-08-03] MEDS: MULTIVITAMIN TAB PO SCH (08:18)
[2022-08-03] MEDS: DOCUSATE SODIUM 100 MG CAP PO SCH (08:18)
[2022-08-03] MEDS ORDERED: RIVAROXABAN 20 MG TAB PO SCH (09:00)
[2022-08-03] MEDS: oxyCODONE HCL IR 5 MG TAB (IMMEDIATE RELEASE) PO PRN (09:01)
== END 2022-08-03 11:20 | disposition home health service (06) | DRG 483 ==
LOC: ASU 05:43 → 3E 07:01

== ENCOUNTER 2024-03-02 07:36 | Observation (INO) ==
--- NOTE | 2024-01-04 12:51 | PAT Medication Instructions ---
Medication Instructions Date of Service January 04, 2024 Home Medications Medication Instructions Recorded lisinopril 2.5 mg tablet 2.5 mg PO QAM #90 tabs 03/07/23 metoprolol succinate 50 mg 50 mg PO HS #90 tabs 03/07/23 tablet,extended release 24 hr ezetimibe 10 mg tablet (Zetia) 10 mg PO QAM #90 tabs 03/29/23 rivaroxaban 20 mg tablet 20 mg PO HS #90 tabs 04/05/23 cholecalciferol (vitamin D3) 50 mcg (2,000 unit) capsule 2,000 units PO QAM acetaminophen 500 mg capsule 1,000 mg PO TID PRN Pain lisinopril 2.5 mg tablet 2.5 mg PO QAM metoprolol succinate 50 mg tablet,extended release 24 hr 50 mg PO HS ezetimibe 10 mg tablet (Zetia) 10 mg PO QAM rivaroxaban 20 mg tablet 20 mg PO HS atorvastatin 80 mg tablet 80 mg PO QPM finasteride 5 mg tablet 5 mg PO HS ASK your prescriber and surgeon rivaroxaban 20 mg tablet 20 mg PO HS DO NOT take the morning of surgery cholecalciferol (vitamin D3) 50 mcg (2,000 unit) capsule 2,000 units PO QAM lisinopril 2.5 mg tablet 2.5 mg PO QAM Take morning of surgery With a small sip of water, OTHERWISE NOTHING TO EAT OR DRINK AFTER MIDNIGHT: acetaminophen 500 mg capsule 1,000 mg PO TID PRN Pain (if needed) ezetimibe 10 mg tablet (Zetia) 10 mg PO QAM Take evening before surgery acetaminophen 500 mg capsule 1,000 mg PO TID PRN Pain (if needed) metoprolol succinate 50 mg tablet,extended release 24 hr 50 mg PO HS atorvastatin 80 mg tablet 80 mg PO QPM finasteride 5 mg tablet 5 mg PO HS Other Notes If you have any questions please call us at [phone] or [phone] or [phone] or [phone]
--- NOTE | 2024-01-11 14:47 | Anesthesiology Consultation ---
Date of Service January 11, 2024 Assessment & Plan (1) Encounter for pre-operative examination: - awaiting 12/29/23 EKG tracing and most recent office note from [facility] Dr. Gerardo Khan. - cardiology office visit 04/05/23 [place]: "... Atrial arrhythmias...appears to be doing quite well after his last ablation performed in June 2018. no clinical recurrence of any arrhythmia. Will continue him on systemic anticoagulation. Renal function is normal...appropriately dosed Xarelto. use of BiPAP likely helps as well. Coronary artery disease...Catheterization in 2013 revealed occlusion of the left circumflex distal to OM1, non occlusive disease in the LAD and diffuse RCA disease. no current symptoms suggestive of coronary insufficiency or angina. He will continue on high-dose atorvastatin, Xarelto, Zetia and metoprolol. Cardiomyopathy: Most recent echocardiogram demonstrates preserved LV systolic function. No current symptoms..." - Outpatient joint assessment: Patient is currently scheduled for inpatient pathway. If re-evaluated and patient/surgeon requests outpatient pathway, patient is not advised candidate for outpatient joint program from anesthesia standpoint, his also expresses she is more comfortable if he remains overnight. Chart Review Chart Review: Pending: Refer to Additional Notes / Consult section and Patient seen in Pre Admission Testing Teaching & Discussion Pre-Anesthesia Teaching/Discussion Notes: Instructed NPO after midnight before surgery, except medications with 15 cc of water. Medication instructions provid ed according to the PAT guidelines. History Surgery Operation Date: 02/13/24 10:20 Proposed Procedures p Right Reverse Total Shoulder Arthroplasty - Geo Cannon DO Height/Weight Height: 5 ft 8 in Weight: 107.3 kg Allergies Allergy/AdvReac Type Severity Reaction Status Date / Time No Known Allergies Allergy Verified 01/03/24 14:37 Medications Home Medications Medication Instructions Recorded Confirmed Last Taken cholecalciferol (vitamin D3) 50 2,000 units PO QAM 02/13/19 01/03/24 07/26/22 mcg (2,000 unit) capsule acetaminophen 500 mg capsule 1,000 mg PO TID PRN Pain 06/25/22 01/03/24 08/01/22 21:00 lisinopril 2.5 mg tablet 2.5 mg PO QAM #90 tabs 03/07/23 01/03/24 Unknown metoprolol succinate 50 mg 50 mg PO HS #90 tabs 03/07/23 01/03/24 Unknown tablet,extended release 24 hr ezetimibe 10 mg tablet (Zetia) 10 mg PO QAM #90 tabs 03/29/23 01/03/24 Unknown rivaroxaban 20 mg tablet 20 mg PO HS #90 tabs 04/05/23 01/03/24 Unknown atorvastatin 80 mg tablet 80 mg PO QPM 01/03/24 01/03/24 Unknown finasteride 5 mg tablet 5 mg PO HS 01/03/24 01/03/24 Unknown Past Medical History Medical History (Updated 01/11/24 @ 14:48 by Shanon Marsh PA-C) Arthritis Atrial fibrillation Follows with [place] cardiology every 6 months and [facility] annually Atrial flutter follows with Dr. Leo>reason for xarelto BPH with obstruction/lower urinary tract symptoms pt denies current concerns/issues s/p TURP Cardiomyopathy Tachycardia mediated CM- resolved EF 50-55% Coronary artery disease Catheterization 2013, occluded left circumflex after OM 1, 50-60% lad lesion, diffuse right coronary disease-no stents Hyperlipidemia Hypertension controlled, stable per pt Pulmonary hypertension Moderate per 11/2020 echo, RVSP 40-50 mmHg Sleep apnea Bipap-nightly Solitary pulmonary nodule monitoring Patient denies h/o stroke, seizures, DM, blood clots/DVTs or blood transfusions. Exercise / Class Metabolic Activity II 4-5 Yardwork/Stairs/Walk up hill (denies chest discomfort or shortness of breath with one flight of stairs) Past Family History Family History Father , Age 89 Cardiac disorder Myocardial infarction Stroke Mother Cardiac disorder Cancer Hypertension Other Diabetes Heart disease No family history of adverse response to anesthesia No family history of bleeding disorder Denies family history of Ovarian cancer Prostate cancer Breast cancer Colorectal cancer Past Surgical History Surgical History (Updated 01/11/24 @ 14:49 by Shanon Marsh PA-C) H/O cardiac radiofrequency ablation multiple x's> last one 2018 at [facility] in [facility] History of Achilles tendon repair right History of arthroscopy of knee right/left knee History of cardiac cath before 2019 ? year, no stents, [employer] [facility]; f/u shanelle [place] History of cardioversion History of colonoscopy History of nasal septoplasty History of rotator cuff surgery right History of tonsillectomy History of tooth extraction wisdom History of total left knee replacement (TKR) 07/27/21 SAB at L3-L4 1 attempt + PNB. History of total replacement of left shoulder joint History of transurethral resection of prostate Greenlight laser Past Anesthesia History No Hx of Anesthesia Complications and No Family Hx of Anesthesia Complications History of PONV No Hx of PONV and No Hx of Motion Sickness Social History Smoking Status: Former smoker tobacco type: cigarettes Do You Dip or Chew Tobacco: No Smoking End Date: at age 41 Hx Alcohol Use: Yes Alcohol type: beer and wine alcohol intake frequency: holidays/special occasions only Hx Substance Use: No substance use type: does not use Review of Systems Patient denies chest pain, shortness of breath, dyspnea on exertion, reflux, fever, chills, cough, wheezing, or palpitations. Physical Exam Vital Signs Vitals BP 126/88 P 62 TEMP 98.2 SP02 94% on RA RESP 18 Physical Patient resting comfortably in chair in no acute distress, alert and oriented, responding appropriately throughout visit Full cervical extension range of motion without pain TMD 3.5 finger breadths Mallampati Score 3 Dentition: several caps/crowns; denies chipped or loose teeth, caps/crowns, implants or bridges Lungs: normal respiratory effort. Good air movement, clear throughout to auscultation, no adventitious breath sounds Cardiac: regular rate and rhythm, no murmurs noted Carotid arteries: negative bruit bilat Lab Results Anesthesia Preop Results Results Anesthesia Widget: WBC 8.68 K/ul (4.8-10.8) 01/11/24 Hgb 14.6 g/dl (14.0-18.0) 01/11/24 Hct 44.7 % (42.0-52.0) 01/11/24 Plt 165 K/uL (130-400) 01/11/24 Na 139 mmol/L (136-145) 01/11/24 K 4.6 mmol/L (3.5-5.1) 01/11/24 Cl 105 mmol/L (98-107) 01/11/24 CO2 29 mmol/L (21-32) 01/11/24 BUN 21 mg/dl (6-23) 01/11/24 Creat 1.05 mg/dl (0.6-1.4) 01/11/24 Glucose Level 107 mg/dl (70-99(Fasting)) H 01/11/24 PT 11.5 Seconds (9.0-12.0) 01/11/24 PTT 32 Seconds (21-31) H 01/11/24 INR 1.1 (0.9-1.1) 01/11/24 Blood Type O Negative 01/11/24 Antibody Screen NEGATIVE 01/11/24 Testing Chest X-Ray Date: 01/11/24 No acute process. Echocardiogram Date: 03/14/23 EF 55-60% Normal LV wall motion Moderate cLVH Moderately dilated LA Moderate aortic sclerosis Mild mitral regurgitation
--- NOTE | 2024-02-09 10:19 | History & Physical Report ---
Date of Service February 09, 2024 Assessment & Plan (1) Rotator cuff arthropathy of right shoulder: We will proceed with a right reverse shoulder arthroplasty. Postoperatively he will be placed in a sling and kept overnight in the hospital for postop medical management. He plans to use energy physical therapy after discharge. History of Present Illness Chief Complaint: Cuff tear arthropathy of the right shoulder. Primary Care Provider: Melodie Pearl DO Varun is a pleasant 78-year-old male who I did a left reverse shoulder arthroplasty on about 15 months ago. He has done well with that. Unfortunately, he has been dealing with increasing right shoulder pain. X-rays and clinical examination have been diagnostic for cuff tear arthropathy of the r ight shoulder. After failing extensive conservative treatment, he has elected proceed with a right reverse shoulder arthroplasty. Allergies Allergy/AdvReac Type Severity Reaction Status Date / Time No Known Allergies Allergy Verified 01/03/24 14:37 Home Medications Medication Instructions Recorded Confirmed Type cholecalciferol (vitamin D3) 50 2,000 units PO QAM 02/13/19 01/03/24 History mcg (2,000 unit) capsule acetaminophen 500 mg capsule 1,000 mg PO TID PRN Pain 06/25/22 01/03/24 History lisinopril 2.5 mg tablet 2.5 mg PO QAM #90 tabs 03/07/23 01/03/24 Rx metoprolol succinate 50 mg 50 mg PO HS #90 tabs 03/07/23 01/03/24 Rx tablet,extended release 24 hr ezetimibe 10 mg tablet (Zetia) 10 mg PO QAM #90 tabs 03/29/23 01/03/24 Rx rivaroxaban 20 mg tablet 20 mg PO HS #90 tabs 04/05/23 01/03/24 Rx atorvastatin 80 mg tablet 80 mg PO QPM 01/03/24 01/03/24 History finasteride 5 mg tablet 5 mg PO HS 01/03/24 01/03/24 History Past Med/Surg History Problem List Rotator cuff arthropathy of right shoulder Rotator cuff arthropathy of left shoulder Mitral regurgitation Status post reverse total replacement of left shoulder (~07/2022) Encounter for pre-operative examination BPH with obstruction/lower urinary tract symptoms Achilles tendinitis, right leg Status post total left knee replacement Cirrhosis abdominal US 07/2023 demonstrates hepatic cyst with no indication of cirrhosis at that time Bilateral primary osteoarthritis of knee Cardiomyopathy (Chronic) Coronary artery disease, occlusive (Chronic) Hyperlipidemia (Chronic) Hypertension (Chronic) Obstructive sleep apnea (Chronic) Paroxysmal atrial fibrillation (Chronic) Paroxysmal atrial flutter (Chronic) Medical History Arthritis Pulmonary hypertension Moderate per 11/2020 echo, RVSP 40-50 mmHg Hyperlipidemia Hypertension controlled, stable per pt Sleep apnea Bipap-nightly BPH with obstruction/lower urinary tract symptoms pt denies current concerns/issues s/p TURP Cardiomyopathy Tachycardia mediated CM- resolved EF 50-55% Coronary artery disease Catheterization 2013, occluded left circumflex after OM 1, 50-60% lad lesion, diffuse right coronary disease-no stents Atrial flutter follows with Dr. Willard>reason for xarelto Atrial fibrillation Follows with [place] cardiology every 6 months and [facility] annually Solitary pulmonary nodule monitoring Surgical History History of total replacement of left shoulder joint History of nasal septoplasty H/O cardiac radiofrequency ablation multiple x's> last one 2018 at [facility] in [facility] History of total left knee replacement (TKR) 07/27/21 SAB at L3-L4 1 attempt + PNB. History of cardiac cath before 2019 ? year, no stents, [employer]; f/u dr [place], [place] History of cardioversion History of tooth extraction wisdom History of tonsillectomy History of transurethral resection of prostate Greenlight laser History of rotator cuff surgery right History of Achilles tendon repair right History of arthroscopy of knee right/left knee History of colonoscopy Family History Father , Age 89 Cardiac disorder Myocardial infarction Stroke Mother Cardiac disorder Cancer Hypertension Other Diabetes Heart disease No family history of adverse response to anesthesia No family history of bleeding disorder Denies family history of Ovarian cancer Prostate cancer Breast cancer Colorectal cancer Social History Smoking Status: Former smoker Tobacco Type: Cigarettes Age Started Using Tobacco: 21; Age Quit Using Tobacco: 40; Second Hand Exposure: No; Do You Dip or Chew Tobacco: No; Hx Alcohol Use: Yes Alcohol type: beer and wine Alcohol Intake Frequency: 2-3 x/Week Hx Substance Use: No Preferred Language: Wolof Communication Ability: Effective Visual Impairment: Partially Limited Hearing Ability: Use of Hearing Aid Tool Room Lathe Operator Required: No Beliefs That Will Affect Care: None marital status: Current Living Situation: Spouse Current Living Situation Comment: current occupational status: retired How many Children do You have: 4 Feels Safe at Home: Yes Childhood Exposure to Second-Hand Smoke: No Diet: regular caffeine: Yes (coffee) during the past year weight has: remained stable Dental Care, Regularly: Yes Physical Activity Frequency: 5-6 Times per Week Seatbelt Use: always Sunscreen Use: Yes Assistive Devices: BiPap and Glasses Review of Systems All systems reviewed & are unremarkable except as noted in HPI & below. Physical Exam On physical examination of the right shoulder, he has decreased range of motion weakness throughout.. Constitutional WD/WN, vitals as above Eyes PERRL, conjunctivae normal, anicteric sclerae ENMT external ear and nose normal, oropharynx normal Neck trachea midline, no thyromegaly Respiratory normal respiratory effort Cardiovascular RRR, no murmur, no edema Gastrointestinal (Abdomen) normal bowel sounds, soft, nontender, no hepatosplenomegaly Psychiatric A+Ox3, euthymic affect Results & Data Results & Data Laboratory Results . Diagnostic Findings X-rays of the right shoulder show some superior migration of the humeral head on the glenoid. There is mild glenohumeral arthritis.. PG Care Time/CCT Total # of Minutes Spent Total Time Spent with Patient: Total time spent is greater than 50% in coordination of care (as documented) at patient's floor/unit and/or counseling patient: Coding Level of Care Code None Diagnoses Rotator cuff arthropathy of right shoulder M12.811
--- NOTE | 2024-03-01 10:31 | History & Physical Report ---
Date of Service March 01, 2024 Assessment & Plan (1) Rotator cuff arthropathy of right shoulder: We will proceed with a right reverse shoulder arthroplasty. Postoperatively he will be placed in a sling and kept overnight in the hospital for postop medical management. He plans to use energy physical therapy upon discharge. History of Present Illness Chief Complaint: Cuff tear arthropathy of the right shoulder. Primary Care Provider: Melodie Pearl DO Varun is a pleasant 78-year-old male who I did a left reverse shoulder arthroplasty on about 15 months ago. He has done well with that. Unfortunately, he has been dealing with increasing right shoulder pain. 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 After failing extensive conservative treatment, he has elected to proceed with a right reverse shoulder arthroplasty. Allergies Allergy/AdvReac Type Severity Reaction Status Date / Time No Known Allergies Allergy Verified 01/03/24 14:37 Home Medications Medication Instructions Recorded Confirmed Type cholecalciferol (vitamin D3) 50 2,000 units PO QAM 02/13/19 01/03/24 History mcg (2,000 unit) capsule acetaminophen 500 mg capsule 1,000 mg PO TID PRN Pain 06/25/22 01/03/24 History lisinopril 2.5 mg tablet 2.5 mg PO QAM #90 tabs 03/07/23 01/03/24 Rx metoprolol succinate 50 mg 50 mg PO HS #90 tabs 03/07/23 01/03/24 Rx tablet,extended release 24 hr ezetimibe 10 mg tablet (Zetia) 10 mg PO QAM #90 tabs 03/29/23 01/03/24 Rx rivaroxaban 20 mg tablet 20 mg PO HS #90 tabs 04/05/23 01/03/24 Rx atorvastatin 80 mg tablet 80 mg PO QPM 01/03/24 01/03/24 History finasteride 5 mg tablet 5 mg PO HS 01/03/24 01/03/24 History Past Med/Surg History Problem List Rotator cuff arthropathy of right shoulder Rotator cuff arthropathy of left shoulder Mitral regurgitation Status post reverse total replacement of left shoulder (~07/2022) Encounter for pre-operative examination BPH with obstruction/lower urinary tract symptoms Achilles tendinitis, right leg Status post total left knee replacement Cirrhosis abdominal US 07/2023 demonstrates hepatic cyst with no indication of cirrhosis at that time Bilateral primary osteoarthritis of knee Cardiomyopathy (Chronic) Coronary artery disease, occlusive (Chronic) Hyperlipidemia (Chronic) Hypertension (Chronic) Obstructive sleep apnea (Chronic) Paroxysmal atrial fibrillation (Chronic) Paroxysmal atrial flutter (Chronic) Medical History Arthritis Pulmonary hypertension Moderate per 11/2020 echo, RVSP 40-50 mmHg Hyperlipidemia Hypertension controlled, stable per pt Sleep apnea Bipap-nightly BPH with obstruction/lower urinary tract symptoms pt denies current concerns/issues s/p TURP Cardiomyopathy Tachycardia mediated CM- resolved EF 50-55% Coronary artery disease Catheterization 2013, occluded left circumflex after OM 1, 50-60% lad lesion, diffuse right coronary disease-no stents Atrial flutter follows with Dr. Willard>reason for xarelto Atrial fibrillation Follows with [place] cardiology every 6 months and [facility] annually Solitary pulmonary nodule monitoring Surgical History History of total replacement of left shoulder joint History of nasal septoplasty H/O cardiac radiofrequency ablation multiple x's> last one 2018 at [facility] in [facility] History of total left knee replacement (TKR) 07/27/21 SAB at L3-L4 1 attempt + PNB. History of cardiac cath before 2019 ? year, no stents, [facility] [place]; f/u dr willard, [place] History of cardioversion History of tooth extraction wisdom History of tonsillectomy History of transurethral resection of prostate Greenlight laser History of rotator cuff surgery right History of Achilles tendon repair right History of arthroscopy of knee right/left knee History of colonoscopy Family History Father , Age 89 Cardiac disorder Myocardial infarction Stroke Mother Cardiac disorder Cancer Hypertension Other Diabetes Heart disease No family history of adverse response to anesthesia No family history of bleeding disorder Denies family history of Ovarian cancer Prostate cancer Breast cancer Colorectal cancer Social History Smoking Status: Former smoker Tobacco Type: Cigarettes Age Started Using Tobacco: 21; Age Quit Using Tobacco: 40; Smoking End Date: at age 41; Second Hand Exposure: No; Do You Dip or Chew Tobacco: No; Hx Alcohol Use: Yes Alcohol type: beer and wine Alcohol Intake Frequency: 2-3 x/Week Hx Substance Use: No Preferred Language: Persian Communication Ability: Effective Visual Impairment: Partially Limited Hearing Ability: Use of Hearing Aid Steam Gigger Required: No Beliefs That Will Affect Care: None marital status: Current Living Situation: Spouse Current Living Situation Comment: current occupational status: retired How many Children do You have: 4 Feels Safe at Home: Yes Safety Concerns: Feels Safe At This Time Childhood Exposure to Second-Hand Smoke: No Diet: regular caffeine: Yes (coffee) during the past year weight has: remained stable Dental Care, Regularly: Yes Physical Activity Frequency: 5-6 Times per Week Seatbelt Use: always Sunscreen Use: Yes Assistive Devices: BiPap and Glasses Assistive Devices Comment: reading glasses Review of Systems All systems reviewed & are unremarkable except as noted in HPI & below. Physical Exam On physical examination of the right shoulder, he has decreased range of motion and weakness throughout.. Constitutional WD/WN, vitals as above Eyes PERRL, conjunctivae normal, anicteric sclerae ENMT external ear and nose normal, oropharynx normal Neck trachea midline, no thyromegaly Respiratory normal respiratory effort, lungs clear to auscultation Cardiovascular RRR, no murmur, no edema Gastrointestinal (Abdomen) normal bowel sounds, soft, nontender, no hepatosplenomegaly Skin no rashes, warm and dry Psychiatric A+Ox3, euthymic affect Results & Data Results & Data Laboratory Results . Diagnostic Findings X-rays of the right shoulder show signs of cuff tear arthropathy with some superior migration of the humeral head of the glenoid.. PG Care Time/CCT Total # of Minutes Spent Total Time Spent with Patient: Total time spent is greater than 50% in coordination of care (as documented) at patient's floor/unit and/or counseling patient: Coding Level of Care Code None Diagnoses Rotator cuff arthropathy of right shoulder M12.811
[~2024-03-02 07:36] MED LIST changes: +BUPIVACAINE 0.5 % 5 MG/1 ML PF 10ML VIAL ONE; -BUPIVACAINE LIPOSOME/PF 266 MG, BUPIVACAINE/EPINEPHRINE 50 ML, SODIUM CHLORIDE 0.9% 30 ... INFIL SCH; +LR 15ML/HR IV SCH; -LR 500ML BOLUS, THEN 15ML/HR IV SCH; -METOCLOPRAMIDE HCL 10 MG TABLET PO SCH; +ROPIV 0.5% 246mg, Ketorolac 30mg, EPINEPHrine 0.5mg in NSS INFIL SCH; +TRANEXAMIC ACID 1,000 MG **IV Pre-op IV SCH; +dexAMETHasone**PF** 10 MG/ML VIAL IV SCH
[2024-03-02] MEDS: ACETAMINOPHEN 500 MG TAB PO SCH ×2 (08:50→15:43)
[2024-03-02] MEDS: GABAPENTIN 300 MG CAP PO SCH (08:50)
[2024-03-02] MEDS: dexAMETHasone**PF** 10 MG/ML VIAL IV SCH (08:50)
[2024-03-02] MEDS: LR 15ML/HR IV SCH (08:50)
[2024-03-02] MEDS: LR 60ML/HR IV SCH (08:50)
[2024-03-02] MEDS: FAMOTIDINE 20 MG TAB PO SCH (08:50)
[2024-03-02] MEDS ORDERED: LIDOCAINE 2% 2 ML VIAL/AMP(20MG/ML) INFIL ONE (09:04)
[2024-03-02] MEDS ORDERED: ONDANSETRON INJ 2 MG/ML 2 ML VIAL ONE (09:04)
[2024-03-02] MEDS ORDERED: MIDAZOLAM HCL 1 MG/ML 2ML VIAL ONE (09:04)
[2024-03-02] MEDS ORDERED: DEXAMETHASONE SOD INJ 4 MG/ML VIAL ONE (09:04)
[2024-03-02] MEDS ORDERED: PROPOFOL IV EMULSION 10 MG/ML 20 ML VIAL IV ONE (09:04)
[2024-03-02] MEDS ORDERED: fentaNYL citrate PF 100 MCG/2 ML VIAL ONE (09:04)
[2024-03-02] MEDS ORDERED: ATROPINE SULFATE 0.1 MG/ML 10ML SYR IV PRN (09:09)
[2024-03-02] MEDS ORDERED: ePHEDrine sulfate 50 MG/ML AMP IV PRN (09:09)
[2024-03-02] MEDS ORDERED: HYDROmorphone INJ 1 MG/ML SYRINGE IV PRN (09:09)
[2024-03-02] MEDS ORDERED: ONDANSETRON INJ 2 MG/ML 2 ML VIAL IV PRN ×2 (09:09→14:16)
[2024-03-02] MEDS ORDERED: fentaNYL citrate PF 100 MCG/2 ML VIAL IV PRN (09:09)
--- NOTE | 2024-03-02 09:14 | History & Physical Bridge Note ---
Date of Service March 02, 2024 History & Physical Bridge Note I have examined the patient, reviewed the History & Physical and in the interval since the performance of the History & Physical I have noted the following changes of clinical significance: no changes noted
[2024-03-02] MEDS: TRANEXAMIC ACID 1,000 MG **IV Pre-op IV SCH (09:58)
[2024-03-02] MEDS: ceFAZolin 2000MG 2,000 MG/15 ML SYR IV SCH ×2 (10:08→17:15)
[2024-03-02] MEDS: ROPIV 0.5% 246mg, Ketorolac 30mg, EPINEPHrine 0.5mg in NSS INFIL SCH (10:48)
[2024-03-02] MEDS: ORTHO JOINT ANESTHETIC ONE (10:48)
[2024-03-02] MEDS: TRANEXAMIC ACID 1,000 MG **IV Intra-op IV SCH (11:13)
--- NOTE | 2024-03-02 11:13 | Operative Report ---
PG Post Operative Report Pre & Post Diagnosis Operation Date: 03/02/24 10:00 Pre-Op Diagnosis: Cuff tear arthropathy of the right shoulder Post-Op Diagnosis: Cuff tear arthropathy of the right shoulder I identified the patient and participated in the time-out.: Yes Procedure Operation Date: 03/02/24 10:00 Actual Procedures p Right Reverse Total Shoulder Arthroplasty(Right) - Geo Cannon DO Surgeon Geo Cannon DO Sign Builder Supervisor Geo Martino PA-C Estimated Blood Loss 200 Findings Consistent with Post-Op Diagnosis Specimens Right humeral head Description of Procedure Implants used: I used a [employer]omet Comprehensive reverse total shoulder arthroplasty system with a size 18 press fit micro humeral stem, a +6 offset humeral tray and a standard humeral bearing, a 25 mm small augment baseplate with a 6.5 mm central screw and superior and inferior locking screws, and a size 40 mm eccentric glenosphere. Varun arrived at [facility] for the above procedure. He was seen in the preoperative holding area and the operative extremity was identified and signed. He was given a preoperative antibiotic, TXA, and an interscalene nerve block. He was taken back to the operating room, laid on table in supine position, and put under general anesthesia. He was then put into the beachchair position. The shoulder was then prepped and draped in sterile fashion. A timeout was done and the patient and the operative extremity was properly identified. A deltopectoral approach was used. Dissection was taken down through the fascia and the deltoid was retracted laterally and the conjoined tendon was retracted medially. The anterior shoulder was exposed. The biceps tendon was chronically torn. The subscapularis was then directly released off the lesser tuberosity with a peel technique. The inferior capsule was released and the humeral head was dislocated. A canal finding reamer was sent down the center of the humeral canal. Sequential reaming up to a size 18 reamer was done. Off that reamer, a proximal humeral resection guide was placed. The proximal humerus was resected at 135 of inclination and 25 of retroversion. Osteophytes were then removed and the glenoid was exposed. Time was spent doing a complete capsular and labral release. The glenoid guide was then placed in the inferior aspect of the glenoid. A 3.2 mm Steinmann pin was then placed into the glenoid vault at 10 of inclination. The glenoid baseplate was then reamed. The final size 25 mm small augment basep late was then impacted in the place. A 6.5 mm central screw was then placed followed by superior and inferior locking screws. A 40 mm eccentric glenosphere was then impacted into place. Surrounding soft tissues were then injected with 100 cc an orthopedic pain control cocktail. The proximal humerus was then exposed. Sequential broaching of the humerus up to a size 18 broach was done. Off that broach a +6 offset humeral tray was trialed. The shoulder was then reduced, brought through a full range of motion, and felt to be stable. The shoulder was then dislocated and the broach was removed. The final size 18 micro press-fit humeral stem was then impacted into place. A standard humeral bearing was then snapped onto a +6 offset humeral tray. The humeral tray was then impacted onto the humeral stem. The shoulder was once again reduced, brought through a full range of motion, and felt to be stable. The subscapularis was poor quality and unable to be repaired. A dilute betadyne lavage was then done for 3 minutes. The joint was then irrigated with normal saline solution. Hemostasis was obtained. The interval was closed with 2-0 Vicryl suture. The skin was then closed with 2-0 Vicryl and fabián. A Silverlon dressing was placed and the arm was rested in a regular arm sling. He was then extubated and transferred to a hospital bed. He taken to the postanesthesia care unit in stable condition. He tolerated the procedure well. Geo Martino PA-C, was present for the entire procedure. He was critical for patient positioning, prepping, draping, retraction exposure, wound closure and application of sterile dressing. I attest to the content of the Intraoperative Record and any orders documented therein. Any exceptions are noted below.
[2024-03-02] MEDS ORDERED: SUGAMMADEX SODIUM 200 MG/2 ML VIAL IV ONE (11:14)
--- OUTSIDE RECORDS SUMMARY | 2024-03-02 11:23 | External Medical Summary | Continuity of Care Document ---
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 [address] [place], [place] [id number] Encounter Diagnosis Actinic keratoses(Discharge Diagnosis) - 01/23/24 Seborrheic keratoses(Discharge Diagnosis) - 01/23/24 Congenital nevus(Discharge Diagnosis) - 01/23/24 Discharge Disposition: Home or Self Care Attending Physician: MIKE Muhammad Dawn M Referring Physician: MIKE Muhammad Dawn M Allergies, Adverse Reactions, Alerts No Known Allergies Assessment and Plan Extracted from: Title:Dermatology Office Visit Note Author:Timmy holley PA-C, Dawn M Date:01/23/24 1.Actinic keratoses chronic and improved.ACTINIC KERATOSES - discussed precancerous potential of these lesions and reviewed options for watchful waiting with judicious sun protection vs cryotherapy. Prefers watchful waiting as has a surgery in < 1month. 2.Seborrheic keratoses chronic and stable -SEBORRHEIC KERATOSES - discussed the likely benign and genetic nature of these lesions._ watchful waiting. 3.Congenital nevus - chronic and stable -watchful waiting. Reviewed sun protection with SPF 30 or higher applied every 80 minutes and use of sun protective clothing and hat. Call with questions or concerns. Follow up6 months. Patient in agreement with plan. Medications atorvastatin 80 mg oral tablet Start: 07/07/20 9:07:00 AM EST, 1 tab, PO, Daily Start Date: 07/07/20 Status: Ordered Efudex 5% topical cream Start: 08/09/23 2:02:00 PM EDT, 1 appl, topical, bid, Disp# 40 g, Refills: 1, to forehead, temples, cheeks to jawline, Pharmacy: [id number] Start Date: 08/09/23 Status: Ordered finasteride 5 mg oral tablet Start: 07/03/14 1:35:00 PM EST, 1 tab, PO, Daily Start Date: 07/03/14 Status: Ordered lisinopril 2.5 mg oral tablet Start: 07/07/20 9:06:00 AM EST Start Date: 07/07/20 Status: Ordered Toprol-XL 25 mg oral tablet, extended release Start: 06/30/17 8:34:00 AM EST, 1 tab, Daily Start Date: 06/30/17 Status: Ordered triamcinolone 0.1% topical cream Start: 07/15/23 9:43:00 AM EST, 1 appl, topical, bid, Disp# 80 g, Refills: 3, apply to arms, legs, trunk, Pharmacy: [facility] Start Date: 07/15/23 Status: Ordered Vitamin D3 Start: 07/04/19 9:04:00 AM EST, 50 mcg =, Daily Start Date: 07/04/19 Status: Ordered Xarelto 20 mg oral tablet Start: 07/03/14 1:36:00 PM EST, 1 tab, PO, qPM Start Date: 07/03/14 Status: Ordered Zetia 10 mg oral tablet Start: 07/04/19 9:03:00 AM EST, 1 tab, PO, Daily Start Date: 07/04/19 Status: Ordered Mental Status 01/23/24 Barriers to Learning one year None evide nt Mandatory Health Literacy Documentation Yes Communication Barrier Present No Health Literacy Communication Barriers N ever Primary Language Sammarinese Problem List Condition Confirmation Course Effective Dates Status Health St atus Informant AK (actinic keratosis) Confirmed Active Lipoma Confirmed Active BPH Confirmed Active Dyslipidemia Confirmed 03/03/05 Active Elevated cholesterol Confirmed Active FAMILY HISTORY OF OTHER SPECIFIED MALIGNANT NEOPLASM 1 Confirmed Active Hypertension Confirmed Active 1father, unknown type Diagnosis Diagnosis Type Effective Dates Health Status Clinical Service Informant Actinic keratoses Discharge Diagnosis 01/23/24 Seborrheic keratoses Discharge Diagnosis 01/23/24 Congenital nevus Discharge Diagnosis 01/23/24 Procedures Procedure Date Related Diagnosis Body Site Status Total left shoulder replacement 07/2022 Completed Knee replacement 07/27/21 Complete d Excision of lipoma 09/16/15 Comple gomez Procedure 1 Completed Procedure 2 Completed 1heart ablasion 2018 2bilateral knee repair and shoulder repairs in remote Social History Social History Type Response Smoking Status Former Smoker, quit > 1 yr Sex Male Sex Representation Male (finding) Dermatology Outpatient Note * MIKE Muhammad, Monica Landrum: PERFORM Event Display: Dermatology Outpt Note Authored Date: [id number] Chief Complaint follow up History of Present Illness JAJA MAYNARD [id number] old patient returning today with a chief complaint ofskin check with history of AK. The patient feels the condition is improved after Efudex 08/09/23. Hedeniesitching, bleeding, oozing, crusting or evolving lesions. Patient hasno past personal history of skin cancer: Patient uses sunscreen. 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 Now barrow Shoulder surgery 02/08 Review of Systems Denies fever, chills, sweats, night sweats, weight loss, headache, visual change, stomach upset diarrhea and joint pain. Physical Exam _Constitutional: Generally well appearing, well developed. Appears stated age. Eyes: Conjunctivae and lids without noted inflammation, lesion, mass, deformity or drainage. Cardiovascular: Swelling of the lower extremities not noted. Extremities pink, warm and dry. Extremities: Digits and nails without clubbing, cyanosis, petechiae, signs of ischemia, infectionor inflammation. Neurological / Psychiatric: Oriented to person, place and time. Appropriate mood and affect. No notable depression, anxiety or agitation. Complete skin exam was performed today including head, neck, chest, axillae, abdomen, back, bilateral upper and bilateral lower extremities. Palpation of the scalp, inspection of hair of scalp, eyebrows and finger and toenails was performed. 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 Assessment/Plan 1.Actinic keratoses chronic and improved.ACTINIC KERATOSES - discussed precancerous potential of these lesions and reviewed options for watchful waiting with judicious sun protection vs cryotherapy. Prefers watchful waiting as has a surgery in < 1month. 2.Seborrheic keratoses chronic and stable -SEBORRHEIC KERATOSES - discussed the likely benign and genetic nature of these lesions._ watchful waiting. 3.Congenital nevus - chronic and stable -watchful waiting. Reviewed sun protection with SPF 30 or higher applied every 80 minutes and use of sun protective clothing and hat. Call with questions or concerns. Follow up6 months. Patient in agreement with plan. Problem List/Past Medical History Ongoing AK (actinic keratosis) BPH Dyslipidemia Elevated cholesterol FAMILY HISTORY OF OTHER SPECIFIED MALIGNANT NEOPLASM Hypertension Lipoma Procedure/Surgical History Total left shoulder replacement| Service Date: nee replacement| Service Date: 07/27/2021Excision of lipoma| Service Date: 09/16/2015ProcedureProcedure Medications atorvastatin(atorvastatin 80 mg oral tablet), 80 mg= 1 tab, PO, Daily cholecalciferol(Vitamin D3), 50 mcg, Daily ezetimibe(Zetia 10 mg oral tablet), 10 mg= 1 tab, PO, Daily finasteride(finasteride 5 mg oral tablet), 5 mg= 1 tab, PO, Daily fluorouracil topical(Efudex 5% topical cream), 1 appl, topical, bid, 1 refills lisinopril(lisinopril 2.5 mg oral tablet) metoprolol(Toprol-XL 25 mg oral tablet, extended release), 25 mg= 1 tab, Daily rivaroxaban(Xarelto 20 mg oral tablet), 20 mg= 1 tab, PO, qPM triamcinolone topical(triamcinolone 0.1% topical cream), 1 appl, topical, bid, 3 refills Allergies NKA Social History Smoking Status Former Smoker, quit > 1 yr Electronic Signature on File Electronically Reviewed/Signed by: SARAHI Esquivel Author Signature Dt/Tm:01/23/2024 02:53 PM Department of Family Medicine Department of Dermatology DMS Patient Care team information Care Team Personnel Name: MD Cristina, Sarah Rvai Position: Referring Member Role: Primary Care Provider Address: [facility] Internal Medicine [address] [address] Care Team Related Persons Name: WILLIE MAYNARD"
--- NOTE | 2024-03-02 12:09 | Anesthesiology Progress Note ---
Date of Service March 02, 2024 Anesthesia Post Procedure Vital Signs Vital Signs: Temp Pulse Pulse Resp BP BP Pulse Ox 03/02/24 12:00 68 19 127/75 93 03/02/24 11:50 70 21 135/78 93 03/02/24 11:40 69 22 131/83 93 03/02/24 11:30 36.0 C L 78 16 151/89 H 93 03/02/24 08:19 03/02/24 08:19 36.8 C 60 18 147/93 H 96 O2 Del Method O2 Flow Rate 03/02/24 12:00 Oxymask 10 03/02/24 11:50 Oxymask 10 03/02/24 11:40 Oxymask 10 03/02/24 11:30 Oxymask 10 03/02/24 08:19 Room Air 03/02/24 08:19 Room Air Pain Intensity Right Shoulder: Pain Intensity: 1 Transfer of Care Handoff Completed per policy Notes Mental Status: alert / awake / arousable and participated in evaluation Patient Amnestic to Procedure: Yes Nausea / Vomiting: adequately controlled Pain: adequately controlled Airway Patency, RR, SpO2: stable & adequate BP & HR: stable & adequate Hydration State: stable & adequate Anesthetic Complications: no major complications apparent and Pt Satisfied with anesthetic care
--- NOTE | 2024-03-02 13:14 | XRay Report ---
XR shoulder RT min 2V routine HISTORY: 78 years-old Male Post shoulder surgery COMPARISON: 11/09/2023 TECHNIQUE: 2 views of the right shoulder FINDINGS: Satisfactory alignment of the right shoulder arthroplasty. Overlying skin fabián with expected posto perative soft tissue swelling and deep tissue air. Right basilar atelectasis. IMPRESSION: Right shoulder arthroplasty with expected postoperative changes. ACT 112: Negative or not required by law. The above report was generated using voice recognition software. It may contain grammatical, syntax o r spelling errors. Electronically signed by: Rigoberto Castillo M.D. 03/02/2024 1:12 PM
[2024-03-02] MEDS ORDERED: METOCLOPRAMIDE HCL INJ 5 MG/ML 2 ML VIAL IV PRN (14:16)
[2024-03-02] MEDS ORDERED: bisacodyL 10 MG SUPP PR PRN (14:16)
[2024-03-02] MEDS ORDERED: NALOXONE HCL 0.4 MG/1 ML VIAL/CARP IV PRN (14:16)
[2024-03-02] MEDS ORDERED: MAGNESIUM HYDROXIDE SUSP 30 ML UDC PO PRN (14:16)
[2024-03-02] MEDS ORDERED: oxyCODONE HCL IR 5 MG TAB (IMMEDIATE RELEASE) PO PRN (14:16)
[2024-03-02] MEDS ORDERED: HYDROmorphone INJ 0.5 MG/0.5 ML SYR IV PRN (14:16)
[2024-03-02] MEDS: SODIUM CHLORIDE 0.9% 1,000 ML IV SCH (15:43)
[2024-03-02] MEDS: KETOROLAC TROMETHAMINE 15 MG/ML VIAL IV SCH (15:43)
[2024-03-02] MEDS: SENNA 8.6 MG TAB PO SCH (20:42)
[2024-03-02] MEDS: METOPROLOL SUCC 50MG EXT REL TAB PO SCH (20:42)
[2024-03-02] MEDS: FINASTERIDE 5 MG TAB PO SCH (20:42)
[2024-03-02] MEDS: ATORVASTATIN 40 MG TAB PO SCH (20:42)
[2024-03-02] MEDS: DOCUSATE SODIUM 100 MG CAP PO SCH (20:42)
[2024-03-03 03:52] VITALS: TEMP 97.3
--- NOTE | 2024-03-03 07:08 | Orthopedic Progress Note ---
Date of Service March 03, 2024 Assessment & Plan (1) Status post reverse total replacement of right shoulder: Overall he is doing very well. He is not having much pain in the right shoulder. He will be seen by physical therapy today for ambulation and range of motion exercises. He can be discharged to home later today. He will follow-up orthopedics in 2 weeks. Darwin Bond was seen and examined at bedside this morning. Overall is doing very well. He is not having much pain in the right shoulder. He has been up and ambulating to the bathroom. He has no complaints.. Review of Systems All systems reviewed & are unremarkable except as noted in HPI & below. Physical Exam On physical examination of the right shoulder, the dressing is clean and dry. He is wearing his sling as instructed. The nerve block is still in effect.. Results & Data Results & Data Laboratory Results . Diagnostic Findings Postoperative x-rays of the right shoulder show the prosthesis to be in anatomic alignment without any evidence of fracture complication, or loosening.. PG Care Time/CCT Total # of Minutes Spent Total Time Spent with Patient: Total time spent is greater than 50% in coordination of care (as documented) at patient's floor/unit and/or counseling patient: Coding Level of Care Code 17964 Post Operative Follow-Up Diagnoses Status post reverse total replacement of right shoulder Z96.611
--- NOTE | 2024-03-03 07:09 | Discharge Summary ---
Date of Service March 03, 2024 Admission HPI (Per Admitting) Varun is a pleasant 78-year-old male who I did a left reverse shoulder arthroplasty on about 15 months ago. He has done well with that. Unfortunately, he has been dealing with increasing right shoulder pain. 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 After failing extensive conservative treatment, he has elected to proceed with a right reverse shoulder arthroplasty. Admission Exam (Per Admitting) On physical examination of the right shoulder, he has decreased range of motion and weakness throughout.. Principal Diagnosis Same as "Discharge Diagnosis" noted below under Discharge Instructions. Discharge Exam On physical examination of the right shoulder, the dressing is clean and dry. He is wearing his sling as instructed. The nerve block is still in effect.. Discharge Data Procedures Performed Operation Date: 03/02/24 10:00 Actual Procedures p Right Reverse Total Shoulder Arthroplasty(Right) - Geo Cannon DO Ordered Studies 02/13/24 05:00 US - OR guided needle placemen Routine Hospital Course (1) Status post reverse total replacement of right shoulder: On March 02, 2024 Varun arrived at [facility] and underwent a right reverse shoulder replacement without complication. He had a general anesthetic and a right interscalene nerve block. Postoperatively he was placed in a sling and transferred to the general orthopedic floors. His hospital course was uneventful. On postop day 1, his vital signs were stable and his pain was well-controlled. He was able to participate well with physical therapy doing ambulation and range of motion exercises. He was then discharged to home. He will follow-up orthopedics in 2 weeks. PG Care Time/CCT Total # of Minutes Spent Total Time Spent with Patient: Total time spent is greater than 50% in coordination of care (as documented) at patient's floor/unit and/or counseling patient: Discharge Plan Discharge Items Patient Disposition: Home - Self-Care Reason For Visit: Degenerative Joint Disease Right Shoulder Discharge Diagnosis: Right reverse shoulder replacement Activity: Per Instructions section Non-emergency contact: Surgeon Call non-emergency contact if: your wound has increased redness and your wound has increased drainage Follow-up/Referrals: Melodie Pearl DO [Primary Care Provider] - Diet: Regular Addtl Attending Provider Instructions: Activity and Therapy Recommendations: * If you are using [facility] then therapy will be provided at your home until they feel you have accomplished all of your goals. * If you are using [facility] then Physical Therapy will be provided until they feel you are ready to start Outpatient Physical Therapy. * If you are not using home therapy then Outpatient Physical Therapy should start about 3-5 days from your day of surgery. Therapy will last about 8-12 weeks * Wear your sling for 3 weeks, unless otherwise instructed. You may remove your sling to shower and to dress, but otherwise, you should be in your sling at all times, including while sleeping * The shoulder replacement is very stable and you can use your hand while in the sling * You were shown a series of exercises in the hospital. Do these exercises daily including the exercises you were shown in physical therapy. Medications: * Narcotic You will likely be sent home from the hospital with a prescription for the narcotic pain medication that worked best throughout your stay. * Cefadroxil -take the antibiotic twice a day for 10 days to help prevent infection. * Other medications may be prescribed for specific circumstances. If you have any questions, please call the office at . * Resume previous home medications unless otherwise instructed Dressing Care: Leave the Silverlon dressing in place for 7 days. After 7 days you may remove the dressing. If the incision is not draining then you may leave the fabián open to air. If there is a little bit of drainage or if the fabián are getting stuck on your clothing then cover the incision with a dry dressing. The fabián will be removed at your 2 week follow-up appointment. Showering: You may shower with the Silverlon dressing in place. Do not let the shower spray hit the dressing directly. Pat the Silverlon dressing dry. If the dressing becomes wet underneath, then simply remove the dressing. Keep the incision dry until you are 7 days out from the day of surgery. After 7 days you may remove the Silverlon dressing and shower with the fabián exposed. Let soapy water run over the fabián and pat them dry. Do not scrub or soak the incision. Diet: You may resume your previous diet. Things To Watch For: * Drainage from the incision site that occurs more than one week after your surgery. * Increased redness at the incision site. * Fever above 102 degrees Fahrenheit. * Unusual chest pain or shortness of breath. * Call [facility] at with any of the above problems Follow-Up Visit: Follow-up with Dr. Cannon's PA (Geo Martino) 2-3 weeks after your day of surgery. He will remove your fabián and answer any questions. If you have any additional questions or concerns, Dr Cannon is usually in the office at the same time and will be available An appointment was probably scheduled when you signed-up for surgery in the office. If you have any questions call More detailed instructions as well as Frequently Asked Questions were provided in a folder by our office when you signed-up for surgery. Please review these instructions when you get home. If you have any further questions or concerns, please feel free to call the office at [phone] Pending Studies at Discharge: No Stand-Alone Forms: My [facility], Smoking Cessation Medications and DC Order Prescriptions: New oxycodone 5 mg Tablet 5 mg PO Q4H PRN (Reason: pain) Qty: 30 0RF cefadroxil 500 mg capsule 500 mg PO BID 10 Days Qty: 20 0RF Continued lisinopril 2.5 mg tablet 2.5 mg PO QAM Qty: 90 3RF metoprolol succinate 50 mg tablet extended release 24 hr 50 mg PO HS Qty: 90 3RF ezetimibe [Zetia] 10 mg tablet 10 mg PO QAM Qty: 90 3RF cholecalciferol (vitamin D3) 2,000 unit capsule 2,000 units PO QAM rivaroxaban 20 mg tablet 20 mg PO HS Qty: 90 3RF acetaminophen 500 mg capsule 1,000 mg PO TID PRN (Reason: Pain) Rx Instructions: TAke 3 times per day to lessen pain. atorvastatin 80 mg tablet 80 mg PO QPM Rx Instructions: TAKE 1 TABLET EVERY EVENING finasteride 5 mg tablet 5 mg PO HS Discharge Orders: Discharge Order (Routine); Ordered 03/03/24 Ordered By: Geo Cannon Admission Data Admit Date/Time: 03/02/24 11:26 Attending Provider: Geo Cannon Admit Provider: Geo Cannon Primary Care Provider: Melodie Pearl
[2024-03-03 08:10] VITALS: BP 146/75; PULSE 64; RESP 16; O2SAT 96
[2024-03-03] MEDS: MULTIVITAMIN TAB PO SCH (08:13)
[2024-03-03] MEDS: RIVAROXABAN 20 MG TAB PO SCH (08:13)
[2024-03-03] MEDS: EZETIMIBE 10 MG TAB PO SCH (08:14)
[2024-03-03] MEDS: dexAMETHasone 4 MG TAB PO SCH (08:14)
[2024-03-03] MEDS: lisinopril 2.5 MG TAB PO SCH (08:14)
[2024-03-03] MEDS ORDERED: RIVAROXABAN 20 MG TAB PO SCH (16:30)
== END 2024-03-03 10:52 | disposition home or self-care (01) ==
LOC: PACUINP 07:36 → ASU 07:36 → 3W 14:00